=== PATIENT | female | born 1965 | race Caucasian/White ===

== ENCOUNTER 2016-08-19 07:54 | Inpatient (IN) | payer MEDICAID ==
[~2016-08-19 07:54] MED LIST: Bupivacaine 0.5% 50 ML MDV ONE; Lidocaine 1% with EPINEPHrine 1:100,000 50 ML MDV ONE
[2016-08-19] MEDS: Dextrose 5%-Lactated Ringers 1,000 ML IV SCH ×2 (08:29→15:31)
[2016-08-19] MEDS ORDERED: fentaNYL 25 MCG/HR Transdermal Patch TRDERM SCH (08:30)
[2016-08-19] MEDS ORDERED: ceFAZolin 2 GM in Sodium Chloride 0.9% 50 ML IV ONE (09:15)
[2016-08-19] MEDS ORDERED: ceFAZolin 2 GM in Premix Bag 1 BAG IV ONE (09:15)
[2016-08-19] MEDS ORDERED: HYDROmorphone/Normal Saline 15 MG/30 ML PCA IV PRN (09:47)
[2016-08-19] MEDS ORDERED: Naloxone 0.4 MG/ML SDV IVPUSH PRN (09:47)
[2016-08-19] MEDS ORDERED: Midazolam 1 MG/ML 2 ML SDV ONE (11:52)
[2016-08-19] MEDS ORDERED: fentaNYL 250 MCG/5 ML SDV ONE (11:52)
[2016-08-19] MEDS ORDERED: Bupivacaine 0.5%/EPINEPHrine 1:200,000 50 ML MDV ONE (11:55)
[2016-08-19] MEDS ORDERED: Propofol 200 MG/20 ML SDV ONE (12:09)
[2016-08-19] MEDS ORDERED: Ondansetron 4 MG/2 ML SDV ONE (12:09)
[2016-08-19] MEDS ORDERED: Rocuronium 50 MG/5 ML Vial ONE (12:09)
[2016-08-19] MEDS ORDERED: Dexamethasone 4 MG/ML SDV ONE (12:09)
[2016-08-19] MEDS ORDERED: Neostigmine Methylsulfate 1 MG/ML 5 ML Syringe ONE (12:09)
[2016-08-19] MEDS ORDERED: Linezolid 200 MG/100 ML Bag IRR ONE (12:46)
[2016-08-19] MEDS ORDERED: Ketorolac 60 MG/2 ML SDV ONE (12:48)
[2016-08-19] MEDS ORDERED: Pantoprazole 40 MG Vial IVPUSH ONE (13:15)
[2016-08-19] MEDS ORDERED: Ondansetron 4 MG/2 ML SDV IVPUSH ONE (13:30)
[2016-08-19] MEDS ORDERED: Naloxone 0.4 MG/ML SDV IV PRN (14:38)
[2016-08-19] MEDS: VERIFY FENTANYL PATCH TOP SCH ×2 (15:02→21:14)
[2016-08-19] MEDS ORDERED: Acetaminophen 325 MG Tab PO PRN (16:21)
[2016-08-19] MEDS: Nicotine 21 MG/24 Hr Patch TRDERM PRN (16:41)
[2016-08-19] MEDS: ceFAZolin 2 GM in Sodium Chloride 0.9% 50 ML IV SCH (17:37)
[2016-08-19] MEDS ORDERED: diphenhydrAMINE 50 MG/ML SDV IVPUSH PRN (19:18)
[2016-08-19] MEDS: Acetaminophen/oxyCODONE 325-5 MG Tab PO PRN (21:18)
[2016-08-19] MEDS: Ibuprofen 600 MG Tab PO PRN (23:47)
[2016-08-20] MEDS: Acetaminophen/oxyCODONE 325-5 MG Tab PO PRN ×3 (01:30→09:36)
[2016-08-20] MEDS: ceFAZolin 2 GM in Sodium Chloride 0.9% 50 ML IV SCH ×2 (01:31→09:16)
[2016-08-20] MEDS: Nicotine 21 MG/24 Hr Patch TRDERM PRN (07:43)
[2016-08-20] MEDS: Ibuprofen 600 MG Tab PO PRN (07:43)
[2016-08-20 07:55] VITALS: BP 128/61
[2016-08-20] MEDS ORDERED: Pantoprazole 40 MG Vial IV SCH (09:00)
[2016-08-20] MEDS: VERIFY FENTANYL PATCH TOP SCH (09:17)
--- NOTE | 2016-08-21 03:56 | DISCH ---
ADMISSION DIAGNOSIS: Recurrent right inguinal hernia, primary essential hypertension. DISCHARGE DIAGNOSES: Right inguinal exploration with repair of recurrent inguinal hernia, removal of intraperitoneal foreign body (previous mesh division of right inguinal nerve and division of right inguinal hernia nerve) for recurrent right incisional hernia with entrapment of right inguinal nerve and interruption of intraperitoneal mesh on 08/19/2016. HISTORY: Darlene Saavedra is a 51-year-old female with right recurrent incisional hernia with increased pain. After preoperative evaluation and discussion of possible risks and possible complications, she wished to proceed with surgical procedure. HOSPITAL COURSE: Darlene had her surgery on 08/19/2016. She had no operative complications. On postop day #1, she was able to be discharged to home. PHYSICAL EXAMINATION: GENERAL: Darlene is a 51-year-old female. Height is 5 feet 5 inches. Weight is 166 pounds. VITAL SIGNS: TPR is 97.3, 65, 18, blood pressure 128/61. HEENT: Negative. NECK: Supple. HEART: Regular rate and rhythm. LUNGS: Clear. ABDOMEN: Dressings dry and intact. Abdominal binder is on. EXTREMITIES: Without peripheral edema. NEURO: Intact. SKIN: Without rash. DISPOSITION: Discharged to home. CONDITION: Stable and improving. FOLLOWUP APPOINTMENT: 1. With Consuelo Varela PA-C on 08/28/2016 at 9:00 a.m. 2. Follow up with Av Cobian MD on 09/03/2016 at 9 a.m. HOME MEDICATION: 1. Percocet 5/325 mg 1 to 2 every 4 hours p.r.n. pain #50. 2. Ibuprofen 600 mg q.6 hours p.r.n. lesser pain. 3. Fentanyl patch, remove on Thursday08/23/2016. 4. Continue home medications of Chantix one tablet twice daily, acetaminophen 650 mg every 4 hours p.r.n. pain. DIET: Usual diet as tolerated. Drink 8 to 10 glasses of water a day. ACTIVITY: No lifting greater than 10 pounds for 6 weeks[address] Driving, do not drive on pain medication. Shower bathing, may shower. Keep operative site clean and dry. Wear abdominal binder for 4 weeks and then as needed. Notify provider if any fever, increased pain, swelling, redness, drainage, nausea, or vomiting. SPECIAL INSTRUCTION: Use incentive spirometer 10 times every hour while awake for 2 weeks.
--- NOTE | 2016-08-22 14:02 | OR ---
DATE OF PROCEDURE: 08/19/2016 PREOPERATIVE DIAGNOSIS: Severe pain associated with recurrent incarcerated right inguinal hernia. POSTOPERATIVE DIAGNOSIS: Severe pain associated with recurrent incarcerated right inguinal hernia with entrapment of the ilioinguinal nerve and migration of intraperitoneal mesh above on the Addy's ligament. OPERATIVE PROCEDURE: Right inguinal exploration with: 1. Repair of recurrent right inguinal hernia with mesh plug technique (93785). 2. Removal of intraperitoneal of foreign body (previously placed mesh) (66097). 3. Division of right ilioinguinal nerve (88807). 4. Division of right iliohypogastric nerve (45041). ANESTHESIA: General. CAKE WRAPPER: Consuelo Varela PA-C. INDICATIONS FOR PROCEDURE: This is a 51-year-old presenting with marked pain in the right inguinal area. She has had previously 2 repairs of the hernia. One of this involved laparoscopic transperineal approach. That peritoneal mesh has now migrated into the plane above Addy's ligament, and this appeared to be associated with marked pain along with recurrence of the hernia. The plan is to proceed with a right inguinal exploration, removal of those mesh, and re-repair of the inguinal hernia, and division of the probably both the right ilioinguinal and iliohypogastric nerves to limit postoperative pain. Potential risks including bleeding, infection, recurrence of the hernia, chronic pain consisting were all reviewed, and the patient wishes to proceed. DETAILS OF PROCEDURE: The patient was taken to the operating room and placed in a supine position. After general endotracheal anesthesia was induced, the abdomen and groin areas were prepped and draped. Previously the right inguinal incision was then reused and extended slightly laterally, continued down through the skin and subcutaneous tissue. The external oblique aponeurosis was then divided to the length of the incision and some flaps raised superiorly and inferiorly. The 2 previously placed meshes were then excised using electrocautery. The more lateral of these truly had the ilioinguinal nerve entering a massive scar and more or less involving the mesh. This nerve was divided at that point, then also divided further lateral in the incision. The iliohypogastric nerve was then also identified and divided at the far lateral aspect of the incision. The patient had an indirect defect at this point, and dissection of the conjoined tendon superiorly, laterally, and inferiorly was undertaken bluntly. An extra large mesh plug was then placed. This was then affixed to Addy's ligament with titanium tacking screws, which should in all likelihood to keep that in proper position. The mesh was then secured with horizontal mattress sutures and is underlying the edges of the conjoined tendon superiorly, laterally, and medially. The conjoined tendon secured to the inguinal ligament with a running 1-0 Vicryl stitch to avoid problems with the patient feeling pain related to the more superficial mesh. The flat portion of the mesh system was not placed in this case. External oblique aponeurosis was approximated with a running #1 Vicryl stitch as well. The larger stitch was usually used as this was actually quite densely scarred and would likely have some substantial benefit in terms of reinforcing the closure. The subcutaneous tissue was then approximated with some 3-0 Vicryl stitch and the skin with debra. The incision was then anesthetized with 0.5% Marcaine. The patient was taken to the recovery room in satisfactory condition. Physician anesthesia assistant, Consuelo Varela played an essential role in assisting in this case, helping position the patient, suturing and stapling as indicated, and her presence improved the patient safety and decreased operative time. Av Cobian MD /[id number]
== END 2016-08-20 10:00 | disposition home or self-care (01) | DRG 352 ==
LOC: JP.MS 07:54 → JP.SDS 07:54 → EDSTATUS 10:15 → JP.2SS 13:56
PROVIDERS: ADMIT Surgery; ATTEND Surgery
PROC: 0YU54JZ Supplement Right Inguinal Region with Synthetic Substitute, Percutaneous Endoscopic Approach (ICD-10-PCS; principal; 2016-08-19)
PROC: 018 Peripheral Nervous System, Division (ICD-10-PCS; 2016-08-19)
PROC: 0WPG4JZ Removal of Synthetic Substitute from Peritoneal Cavity, Percutaneous Endoscopic Approach (ICD-10-PCS; 2016-08-19)
DX: K40.90 Unilateral inguinal hernia, without obstruction or gangrene, not specified as recurrent (principal); F41.9 Anxiety disorder, unspecified; I10 Essential (primary) hypertension; F17.210 Nicotine dependence, cigarettes, uncomplicated
CPT/HCPCS: 36415; 80053; 85027; 88300; 88305; 94762; A9270-GY; C1781; C9113; J0690; J1100; J1170; J1200; J1885; J2020; J2250; J2405; J2704; J3010; J7042; J7050

== ENCOUNTER 2016-08-23 14:41 | Emergency (ER) | payer MEDICAID ==
[2016-08-23 15:29] VITALS: BP 136/95
--- NOTE | 2016-08-23 16:28 | EDM.PDOC ---
ED HPI GENERAL MEDICAL PROBLEM - General Chief Complaint: General Stated Complaint: PAIN RIGHT LEG SURGERY 08/19/16 Time Seen by Provider: 08/23/16 16:05 Source of Information: Reports: Patient, Family, RN notes reviewed History Limitations: Reports: No limitations - History of Present Illness INITIAL COMMENTS - FREE TEXT/NARRATIVE: 51-year-old female presents to emergency department for a complaint of shortness of breath, she recently had surgery she is postop day 4 she states she has progressively been getting short of breath over the last couple days she 's developed right leg pain over the last 24 hours she denies any nausea or vomiting, she is passing gas does describe heartburn type symptomatology with pain radiating into the back Right Lower Abdominal Pain Score (Numeric/FACES): 5 - Related Data Allergies Allergy/AdvReac Type Severity Reaction Status Date / Time No Known Allergies Allergy Verified 08/18/16 13:45 Home Meds: Home Meds Varenicline [Chantix] 1 tab PO BID 05/11/16 [History] Acetaminophen [Tylenol] 650 mg PO Q4H PRN #0 tablet 08/20/16 [Rx] Acetaminophen/oxyCODONE [Percocet 325-5 MG] 1 - 2 tab PO Q4H PRN #50 tablet 01/29 [Rx] Ibuprofen [IJD: Ibuprofen] 600 mg PO Q6H PRN #100 tablet 08/20/16 [Rx] Past Medical History HEENT History: Reports: Allergic rhinitis, Impaired vision Respiratory History: Reports: Bronchitis, recurrent Gastrointestinal History: Reports: Bowel obstruction, Other (see below) Other Gastrointestinal History: right inguinal hernia Hematoma removed from groin Hernia surgery x6. Genitourinary History: Reports: Other (see below) Other Genitourinary History: Cyst on kidney MD DO [facility] History: Reports: Dysfunctional uterine bleeding, Endometriosis, Fibroids , , Spontaneous Other OB/BYN History: "tumor in uterus" Musculoskeletal History: Reports: Fracture, Osteoarthritis Psychiatric History: Reports: Anxiety, Panic attack - Infectious Disease History Infectious Disease History: Reports: Mumps - Past Surgical History GI Surgical History: Reports: Hernia repair/other Other GI Surgeries/Procedures: Hernia surgery x6. r side. Female Surgical History: Reports: Hysterectomy Musculoskeletal Surgical History: Reports: Other (see below) Other Musculoskeletal Surgeries/Procedures:: ulner nerve surgery Pins in l ankle Social & Family History - Family History Family Medical History: Noncontributory HEENT: Reports: Impaired vision Cardiac: Reports: Heart failure Respiratory: Reports: COPD GI: Reports: None : Reports: None OBGYN: Reports: None Musculoskeletal: Reports: Fibromyalgia Neurological: Reports: None Psychiatric: Reports: Anxiety, Depression, Panic attack Endocrine/Metabolic: Reports: Diabetes, type II Hematologic: Reports: None Immunologic: Reports: None Dermatologic: Reports: None Oncologic: Reports: Ovarian - Tobacco Use Smoking Status *Q: Light Tobacco Smoker Years of Tobacco use: 30 Packs/Tins Daily: 0.5 Used Tobacco, but Quit: Yes Month Tobacco Last Used: Dec Second Hand Smoke Exposure: No - Caffeine Use Caffeine Use: Reports: Coffee Other Caffeine Use: 6 cups a day - Alcohol Use Days Per Week of Alcohol Use: 1 Number of Drinks Per Day: 1 Total Drinks Per Week: 1 - Recreational Drug Use Recreational Drug Use: No ED ROS GENERAL - Review of Systems Review Of Systems: See Below Constitutional: Denies: fever, chills HEENT: Reports: No symptoms Respiratory: Reports: shortness of breath. Denies: cough, sputum Cardiovascular: Reports: Dyspnea on exertion. Denies: Chest pain GI/Abdominal: Reports: No symptoms : Reports: no symptoms Musculoskeletal: Reports: leg pain Skin: Reports: no symptoms Neurological: Reports: no symptoms ED EXAM, GENERAL - Physical Exam Exam: See Below Free Text/Narrative:: General: Female, not in any distress, alert and oriented x3 HEENT: head is atraumatic normocephalic, eyes pupils equal round reactive to light and accommodation sclera clear no conjunctivitis appreciated. Ears tympanic membranes clear and peres landmarks and light reflex are present bilaterally canals are clear. Nose no septal deviation, nares are clear, no blood present. Mouth mucosa is moist and pink no erythema or exudate noted in soft palate, tongue is midline uvula is midline, dentition is intact. Neck: Supple no thyromegaly no tracheal deviation. Nodes: Cervical nodes subclavicular nodes nontender no palpable lymphadenopathy noted. Lungs: clear to auscultation bilaterally with symmetrical respirations, no adventitious noise appreciated. CV: Regular rate and rhythm S1 and S2 appreciated no murmurs rubs or gallops noted. Abdomen: Soft, generalized tenderness to palpation not unexpected postop day 4, no palpable masses or organomegaly appreciated, no distention no guarding bowel sounds are present, surgical wound clean dry and intact debra in place mild ecchymotic bruising around the wound. Neuro: Cranial nerves II through XII grossly intact Skin: Warm and dry, intact Extremities: No lower extremity edema appreciated, pedal pulse is +2. Course - Vital Signs Last Recorded V/S: Last Vital Signs Temp 98.4 F 08/23/16 15:29 Pulse 77 08/23/16 15:29 Resp 16 08/23/16 15:29 BP 136/95 H 08/23/16 15:29 Pulse Ox 99 08/23/16 15:29 - Orders/Labs/Meds Orders: Active Orders 24 hr Category Date Time Status EKG Documentation Completion [RC] ASDIRECTED Care 08/23/16 16:24 Active Chest 2V [CR] Urgent Exams 08/23/16 16:23 Taken EKG 12 Lead [EK] Urgent Ther 08/23/16 16:23 Ordered Labs: Laboratory Tests 08/23/16 08/23/16 08/23/16 Range/Units 16:34 16:34 16:34 WBC 5.3 (4.5-11.0) K/uL RBC 4.58 (3.30-5.50) M/uL Hgb 14.2 (12.0-15.0) g/dL Hct 42.8 (36.0-48.0) % MCV 93 (80-98) fL MCH 31 (27-31) pg MCHC 33 (32-36) % Plt Count 130 L (150-400) K/uL Neut % (Auto) 44 (36-66) % Lymph % (Auto) 41 (24-44) % [place] % (Auto) 8 H (2-6) % Eos % (Auto) 6 H (2-4) % Baso % (Auto) 2 H (0-1) % D-Dimer, Quantitative 430 H (0.0-400.0) ng/mL Sodium 141 (140-148) mmol/L Potassium 4.4 (3.6-5.2) mmol/L Chloride 105 (100-108) mmol/L Carbon Dioxide 30 (21-32) mmol/L Anion Gap 6.0 (5.0-14.0) mmol/L BUN 13 (7-18) mg/dL Creatinine 0.8 (0.6-1.0) mg/dL Est Cr Clr Drug Dosing 74.02 mL/min Estimated GFR (MDRD) > 60 (>60) Glucose 113 H (74-106) mg/dL Calcium 8.9 (8.5-10.1) mg/dL Total Bilirubin 0.3 (0.2-1.0) mg/dL AST 57 H D (15-37) U/L ALT 97 H (12-78) U/L Alkaline Phosphatase 94 (46-116) U/L Troponin I < 0.017 (0.000-0.056) ng/mL Total Protein 6.9 (6.4-8.2) g/dL Albumin 3.4 (3.4-5.0) g/dL Globulin 3.5 (2.3-3.5) g/dL Albumin/Globulin Ratio 1.0 L (1.2-2.2) Urine Color Urine Appearance Urine pH (4.5-8.0) Ur Specific [place] (1.008-1.030) Urine Protein (NEGATIVE) mg/dL Urine Glucose (UA) (NEGATIVE) mg/dL Urine Ketones (NEGATIVE) mg/dL Urine Occult Blood (NEGATIVE) Urine Nitrite (NEGATIVE) Urine Bilirubin (NEGATIVE) Urine Urobilinogen (NORMAL) mg/dL Ur Leukocyte Esterase (NEGATIVE) Urine RBC (0-5) Urine WBC (0-5) Ur Epithelial Cells Amorphous Sediment Urine Bacteria Urine Mucus 08/23/16 Range/Units 16:53 WBC (4.5-11.0) K/uL RBC (3.30-5.50) M/uL Hgb (12.0-15.0) g/dL Hct (36.0-48.0) % MCV (80-98) fL MCH (27-31) pg MCHC (32-36) % Plt Count (150-400) K/uL Neut % (Auto) (36-66) % Lymph % (Auto) (24-44) % [place] % (Auto) (2-6) % Eos % (Auto) (2-4) % Baso % (Auto) (0-1) % D-Dimer, Quantitative (0.0-400.0) ng/mL Sodium (140-148) mmol/L Potassium (3.6-5.2) mmol/L Chloride (100-108) mmol/L Carbon Dioxide (21-32) mmol/L Anion Gap (5.0-14.0) mmol/L BUN (7-18) mg/dL Creatinine (0.6-1.0) mg/dL Est Cr Clr Drug Dosing mL/min Estimated GFR (MDRD) (>60) Glucose (74-106) mg/dL Calcium (8.5-10.1) mg/dL Total Bilirubin (0.2-1.0) mg/dL AST (15-37) U/L ALT (12-78) U/L Alkaline Phosphatase (46-116) U/L Troponin I (0.000-0.056) ng/mL Total Protein (6.4-8.2) g/dL Albumin (3.4-5.0) g/dL Globulin (2.3-3.5) g/dL Albumin/Globulin Ratio (1.2-2.2) Urine Color Yellow Urine Appearance Slightly cloudy Urine pH 7.0 (4.5-8.0) Ur Specific [place] 1.015 (1.008-1.030) Urine Protein Negative (NEGATIVE) mg/dL Urine Glucose (UA) Normal (NEGATIVE) mg/dL Urine Ketones Negative (NEGATIVE) mg/dL Urine Occult Blood Negative (NEGATIVE) Urine Nitrite Negative (NEGATIVE) Urine Bilirubin Negative (NEGATIVE) Urine Urobilinogen Normal (NORMAL) mg/dL Ur Leukocyte Esterase Negative (NEGATIVE) Urine RBC 0-5 (0-5) Urine WBC 0-5 (0-5) Ur Epithelial Cells Few Amorphous Sediment Moderate Urine Bacteria Not seen Urine Mucus Not seen Meds: Medications Discontinued Medications Generic Name Dose Route Start Last Admin Trade Name Freq PRN Reason Stop Dose Admin Al Hydroxide/Mg Hydroxide 15 0 ml 08/23/16 17:29 08/23/16 17:40 ml/ Lidocaine HCl 15 ml PO 08/23/16 17:30 15 ml ONETIME ONE Administration Oxycodone/Acetaminophen 2 tab 08/23/16 17:19 08/23/16 17:21 Percocet 325-5 Mg PO 08/23/16 17:20 2 tab ONETIME ONE Administration Departure - Departure Time of Disposition: 17:56 Disposition: Home, Self-Care 01 Condition: good Clinical Impression: Epigastric pain Forms: ED Department Discharge Additional Instructions: try [id number] products such as Tomy's, Zantac or Nexium, Please followup with your primary care provider in 3-5 days if not better, please call return to the emergency department with worsening of symptoms. - My Orders Last 24 Hours: My Active Orders 08/23/16 16:23 Chest 2V [CR] Urgent EKG 12 Lead [EK] Urgent 08/23/16 16:24 EKG Documentation Completion [RC] ASDIRECTED - Assessment/Plan Last 24 Hours: My Active Orders 08/23/16 16:23 Chest 2V [CR] Urgent EKG 12 Lead [EK] Urgent 08/23/16 16:24 EKG Documentation Completion [RC] ASDIRECTED Plan: Assessment Acuity = acute Site and laterality = reflux type symptomatology Etiology = unclear etiology Manifestations = none Location of injury = home Lab values = CBC unremarkable, d-dimer mildly elevated at 4:30 of indeterminate significance AST elevated 57 ALT elevated at 97 2 elevated liver enzymes troponin was negative urinalysis is negative chest x-ray I did review films myself I cannot appreciate any acute process, the official read from radiology is pending, EKG demonstrates normal sinus rhythm no ST changes or depression Plan she was provided a GI cocktail which did give her significant relief she does have a history of reflux symptomology this possibly could have been exacerbated by her recent surgery she is going try [id number] symptomatic relief followup with surgery next week Patient was in agreement with the plan all questions were answered, they were instructed to return to the emergency department or call for worsening symptoms. This note was dictated using [employer] voice recognition software please call with any questions.
[2016-08-23] MEDS ORDERED: Acetaminophen/oxyCODONE 325-5 MG Tab PO ONE (17:19)
[2016-08-23] MEDS ORDERED: Alum Hydrox/Mag Hydrox/Simeth 15 ML, Lidocaine 2% 15 ML PO ONE ×2 (17:29)
--- NOTE | 2016-08-25 11:04 | CR ---
Heart size within normal limits. Pulmonary vasculature within normal limits. No focal consolidation.
== END 2016-08-23 18:03 | disposition home or self-care (01) ==
LOC: JP.ED 14:41
DX: R10.13 Epigastric pain (principal); F17.210 Nicotine dependence, cigarettes, uncomplicated; Z79.899 Other long term (current) drug therapy; Z90.710 Acquired absence of both cervix and uterus
CPT/HCPCS: 36415; 71020; 80053; 81001; 84484; 85025; 85379; 93005; 99285; A9270; 93010; 99283

== ENCOUNTER 2016-11-11 06:52 | Day surgery (SDC) | payer MEDICAID ==
[~2016-11-11 06:52] MED LIST changes: -Bupivacaine 0.5% 50 ML MDV ONE; +Dextrose 5%-Lactated Ringers 1,000 ML IV SCH; -Lidocaine 1% with EPINEPHrine 1:100,000 50 ML MDV ONE
[2016-11-11] MEDS ORDERED: ceFAZolin 2 GM in Premix Bag 1 BAG IV ONE (07:00)
[2016-11-11] MEDS ORDERED: Lidocaine 1% 50 ML MDV ONE (07:36)
[2016-11-11] MEDS ORDERED: Triamcinolone Acetonide 40 MG/ML 1 ML MDV ONE (07:36)
[2016-11-11] MEDS ORDERED: Bupivacaine 0.5%/EPINEPHrine 1:200,000 50 ML MDV ONE (07:36)
[2016-11-11] MEDS ORDERED: Propofol 200 MG/20 ML SDV ONE (08:35)
[2016-11-11] MEDS ORDERED: fentaNYL 100 MCG/2 ML SDV ONE (08:35)
[2016-11-11] MEDS ORDERED: Midazolam 1 MG/ML 2 ML SDV ONE (08:35)
[2016-11-11 10:20] VITALS: BP 121/84
--- NOTE | 2016-11-27 14:24 | OR ---
DATE OF PROCEDURE: 11/11/2016 PREOPERATIVE DIAGNOSIS: Chronic pain with seroma formation at the site of previous repair of recurrent right inguinal hernia with mesh. POSTOPERATIVE DIAGNOSIS: Chronic pain with seroma formation at the site of previous repair of recurrent right inguinal hernia with mesh. PROCEDURE PERFORMED: 1. Ultrasound-guided aspiration of seroma, right inguinal area (30013). 2. Local anesthetic. Steroid injection at the site of right ilioinguinal nerve and genital branch of genitofemoral nerve (49457, 22111). ANESTHESIA: General. ARCHITECT INTERN: MYCHAL Mendez. INDICATION FOR PROCEDURE: This is a 51-year-old with chronic pain involving the multiply- repaired right inguinal area. Recent ultrasound showed a seroma present. This is in the area somewhat posterior to the mesh, which would correspond to likely connecting with some intraperitoneal fluid. The planned procedure is aspiration of this under ultrasound guidance, as a diagnostic and potentially therapeutic step. We will inject Kenalog with Marcaine at the site of the right ilioinguinal nerve and genital branch of genitofemoral nerve. Potential risks of the procedure including bleeding, infection, possibility of the procedure may not be efficacious in terms of pain relief were all gone over, and the patient wishes to proceed. PROCEDURE IN DETAIL: The patient was taken to the operating room, placed in a supine position. IV sedation was administered, after which the right inguinal region was prepped and draped. Ultrasound then identified the seroma. Using a 16-gauge angiocath; that area was entered under direct visualization with the ultrasound. Only a small amount of fluid was retrieved. This appeared to be in the retropubic plain, ie. retroperitoneal region in terms of the location. The small amount of fluid obtained was clear and serous and was sent for culture. The majority of the seroma cavity remained however, due to likely being semi- solidified at this point. At this point, using standard landmarks, the mixture of Marcaine with epinephrine and Kenalog with 10 mL in each syringe were injected at the right ilioinguinal nerve. This was placed in the muscular layer, two fingerbreadths medial and inferior to the anterior superior iliac spine and at the base of the inguinal floor medially, more or less at the level of the external ring. Additional 10 mL of this solution was injected, which should incorporate the genital branch of genitofemoral nerve. At that point, no further problems noted. The dressing was applied. The patient was taken to the recovery room in satisfactory condition. Av Cobian MD /[id number]
== END 2016-11-11 10:30 | disposition home or self-care (01) ==
LOC: JP.SDS 06:52
PROVIDERS: ATTEND Surgery
PROC: 0W9G30Z Drainage of Peritoneal Cavity with Drainage Device, Percutaneous Approach (ICD-10-PCS; principal; 2016-11-11)
PROC: 3E0T33Z Introduction of Anti-inflammatory into Peripheral Nerves and Plexi, Percutaneous Approach (ICD-10-PCS; 2016-11-11)
PROC: 3E0T3BZ Introduction of Anesthetic Agent into Peripheral Nerves and Plexi, Percutaneous Approach (ICD-10-PCS; 2016-11-11)
DX: K91.872 Postprocedural seroma of a digestive system organ or structure following a digestive system procedure (principal); Y83.8 Other surgical procedures as the cause of abnormal reaction of the patient, or of later complication, without mention of misadventure at the time of the procedure; G89.29 Other chronic pain; R10.31 Right lower quadrant pain
CPT/HCPCS: 49406; 64425; 64450; 76998; 87070; 87075; 87205; J0690; J2250; J2704; J3010; J3301; J7042

== ENCOUNTER 2016-11-28 05:32 | Inpatient (IN) | payer MEDICAID ==
[~2016-11-28 05:32] MED LIST changes: -Dextrose 5%-Lactated Ringers 1,000 ML IV SCH; +ceFAZolin 2 GM in Sodium Chloride 0.9% 100 ML IV ONE; +ceFAZolin 2 GM in Sodium Chloride 0.9% 50 ML IV ONE
[2016-11-28] MEDS ORDERED: Dextrose 5%-Lactated Ringers 1,000 ML IV SCH (05:45)
[2016-11-28] MEDS ORDERED: Rocuronium 50 MG/5 ML Vial ONE (06:55)
[2016-11-28] MEDS ORDERED: fentaNYL 250 MCG/5 ML SDV ONE (06:55)
[2016-11-28] MEDS ORDERED: Dexamethasone 4 MG/ML SDV ONE (06:55)
[2016-11-28] MEDS ORDERED: Succinylcholine/Normal Saline 200 MG/10 ML Syringe ONE (06:55)
[2016-11-28] MEDS ORDERED: Ondansetron 4 MG/2 ML SDV ONE (06:55)
[2016-11-28] MEDS ORDERED: Propofol 200 MG/20 ML SDV ONE (06:55)
[2016-11-28] MEDS ORDERED: Neostigmine Methylsulfate 1 MG/ML 5 ML Syringe ONE (06:55)
[2016-11-28] MEDS ORDERED: Bupivacaine 0.5%/EPINEPHrine 1:200,000 50 ML MDV ONE (07:00)
[2016-11-28] MEDS ORDERED: Meropenem 500 MG SDV ONE (07:00)
[2016-11-28] MEDS ORDERED: Naloxone 0.4 MG/ML SDV IVPUSH PRN (07:19)
[2016-11-28] MEDS ORDERED: HYDROmorphone/Normal Saline 15 MG/30 ML PCA IV PRN (07:19)
[2016-11-28] MEDS ORDERED: Linezolid 200 MG/100 ML Bag IRR ONE (07:35)
[2016-11-28] MEDS ORDERED: Lactated Ringers 1,000 ML ONE (08:18)
[2016-11-28] MEDS ORDERED: Labetalol 20 MG/4 ML Syringe ONE (08:46)
[2016-11-28] MEDS ORDERED: fentaNYL 100 MCG/2 ML SDV ONE (09:20)
[2016-11-28] MEDS ORDERED: Lidocaine 2% 100 MG/5 ML Syringe IVPUSH ONE (09:30)
[2016-11-28] MEDS ORDERED: Ketamine 500 MG/5 ML MDV IV SCH (09:30)
[2016-11-28] MEDS ORDERED: Gabapentin 300 MG Cap PO ONE (10:51)
[2016-11-28] MEDS ORDERED: hydrOXYzine HCl 50 MG/ML SDV IM ONE (10:53)
[2016-11-28] MEDS ORDERED: Lactated Ringers 500 ML IV ONE (11:00)
[2016-11-28] MEDS ORDERED: Ondansetron 4 MG/2 ML SDV IV PRN (12:04)
[2016-11-28] MEDS: Lidocaine 0.4%/D5W 2 GM/500 ML BAG IV SCH (13:26)
[2016-11-28] MEDS: Dextrose 5%-Lactated Ringers 1,000 ML IV SCH ×2 (15:14→22:15)
[2016-11-28] MEDS: Gabapentin 300 MG Cap PO SCH ×2 (16:15→20:50)
[2016-11-28] MEDS: ceFAZolin 2 GM in Sodium Chloride 0.9% 50 ML IV SCH ×2 (16:15→23:57)
[2016-11-28] MEDS: Celecoxib 200 MG Cap PO SCH (16:15)
[2016-11-29] MEDS: Acetaminophen/oxyCODONE 325-5 MG Tab PO PRN ×5 (01:17→21:27)
[2016-11-29] MEDS: Lidocaine 0.4%/D5W 2 GM/500 ML BAG IV SCH (01:58)
[2016-11-29] MEDS: Dextrose 5%-Lactated Ringers 1,000 ML IV SCH ×2 (05:20→14:47)
[2016-11-29] MEDS ORDERED: Ondansetron 4 MG Tab.DIS PO PRN (07:13)
[2016-11-29] MEDS ORDERED: Ibuprofen 600 MG Tab PO PRN (07:13)
[2016-11-29] MEDS ORDERED: Acetaminophen 325 MG Tab PO PRN (07:13)
[2016-11-29] MEDS: ceFAZolin 2 GM in Sodium Chloride 0.9% 50 ML IV SCH (08:05)
[2016-11-29] MEDS: Nicotine 14 MG/24 Hr Patch TRDERM SCH (08:12)
[2016-11-29] MEDS: Gabapentin 300 MG Cap PO SCH ×3 (08:13→21:28)
[2016-11-29] MEDS: Celecoxib 200 MG Cap PO SCH (08:13)
[2016-11-29] MEDS: Polyethylene Glycol 3350 Powder 17 GM Packet PO SCH (08:39)
--- NOTE | 2016-11-29 11:02 | PN ---
DATE OF SERVICE: 11/29/2016 SUBJECTIVE: Darlene is postop day #1, her Davis catheter was discontinued at 0400 hours and she has voided. She did report some blurred vision. Lidocaine was stopped, reporting her MACHINE PACKAGE SEALER was discontinued. During the night she was started on Percocet and she feels her pain is controlled, better on the Percocet than the MACHINE PACKAGE SEALER. She is requesting a nicotine patch. She has been on Chantix, but she has only taken it 2 to 3 days and prefers a nicotine patch. She reports not feeling weak, having a lot of pain, getting up and down from the chair and bed, and not comfortable to be discharged to home. She is requesting a stool softener. She states she gets extremely constipated, whenever she has surgery. REVIEW OF SYSTEMS: Remainder of review of systems negative for any pertinent positives and negatives. OBJECTIVE: GENERAL: Darlene Saavedra is a 51-year-old female, emotional this morning. VITAL SIGNS: TPR is 99.5, 80, 17, blood pressure 129/88. HEENT: Negative. NECK: Supple. HEART: Regular rate and rhythm. LUNGS: Clear. ABDOMEN: Dressings dry and intact. Abdominal binder is on. EXTREMITIES: Revealed trace peripheral edema. ASSESSMENT: Right inguinal exploration removal of mass, ligation of right ilioinguinal nerve, diagnostic laparoscopy with repair of right inguinal hernia with mesh, and repair of umbilical hernia with mesh on 11/28/2016. PLAN: 1. Discontinue telemetry. 2. Dressing off. 3. May shower. 4. Decrease IV rate to 100 mL/hour. 5. Saline lock if oral intake adequate. 6. Nicotine patch 14 mg replace every 24 hours. 7. MiraLAX 17 g p.o. daily. 8. Good pulmonary toilet encouraged. 9. We will evaluate p.r.n. or in a.m. 10.Plan discharge in a.m. Consuelo Varela PA-C /[id number]
[2016-11-29] MEDS ORDERED: Calcium Carbonate 500 MG Tab.Chew PO PRN (21:30)
[2016-11-30] MEDS: Acetaminophen/oxyCODONE 325-5 MG Tab PO PRN ×2 (01:43→05:55)
[2016-11-30 07:55] VITALS: BP 120/59
[2016-11-30] MEDS: Polyethylene Glycol 3350 Powder 17 GM Packet PO SCH (08:21)
[2016-11-30] MEDS: Gabapentin 300 MG Cap PO SCH (08:21)
[2016-11-30] MEDS: Celecoxib 200 MG Cap PO SCH (08:21)
[2016-11-30] MEDS: Nicotine 14 MG/24 Hr Patch TRDERM SCH (08:27)
--- NOTE | 2016-12-01 14:26 | DISCH ---
FINAL DIAGNOSES: 1. Chronic pain secondary to recurrent right inguinal hernia. 2. Incisional hernia at umbilical trocar site. ADDITIONAL DIAGNOSIS: Venous insufficiency. OPERATIVE PROCEDURE: 1. Right inguinal exploration with:. a. Removal of prolapsing mesh located within the hernia sac. b. Probable ligation of right ilioinguinal nerve. 2. Diagnostic laparoscopy with:. a. Repair of recurrent right inguinal hernia with mesh. b. Repair of incisional hernia with mesh. HOSPITAL COURSE: This is a 51-year-old presenting with quite marked pain in her right inguinal hernia. This appears to be related to prolapsing of the mesh within the recurrent hernia on the right side, that I think it is primarily due to the motion of the mesh rather than anything specific to do with the mesh per se. Anyway, this was removed at the time of the exploration as well as attempted to identify what appeared to be the ilioinguinal nerve somewhat lateral to the previous incision to divide that to limit any persistent neuropathic pain. The previous ligation of the nerve, did not on pathology report show any obvious nerve fibers whether that was simply missed in terms of scar or the nerve was not in fact divided and at that time, it was uncertain given this reattempted and identified and divided the nerve one time at this procedure. Following that, the patient had a laparoscopic repair of the right recurrent inguinal hernia. There was some omentum caught in the hernia as well which was reduced and this was repaired with a flat soft polypropylene mesh which was then covered with omentum to try to minimize the amount of adhesion formation as the peritoneal closure of the polypropylene mesh was only about 80% covering the mesh with conclusion of the procedure. Postoperatively, the patient had some expected amount of discomfort. She appeared to be otherwise doing well. She can be discharged home. Continue her usual medications to be given some additional ibuprofen as well as percocet 600 mg q.i.d. p.r.n. for the previous dose of q.12 hours. While she's on the higher dose of ibuprofen, we will have her also on Protonix 40 mg a day for the next 3 days. She will be scheduled for followup with Consuelo Varela in [facility] on 12/08/[address] Cobian in [facility] on 12/17/2016.
--- NOTE | 2016-12-03 09:04 | OR ---
DATE OF PROCEDURE: 11/28/2016 PREOPERATIVE DIAGNOSES: 1. Chronic pain associated with recurrent right inguinal hernia. 2. Incisional hernia at umbilical trocar site. POSTOPERATIVE DIAGNOSES: 1. Chronic pain associated with recurrent right inguinal hernia. 2. Incisional hernia at umbilical trocar site. OPERATIVE PROCEDURE: 1. Right groin exploration with:. a. Removal of prolapsing intraperitoneal mesh (17130). b. Probable division of the right ilioinguinal nerve (16114). 2. Diagnostic laparoscopy with:. a. Lysis of adhesions and repair of recurrent incarcerated right inguinal hernia with mesh (88193). b. Repair of incisional hernia with mesh (43615). ANESTHESIA: General. ORTHOTIC FITTER: Consuelo Varela PA-C. INDICATIONS FOR PROCEDURE: This is a 51-year-old presenting with ongoing chronic groin pain. At this point, it appears that the patient has a recurrence of the hernia in the right inguinal area. This contains some of the mesh, more or less floating within the hernia, likely attached to the part of the hernia sac, which is causing quite a bit of discomfort. I suspect that the pain is primarily related to the motion of the hernia containing the mesh rather than of the mesh itself as she does have some other mesh in the groin area that is not associated with significant tenderness. The plan is to proceed with exploration of the groin, we will remove that mesh attached to hernia sac and we will also attempt to identify the right ilioinguinal nerve, somewhat lateral to the previous extent of the dissection of the previous procedure what appeared to be the ilial nerve was divided. Pathologist failed to see any nerve fibers that was obscured by scar but well try as best as possible to relieve the discomfort in this area. We will attempt to identify the ilioinguinal nerve somewhat more laterally and divide it. We will then proceed with a laparoscopy with repair of the right inguinal hernia from transperitoneal laparoscopic approach, which I think would more than likely be a procedure that would long- term be satisfactory. We will use a light-weight thin polypropylene mesh in that location. She also has a hernia in the periumbilical area. This appears to be an incisional hernia related to previous trocar site used in that area adjacent to the umbilicus, and the plan will be to repair that with a mesh as well. Potential risks of procedure including bleeding, infection, persistent chronic pain, recurrence of the hernia, possible injury to underlying viscera and nerves in the area of the dissection were all gone over and the patient wishes to proceed. DETAILS OF PROCEDURE: The patient was taken to the operating room and placed in a supine position. After general endotracheal anesthesia was induced, a Davis catheter was inserted and the abdomen and groin region were prepped and draped. The previous right inguinal incision was then reused and carried down through the skin and subcutaneous tissue. The area of the hernia sac was then eventually dissected down onto this contained mesh which was prolapsing within it. This had the expected amount of inflammation around it. Given the relative motion and the expected inflammatory reaction around the mesh, this was excised along with some of the portion of the hernia sac and the hernia sac was at that point sutured with a 3-0 Vicryl stitch. The conjoint tendon was then approximated to the shelving portion of the inguinal ligament with a running #1 Vicryl stitch. This later repair would be the initial closure but the definitive repair of this hernia would need to be the transperitoneal mesh placement as the tissues were fairly thinned out. The incision was then extended somewhat laterally and superiorly and dissection underneath the external oblique aponeurosis revealed what appeared to be a nerve root located in the typical location for the ilioinguinal nerve. This was divided and at that point, no further problems were noted in the groin region. The external oblique aponeurosis was approximated with a 4-0 Vicryl stitch as was the Teri's fascia and the skin closed with a 4-0 Vicryl subcuticular stitch. Attention was then taken to the laparoscopic phase of the procedure, 3 fingerbreadths superior and to the left of the umbilicus, a transverse incision was made, and peritoneal cavity entered under direct vision with an Optiview trocar, 15 mmHg pressure with CO2. Actually 2 additional trocars were placed across the upper abdomen and the area examined. The patient was noted to have within the hernia some incarcerated omentum. The hernia had 2 components of a very medial, direct type hernia as well as laxity along the level of the internal ring. The primary hernia has been symptomatic disease of the direct hernia, which was located almost directly over the pubic tubercle and quite medial and then extended downward and somewhat laterally. The omentum from this area was then dissected free with Harmonic scalpel and delivered from the field. The peritoneum parallel to the hernia several centimeters above the area of concern was then incised transversely, and this was then dissected downward across the area of the hernia, and then down to the point where the Addy's ligament was identified for a length of the area of the herniation, and then mid lateral to that as well in a posterior direction. A polypropylene mesh measuring 15 x 15 cm was then selected. The area was mapped out and the mesh cut in appropriate dimension such that it would lie satisfactorily to help orient the mesh. Two stay sutures were placed on the ends of the mesh, and the mesh was placed in intraperitoneal location. Stay sutures were pulled, one was in the far lateral aspect of the area of mesh placed in the far medial aspect mesh placement. The sutures were tied and this generally oriented the mesh. This then allowed initial placement of the titanium tacking screws beginning at the level of the pubic tubercle and down along Addy's ligament. Care was taken to avoid more lateral clip placement in that area, so as to avoid injuring the nerves in that region. Clips were then placed laterally and superiorly to the abdominal wall as well as medially and at that point, the mesh appeared to be well fixed and provided good coverage away from the area of herniation in all areas. The peritoneum was then approximated over this with hernia clips as well. A small portion of the mesh was not able to be covered by the hernia, and given this some of the omentum was then brought down posterior to the area of herniation and fixed there around Addy's ligament which would facilitate the mesh being in contact with the omentum rather than any of the viscera. The small hernia that was located just superior to the umbilicus was then identified. A [address] Hernia Patch was then selected and soaked in antibiotic-containing saline solution. A single stitch in the center of the polypropylene side of the mesh was then placed, with this screened with 2-0 Vicryl stitch and the stab wounds placed over the area of herniation in the mesh and pulled up. This was then fixed circumferentially with some tacking screws as well, and at that point, no further problems noted intra-abdominally. The trocars were removed. Fashions and 12 mm sites were closed with 0 Vicryl stitch and skin with a 4-0 Vicryl skin stitch. Dressing was applied. The patient was taken to the recovery room in satisfactory condition. There were no evident complications. Physician orthopedic assistant, Consuelo Varela, played an essential role in assisting in this case, helping to position the patient, retract structures as needed, as well as suturing and cutting sutures as indicated, her presence improved patient's safety and decreased the operative time. Av Cobian MD /[id number]
== END 2016-11-30 09:18 | disposition home or self-care (01) | DRG 352 ==
LOC: JP.SDSSCHI 05:32 → JP.SDS 05:32 → EDSTATUS 07:30 → JP.2SS 10:40
PROVIDERS: ADMIT Surgery; ATTEND Surgery
PROC: 0WPF0JZ Removal of Synthetic Substitute from Abdominal Wall, Open Approach (ICD-10-PCS; principal; 2016-11-28)
PROC: 0YU54JZ Supplement Right Inguinal Region with Synthetic Substitute, Percutaneous Endoscopic Approach (ICD-10-PCS; principal; 2016-11-28)
PROC: 0WUF4JZ Supplement Abdominal Wall with Synthetic Substitute, Percutaneous Endoscopic Approach (ICD-10-PCS; principal; 2016-11-28)
DX: K40.91 Unilateral inguinal hernia, without obstruction or gangrene, recurrent (principal); K43.2 Incisional hernia without obstruction or gangrene; R10.31 Right lower quadrant pain; G89.29 Other chronic pain
CPT/HCPCS: 36415; 80048; 83735; 84100; 85027; 88300; 88302; 88304; 88342; A9270-GY; C1781; J0690; J1100; J1170; J2001; J2020; J2185; J2405; J2704; J3010; J3410; J7030; J7042; J7050; J7120

== ENCOUNTER 2017-05-07 09:32 | Emergency (ER) | payer MEDICAID ==
[2017-05-07 09:47] VITALS: BP 119/48
--- NOTE | 2017-05-07 10:12 | EDM.PDOC ---
ED HPI GENERAL MEDICAL PROBLEM - General Chief Complaint: Gastrointestinal Problem Stated Complaint: SICK SINCE THURSDAY;FEVER/HEADACHE Time Seen by Provider: 05/07/17 10:06 Source of Information: Reports: Patient History Limitations: Reports: No Limitations - History of Present Illness INITIAL COMMENTS - FREE TEXT/NARRATIVE: 51-year-old female with intermittent fevers, generalized malaise, diarrhea,, sore throat and cough over the past 3-4 days. Her has similar symptoms but not as bad. She is a nonsmoker. She is now developed a headache and just feels awful, has slept most of the last 3 days. She has "never been this sick". She did not get a flu vaccination. She's been taking Tylenol. Onset: Gradual (Over the past 3-4 days) Location: Reports: Generalized Quality: Reports: Ache Severity: Moderate Associated Symptoms: Reports: Cough, Fever/Chills, Headaches, Loss of Appetite, Malaise, Weakness, Other (Scratchy throat and diarrhea). 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: Reports: Acetaminophen Generalized Pain Score (Numeric/FACES): 9 - Related Data Allergies Allergy/AdvReac Type Severity Reaction Status Date / Time No Known Allergies Allergy Verified 05/07/17 09:51 Home Meds: Home Meds Varenicline [Chantix] 1 tab PO BID 05/11/16 [History] Acetaminophen [Tylenol] 650 mg PO Q4H PRN #0 tablet 08/20/16 [Rx] Past Medical History - Past Health History Medical/Surgical History: Denies Medical/Surgical History HEENT History: Reports: Allergic Rhinitis, Impaired Vision Cardiovascular History: Reports: None Respiratory History: Reports: Bronchitis, Recurrent Gastrointestinal History: Reports: Bowel Obstruction, Other (See Below) Other Gastrointestinal History: right inguinal hernia Hematoma removed from groin Hernia surgery x8. 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: Dysfunctional Uterine Bleeding, Endometriosis, Fibroids , , Spontaneous Other OB/BYN History: "tumor in uterus" Musculoskeletal History: Reports: Fracture Neurological History: Reports: None Psychiatric History: Reports: Anxiety, Panic Attack Endocrine/Metabolic History: Reports: None Hematologic History: Reports: None Immunologic History: Reports: None Oncologic (Cancer) History: Reports: None Dermatologic History: Reports: None - Infectious Disease History Infectious Disease History: Reports: Mumps - Past Surgical History HEENT Surgical History: Reports: Tonsillectomy GI Surgical History: Reports: Hernia, Inguinal, Hernia Repair/Other Female Surgical History: Reports: Section, Hysterectomy, Salpingo- Oophorectomy, Tubal Ligation Musculoskeletal Surgical History: Reports: Other (See Below) Other Musculoskeletal Surgeries/Procedures:: ankle fracture with pins placed Social & Family History - Family History Family Medical History: Noncontributory HEENT: Reports: Impaired Vision Cardiac: Reports: Heart Failure Respiratory: Reports: COPD GI: Reports: None : Reports: None OBGYN: Reports: None Musculoskeletal: Reports: Fibromyalgia Neurological: Reports: None Psychiatric: Reports: Anxiety, Depression, Panic Attack Endocrine/Metabolic: Reports: Diabetes, type II Hematologic: Reports: None Immunologic: Reports: None Dermatologic: Reports: None Oncologic: Reports: Ovarian - Tobacco Use Smoking Status *Q: Former Smoker Years of Tobacco use: 30 Packs/Tins Daily: 0.2 Used Tobacco, but Quit: Yes Month Tobacco Last Used: 2 weeks ago Second Hand Smoke Exposure: No - Caffeine Use Caffeine Use: Reports: Coffee Other Caffeine Use: 6 cups a day - Alcohol Use Days Per Week of Alcohol Use: 1 Number of Drinks Per Day: 1 Total Drinks Per Week: 1 - Recreational Drug Use Recreational Drug Use: No ED ROS GENERAL - Review of Systems Review Of Systems: See Below Constitutional: Reports: Fever, Chills, Malaise, Fatigue, Decreased Appetite HEENT: Reports: Throat Pain Respiratory: Reports: Cough. Denies: Shortness of Breath, Sputum Cardiovascular: Denies: Chest Pain GI/Abdominal: Reports: Diarrhea, Nausea. Denies: Abdominal Pain, Vomiting : Reports: No Symptoms Musculoskeletal: Reports: Muscle Pain (Aches all over) Skin: Denies: Rash Neurological: Reports: Headache Psychiatric: Reports: No Symptoms ED EXAM, GENERAL - Physical Exam Exam: See Below Exam Limited By: No Limitations General Appearance: Alert, No Apparent Distress (Looks uncomfortable but not distressed) Eye Exam: Bilateral Eye: Normal Inspection Throat/Mouth: Normal Inspection Head: Atraumatic Respiratory/Chest: No Respiratory Distress, Wheezing (Patient has a few expiratory wheezes, especially on the right side) Cardiovascular: Regular Rate, Rhythm, No Murmur GI/Abdominal: Non-Tender Extremities: No: Pedal Edema Neurological: Alert, Oriented Skin Exam: Warm, Dry Course - Vital Signs Last Recorded V/S: Last Vital Signs Temp 101.3 F H 05/07/17 10:35 Pulse 101 H 05/07/17 09:48 Resp 16 05/07/17 09:48 BP 119/48 L 05/07/17 09:48 Pulse Ox 90 L 05/07/17 09:48 - Orders/Labs/Meds Orders: Active Orders 24 hr Category Date Time Status CULTURE STREP A CONFIRMATION [RM] Routine Lab 05/07/17 10:21 Results STREP SCRN A RAPID W CULT CONF [RM] Routine Lab 05/07/17 10:21 Results Labs: Laboratory Tests 05/07/17 05/07/17 Range/Units 10:13 10:22 WBC 7.3 (4.5-11.0) K/uL RBC 5.30 (3.30-5.50) M/uL Hgb 16.2 H (12.0-15.0) g/dL Hct 48.1 H (36.0-48.0) % MCV 91 (80-98) fL MCH 31 (27-31) pg MCHC 34 (32-36) % Plt Count 90 L (150-400) K/uL Neut % (Auto) 83 H (36-66) % Lymph % (Auto) 10 L (24-44) % Crisp % (Auto) 7 H (2-6) % Eos % (Auto) 0 L (2-4) % Baso % (Auto) 0 (0-1) % Sodium 139 L (140-148) mmol/L Potassium 3.9 (3.6-5.2) mmol/L Chloride 103 (100-108) mmol/L Carbon Dioxide 23 (21-32) mmol/L Anion Gap 16.9 H (5.0-14.0) mmol/L BUN 16 (7-18) mg/dL Creatinine 0.8 (0.6-1.0) mg/dL Est Cr Clr Drug Dosing 74.02 mL/min Estimated GFR (MDRD) > 60 (>60) Glucose 109 H (74-106) mg/dL Calcium 8.8 (8.5-10.1) mg/dL Total Bilirubin 0.3 (0.2-1.0) mg/dL AST 39 H (15-37) U/L ALT 42 (12-78) U/L Alkaline Phosphatase 99 (46-116) U/L Total Protein 7.4 (6.4-8.2) g/dL Albumin 3.6 (3.4-5.0) g/dL Globulin 3.8 H (2.3-3.5) g/dL Albumin/Globulin Ratio 1.0 L (1.2-2.2) Meds: Medications Discontinued Medications Generic Name Dose Route Start Last Admin Trade Name Jeovanny PRN Reason Stop Dose Admin Sodium Chloride 1,000 mls @ 1,000 mls/hr 05/07/17 10:15 05/07/17 10:30 Normal Saline IV 1,000 mls/hr ASDIRECTED SHILO Administration Ketorolac Tromethamine 30 mg 05/07/17 10:13 05/07/17 10:31 Toradol IVPUSH 05/07/17 10:14 30 mg ONETIME ONE Administration - Re-Assessments/Exams Free Text/Narrative Re-Assessment/Exam: 05/07/17 10:17 A rapid strep, influenza antigens, CBC and CMP were obtained. Patient was given 1 L of normal saline along with 30 of Toradol IV. 05/07/17 10:51 Rapid strep was negative, influenza was positive for influenza B. CBC and CMP were relatively normal. After the patient was given 1 L of normal saline and IV Toradol, she was encouraged to continue with fluids and take a regular dose of anti-inflammatories for headache and muscle pain. She can return if not improving satisfactorily. Departure - Departure Time of Disposition: 12:00 Disposition: Home, Self-Care 01 Condition: Good Clinical Impression: Influenza B - Discharge Information Instructions: Influenza, Adult, [id number] Referrals: Tristian Simmons Sr, MD [Primary Care Provider] - Forms: ED Department Discharge Care Plan Goals: Take a regular dose of ibuprofen or naproxen, rest and fluids and you should start improving soon. Consider rechecking in 3-4 days if not improving satisfactorily or return anytime if worsening or you develop other concerns. - My Orders Last 24 Hours: My Active Orders 05/07/17 10:21 CULTURE STREP A CONFIRMATION [] Routine STREP SCRN A RAPID W CULT CONF [RM] Routine - Assessment/Plan Last 24 Hours: My Active Orders 05/07/17 10:21 CULTURE STREP A CONFIRMATION [RM] Routine STREP SCRN A RAPID W CULT CONF [RM] Routine
[2017-05-07] MEDS ORDERED: Ketorolac 30 MG/ML SDV IVPUSH ONE (10:13)
[2017-05-07] MEDS ORDERED: Sodium Chloride 0.9% 1,000 ML IV SCH (10:15)
== END 2017-05-07 10:35 | disposition home or self-care (01) ==
LOC: JP.ED 09:32
DX: J10.1 Influenza due to other identified influenza virus with other respiratory manifestations (principal); Z87.891 Personal history of nicotine dependence
CPT/HCPCS: 36415; 80053; 85025; 87081; 87430; 87804; 96361; 96374; 99283; J1885; J7040

== ENCOUNTER 2017-05-26 09:49 | Inpatient (IN) | payer MEDICAID ==
[~2017-05-26 09:49] MED LIST changes: +Dexamethasone 4 MG/ML SDV ONE; +Glycopyrrolate 0.2 MG/ML 5 ML MDV ONE; +Neostigmine Methylsulfate 1 MG/ML 5 ML Syringe ONE; +Ondansetron 4 MG/2 ML SDV ONE; +Propofol 200 MG/20 ML SDV ONE; +Rocuronium 50 MG/5 ML Vial ONE; -ceFAZolin 2 GM in Sodium Chloride 0.9% 100 ML IV ONE; -ceFAZolin 2 GM in Sodium Chloride 0.9% 50 ML IV ONE; +fentaNYL 250 MCG/5 ML SDV ONE
[2017-05-26] MEDS ORDERED: Celecoxib 200 MG Cap PO ONE (10:15)
[2017-05-26] MEDS ORDERED: Acetaminophen 500 MG Tab PO ONE (10:15)
[2017-05-26] MEDS ORDERED: Dextrose 5%-Lactated Ringers 1,000 ML IV SCH ×2 (10:45→16:30)
[2017-05-26] MEDS ORDERED: Ketamine 500 MG/5 ML MDV IV ONE ×2 (11:30)
[2017-05-26] MEDS ORDERED: ceFAZolin 2 GM in Premix Bag 1 BAG IV ONE ×2 (11:30)
[2017-05-26] MEDS ORDERED: Lidocaine 2% 100 MG/5 ML Syringe IVPUSH ONE (11:30)
[2017-05-26] MEDS ORDERED: Bupivacaine 0.5%/EPINEPHrine 1:200,000 50 ML MDV ONE (12:51)
[2017-05-26] MEDS ORDERED: fentaNYL 250 MCG/5 ML SDV ONE (14:21)
[2017-05-26] MEDS ORDERED: Linezolid 200 MG/100 ML Bag IRR ONE (14:32)
[2017-05-26] MEDS ORDERED: Meropenem 500 MG SDV ONE (14:47)
[2017-05-26] MEDS ORDERED: Sodium Chloride 0.9% 10 ML ONE (14:47)
[2017-05-26] MEDS ORDERED: Meropenem 500 MG SDV IRR ONE (14:56)
[2017-05-26] MEDS ORDERED: Naloxone 0.4 MG/ML SDV IVPUSH PRN (15:08)
[2017-05-26] MEDS ORDERED: HYDROmorphone/Normal Saline 15 MG/30 ML PCA IV PRN (15:08)
[2017-05-26] MEDS ORDERED: Cyclobenzaprine 10 MG Tab PO PRN (16:30)
[2017-05-26] MEDS: Lidocaine 0.4%/D5W 2 GM/500 ML BAG IV SCH (17:19)
[2017-05-26] MEDS ORDERED: Naloxone 0.4 MG/ML SDV IV PRN (19:47)
[2017-05-26] MEDS: Meperidine 300 MG/30 ML PCA Vial IV PRN (20:28)
[2017-05-26] MEDS: ceFAZolin 2 GM in Sodium Chloride 0.9% 50 ML IV SCH (22:42)
[2017-05-26] MEDS: diphenhydrAMINE 50 MG/ML SDV IVPUSH PRN (23:09)
[2017-05-27] MEDS: Lidocaine 0.4%/D5W 2 GM/500 ML BAG IV SCH (03:30)
[2017-05-27] MEDS: ceFAZolin 2 GM in Sodium Chloride 0.9% 50 ML IV SCH ×3 (06:23→22:08)
[2017-05-27] MEDS: Bisacodyl 5 MG Tab PO SCH ×2 (09:32→20:47)
[2017-05-27] MEDS: Celecoxib 200 MG Cap PO SCH (09:32)
[2017-05-27] MEDS: Meperidine 300 MG/30 ML PCA Vial IV PRN (09:33)
[2017-05-27] MEDS: Dextrose 5%-Lactated Ringers 1,000 ML IV SCH ×2 (09:39→20:51)
--- NOTE | 2017-05-27 10:54 | PN ---
DATE OF SERVICE: 05/27/2017 SUBJECTIVE: Darlene is postop day 1. She has a Davis catheter in due to adhesions that were taken down on the bladder. Surrounding the bladder, she has AGENT CONTRACT CLERK, lidocaine was discontinued due to hallucination. Davis catheter is in and she has had 2050 mL out and oral intake was 820. REVIEW OF SYSTEMS: Remainder of review of systems negative for any pertinent positives and negatives. OBJECTIVE: GENERAL: Darlene is a 51-year-old female. She is alert and orientated. States her pain is controlled. VITAL SIGNS: TPR 97.9, 73, and 16. Blood pressure 122/61. HEENT: Negative. NECK: Supple. HEART: Regular rate and rhythm. LUNGS: Clear. ABDOMEN: Dressings dry and intact. Abdominal binder is on. Davis in place. EXTREMITIES: Without peripheral edema. ASSESSMENT: Right lower quadrant exploration with repair of recurrent incarcerated inguinal hernia, partial removal of intraperitoneal mesh for recurrent incarcerated incisional hernia associated with detached intraperitoneal mesh on 05/26/2017. PLAN: 1. Leave Davis catheter in for adhesion takedown on bladder. 2. Decrease IV 200 mL per hour. 3. Dulcolax 2 tabs b.i.d., discontinue when having a bowel movement. 4. Continue AGENT CONTRACT CLERK. 5. Regular diet. 6. Dressing off. May shower. 7. We will re-evaluate p.r.n. or in a.m. Consuelo Varela PA-C /[id number]
[2017-05-27] MEDS: Ondansetron 4 MG/2 ML SDV IV PRN (18:15)
[2017-05-27] MEDS: diphenhydrAMINE 50 MG/ML SDV IVPUSH PRN (22:38)
[2017-05-28] MEDS: Meperidine 300 MG/30 ML PCA Vial IV PRN (01:07)
[2017-05-28] MEDS: ceFAZolin 2 GM in Sodium Chloride 0.9% 50 ML IV SCH (05:31)
[2017-05-28] MEDS: Ondansetron 4 MG/2 ML SDV IV PRN (05:33)
[2017-05-28] MEDS ORDERED: Acetaminophen/oxyCODONE 325-5 MG Tab PO PRN (07:25)
[2017-05-28 07:36] VITALS: BP 132/49
[2017-05-28] MEDS: Celecoxib 200 MG Cap PO SCH (08:30)
--- NOTE | 2017-05-29 04:35 | DISCH ---
ADMISSION DIAGNOSES: 1. Hernia of abdominal wall. 2. Benign hypertension. 3. Recurrent inguinal hernia on the right. 4. Chronic pain. 5. Recent smoking history. 6. Narcotic dependence. DISCHARGE DIAGNOSES: 1. Right lower inguinal and abdominal exploration with repair of recurrent incarcerated inguinal hernia. 2. Partial removal of intraperitoneal mesh. 3. Repair of probable nerve entrapment in the area of adjacent mesh for recurrent incarcerated incisional hernia associated with detached intraperitoneal mesh from Addy's ligament and mediastinal pelvic wall and possible entrapment at site of mesh prolapse. Date of surgery 05/26/2017. HISTORY: Darlene Saavedra is a 51-year-old female with chronic pain in her right inguinal area after preoperative evaluation and discussion of possible risks and possible complications, she wished to proceed with surgical procedure. HOSPITAL COURSE: Darlene had her surgery on 05/26/2017. She had no operative complications. On postoperative day 1, she was started on her oral medications and a regular diet. Her Davis catheter will be left in for the adhesion takedown on the bladder. She was given bowel stimulation. On postoperative day 2, her vital signs were stable. Her activity was good. Her pain was well managed and she was having bowel movements. She was able to be discharged to home with her Davis catheter. OBJECTIVE: GENERAL: Darlene Saavedra is a 51-year-old female. VITAL SIGNS: Height 5 feet 5 inches. Weight is 163 pounds. TPR 96.3, 78, 16. Blood pressure 132/49. HEENT: Negative. NECK: Supple. HEART: Regular rate and rhythm. LUNGS: Clear. ABDOMEN: Incision looks good. Abdominal binder is on. EXTREMITIES: Without peripheral edema. DISPOSITION: Discharged to home. CONDITION: Stable and improving. FOLLOWUP: Follow up with Av Cobian MD on 06/03/2017 at 8 a.m. MEDICATIONS: New Prescriptions: 1. Percocet 5/325 mg one to two oral every 4 hours p.r.n. pain #50. 2. Zofran ODT 4 mg q.6 hours p.r.n. nausea. 3. She is to resume her home medications. DISCHARGE DIET: Diet after discharge, usual diet as tolerated. Drink 8 to 10 glasses of water a day. ACTIVITY: As tolerated. No lifting greater than 10 pounds for 6 weeks[address] Driving, do not drive while on pain medication. Shower/bathing, may shower. Notify provider if any fever, increased pain, nausea, or vomiting. Keep site clean and dry. Wear abdominal binder for 6 weeks and then as tolerated. Special instruction, use incentive spirometer 10 times every hour while awake for 2 weeks.
--- NOTE | 2017-06-01 09:03 | OR ---
DATE OF PROCEDURE: 05/26/2017 PREOPERATIVE DIAGNOSIS: Recurrent incarcerated right inguinal hernia. POSTOPERATIVE DIAGNOSES: 1. Recurrent incarcerated right inguinal hernia associated with detachment of the intraperitoneal mesh from Addy ligament and more lateral pelvic wall. 2. Possible nerve entrapment at the site of mesh prolapse. OPERATIVE PROCEDURES: Right groin and abdominal exploration with; 1. Repair of recurrent incarcerated right inguinal hernia (18811). 2. Partial removal of intraperitoneal mesh (79237). 3. Removal of probable area of nerve entrapment within scar adjacent to mesh ([id number]). ANESTHESIA: General. INDICATION FOR PROCEDURE: The patient presents with a complex recurrent right inguinal hernia after multiple previous repairs. She was initially referred to [facility], but they turned out to be out of network, requiring additional expenses for the patient if the repair was to be done there. The patient wishes to have an attempt at re-repair of this hernia. She is aware that there is a quite high risk of recurrence as well as potential other complications such as bleeding, infection, chronic pain following the procedure, injury to underlying viscera, and she wishes to proceed. DETAILS OF PROCEDURE: The patient was taken to the operating room and placed in a supine position. After general endotracheal anesthesia was induced, a Davis catheter was inserted, and the abdomen including the inguinal area were prepped and draped. The previous right anal incision was then reused and carried down through the skin and subcutaneous tissue. This incision then continued down through an area of thinned out tissue containing some mesh. The mesh was incised. The patient was noted to have some incarcerated omentum as well as some loops of small bowel present within the area of hernia. These were dissected free and no evident problems with the small bowel were noted. Immediately, there was some adherence to the urinary bladder. This was dissected off where the bladder appeared to be fairly thin, but no cystotomy was evident. The bladder wall at that point was reinforced with a [id number] stitch of 0 Vicryl stitch placed in the seromuscular layers of the bladder. During the course of dissection, a seroma located laterally, where the patient was rather exquisitely tender was evacuated. This did not appear to be infected, but cultures were obtained. In that area, there appeared to be some dense scar formation and what appeared to be a small degree of nerve entering into that area was noted, and that area of scar which would include the area of the nerve was then excised and sent as a separate specimen. At this point, it appeared evident that the patient's laparoscopically placed mesh had pulled away from the area of the Addy ligament medially and from the pelvic sidewall laterally. At this point, the mesh was somewhat redundant and a portion of this intraperitoneal mesh was then excised. Reconstruction was then accomplished in 3 layers. The superior edge of the mesh was at that point approximated to Addy ligament beginning through the level of the pubic tubercle with a running 0 Prolene stitch. A transition stitch was then made at more superficial tissues just below the inguinal ligament for the entire length of the defect. A second stitch using 0 Prolene as well was then made between the mesh along the remaining inferior aspect of the incision. This was brought up to what would be the conjoint tendon, again with a running 0 Prolene stitch. Finally, the layer that would be more or less the external oblique aponeurosis was essentially one layer with the conjoint tendon. The previous levator stitches had been placed somewhat posterior and the final layer then was between the area of the external oblique aponeurosis affixed to the underlying conjoint tendon to the corresponding layer inferiorly with this being done with an 0 Vicryl stitch, the latter being used to try to minimize the chances of stitch abscess in the more superficial layer. Throughout the procedure, the area was irrigated with meropenem and Zyvox-containing saline solution. Following this, the subcutaneous tissue was approximated with 2 layers of 3-0 Vicryl stitch, and the skin with debra. A dressing was applied. The patient was taken to the recovery room in a satisfactory condition. There were no evident complications. Av Cobian MD /[id number]
== END 2017-05-28 09:45 | disposition home or self-care (01) | DRG 346 ==
LOC: JP.SDS 09:49 → JP.SDSSCHI 09:49 → EDSTATUS 12:00 → JP.2SS 15:45
PROVIDERS: ADMIT Surgery; ATTEND Surgery
PROC: 0YQ50ZZ Repair Right Inguinal Region, Open Approach (ICD-10-PCS; principal; 2017-05-26)
PROC: 0TQB0ZZ Repair Bladder, Open Approach (ICD-10-PCS; 2017-05-26)
PROC: 0D9W0ZX Drainage of Peritoneum, Open Approach, Diagnostic (ICD-10-PCS; 2017-05-26)
PROC: 0WPF0JZ Removal of Synthetic Substitute from Abdominal Wall, Open Approach (ICD-10-PCS; 2017-05-26)
DX: K40.31 Unilateral inguinal hernia, with obstruction, without gangrene, recurrent (principal); K40.90 Unilateral inguinal hernia, without obstruction or gangrene, not specified as recurrent; K66.0 Peritoneal adhesions (postprocedural) (postinfection); I10 Essential (primary) hypertension; F17.210 Nicotine dependence, cigarettes, uncomplicated; R44.1 Visual hallucinations; T41.3X5A Adverse effect of local anesthetics, initial encounter; Y92.230 Patient room in hospital as the place of occurrence of the external cause; Z90.710 Acquired absence of both cervix and uterus; Z90.722 Acquired absence of ovaries, bilateral; Z90.79 Acquired absence of other genital organ(s); G57.81 Other specified mononeuropathies of right lower limb
CPT/HCPCS: 87070; 87075; 87205; 88302; 94762; A9270-GY; J0131; J0690; J1100; J1170; J1200; J2001; J2020; J2175; J2185; J2405; J2704; J2710; J3010; J7030; J7042; J7050

== ENCOUNTER 2018-03-13 20:20 | Emergency (ER) | payer MEDICAID ==
[2018-03-13] MEDS ORDERED: HYDROmorphone 0.5 MG/0.5 ML Syringe IVPUSH ONE (21:04)
[2018-03-13] MEDS ORDERED: Albuterol/Ipratropium 3.0-0.5 MG/3 ML Neb Soln NEB ONE (21:04)
[2018-03-13] MEDS ORDERED: Sodium Chloride 0.9% 10 ML Syringe FLUSH PRN (21:04)
--- NOTE | 2018-03-13 21:05 | EDM.PDOC ---
ED HPI GENERAL MEDICAL PROBLEM - General Chief Complaint: Respiratory Problem Stated Complaint: COLD Time Seen by Provider: 03/13/18 20:45 Source of Information: Reports: Patient, RN Notes Reviewed History Limitations: Reports: No Limitations - History of Present Illness INITIAL COMMENTS - FREE TEXT/NARRATIVE: Darlene presents today for complaints of cough, SOB, chills, headache for three days. - Related Data Allergies Allergy/AdvReac Type Severity Reaction Status Date / Time latex Allergy Rash Verified 12/01/17 09:44 Home Meds: Home Meds Acetaminophen/oxyCODONE [Percocet 325-5 MG] 1 - 2 tab PO Q4H PRN #40 tablet [Rx] Past Medical History - Past Health History Medical/Surgical History: Denies Medical/Surgical History HEENT History: Reports: Allergic Rhinitis, Impaired Vision Other HEENT History: wears glasses Cardiovascular History: Reports: None Respiratory History: Reports: Bronchitis, Recurrent Gastrointestinal History: Reports: Bowel Obstruction, Cholelithiasis, Other ( See Below) Other Gastrointestinal History: right inguinal hernia Hematoma removed from groin Hernia surgery x8. 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" Musculoskeletal History: Reports: Fibromyalgia Neurological History: Reports: None Psychiatric History: Reports: Anxiety, Panic Attack Endocrine/Metabolic History: Reports: None Hematologic History: Reports: None Immunologic History: Reports: None Oncologic (Cancer) History: Reports: None Dermatologic History: Reports: None - Infectious Disease History Infectious Disease History: Reports: Mumps - Past Surgical History HEENT Surgical History: Reports: Tonsillectomy GI Surgical History: Reports: Cholecystectomy, Hernia, Inguinal, Hernia Repair/ Other Female Surgical History: Reports: Section, D&C, Hysterectomy, Salpingo-Oophorectomy, Tubal Ligation Neurological Surgical History: Reports: None Musculoskeletal Surgical History: Reports: Other (See Below) Other Musculoskeletal Surgeries/Procedures:: ankle fracture with pins placed ulnar nerve left Dermatological Surgical History: Reports: Skin Biopsy Social & Family History - Family History Family Medical History: Noncontributory HEENT: Reports: Impaired Vision Cardiac: Reports: Heart Failure Respiratory: Reports: COPD GI: Reports: None : Reports: None OBGYN: Reports: None Musculoskeletal: Reports: Fibromyalgia Neurological: Reports: None Psychiatric: Reports: Anxiety, Depression, Panic Attack Endocrine/Metabolic: Reports: Diabetes, type II Hematologic: Reports: None Immunologic: Reports: None Dermatologic: Reports: None Oncologic: Reports: Ovarian - Tobacco Use Smoking Status *Q: Never Smoker Second Hand Smoke Exposure: No - Caffeine Use Caffeine Use: Reports: Coffee Other Caffeine Use: 6 cups a day - Recreational Drug Use Recreational Drug Use: No ED ROS GENERAL - Review of Systems Review Of Systems: See Below Constitutional: Reports: Chills, Malaise. Denies: Fever, Weakness HEENT: Reports: Ear Pain, Other (sinus congestion, feeling of fullness to bilateral ears. ) Respiratory: Reports: Shortness of Breath, Wheezing, Cough. Denies: Pleuritic Chest Pain, Sputum, Hemoptysis Cardiovascular: Denies: Chest Pain, Blood Pressure Problem, Dyspnea on Exertion , Edema, Lightheadedness, Palpitations, PND, Syncope Endocrine: Reports: No Symptoms GI/Abdominal: Reports: Abdominal Pain, Other (she complains of abdominal pain to site of hernia) : Reports: No Symptoms Musculoskeletal: Reports: No Symptoms Skin: Reports: No Symptoms Neurological: Reports: No Symptoms Psychiatric: Reports: No Symptoms Hematologic/Lymphatic: Reports: No Symptoms Immunologic: Reports: No Symptoms ED EXAM, GENERAL - Physical Exam Exam: See Below Free Text/Narrative:: Darlene is an alert and oriented 52 year old female presenting with complaints of cough, chills, headache and sinus congestion for 3 days. She reports she initially became ill with dizziness and a cough 5 days ago, it seemed to improve then worsening 3 days ago. She takes percocet for hernia. She denies use of tobacco. Primary provider Dr. Simmons. Exam Limited By: No Limitations General Appearance: Alert, WD/WN, Mild Distress Eye Exam: Bilateral Eye: EOMI, Normal Inspection Ears: Normal External Exam, Normal Canal, Hearing Grossly Normal, Normal TMs Ear Exam: Bilateral Ear: Auricle Normal, Canal Normal, TM normal Nose: Normal Inspection, Normal Mucosa Throat/Mouth: Normal Inspection, Normal Lips, Normal Gums, No Airway Compromise , Other (Hoarse voice, slight erythema to oropharynx) Head: Atraumatic, Normocephalic, Facial Tenderness, Sinus Tenderness Neck: Normal Inspection, Supple, Non-Tender, Full Range of Motion. No: Lymphadenopathy (R), Lymphadenopathy (L) Respiratory/Chest: No Respiratory Distress, No Accessory Muscle Use, Rales, Rhonchi, Wheezing Cardiovascular: Normal Peripheral Pulses, Regular Rate, Rhythm, No Edema, No Murmur Peripheral Pulses: 2+: Radial (L), Radial (R) GI/Abdominal: Normal Bowel Sounds, Soft, No Organomegaly, No Distention, No Mass , Other (Tenderness to right inguinal area at site of multiple hernia repairs. No evidence of incarcerated hernia) Back Exam: Normal Inspection, Full Range of Motion. No: CVA Tenderness (R), CVA Tenderness (L) Extremities: Normal Inspection, Normal Range of Motion, Non-Tender, No Pedal Edema, Normal Capillary Refill Neurological: Alert, Oriented, CN II-XII Intact, Normal Cognition, Normal Gait, No Motor/Sensory Deficits Psychiatric: Normal Affect, Normal Mood Skin Exam: Warm, Dry, Intact, Normal Color, No Rash Lymphatic: No Adenopathy Course - Vital Signs Last Recorded V/S: Last Vital Signs Temp 36.4 C 03/13/18 22:25 Pulse 78 03/13/18 22:25 Resp 20 03/13/18 22:25 BP 163/81 H 03/13/18 22:25 Pulse Ox 96 03/13/18 22:25 - Orders/Labs/Meds Orders: Active Orders 24 hr Category Date Time Status RT Aerosol Therapy [RC] ASDIRECTED Care 03/13/18 21:04 Active Chest 2V [CR] Stat Exams 03/13/18 21:04 Taken Lactated Ringers [Ringers, Lactated] 1,000 ml Med 03/13/18 21:45 Active IV ASDIRECTED Sodium Chloride 0.9% [Saline Flush] Med 03/13/18 21:04 Active 10 ml FLUSH ASDIRECTED PRN Saline Lock Insert [OM.PC] Routine Oth 03/13/18 21:04 Ordered Medication Orders Lactated Ringer's (Ringers, Lactated) 1,000 mls @ 1,000 mls/hr IV ASDIRECTED SHILO Last Admin: 03/13/18 21:45 Dose: 1,000 mls/hr Sodium Chloride (Saline Flush) 10 ml FLUSH ASDIRECTED PRN PRN Reason: Keep Vein Open Last Admin: 03/13/18 21:32 Dose: 10 ml Labs: Laboratory Tests 03/13/18 03/13/18 Range/Units 21:15 21:15 WBC 12.0 H (4.5-11.0) K/uL RBC 5.38 (3.30-5.50) M/uL Hgb 16.5 H (12.0-15.0) g/dL Hct 48.8 H (36.0-48.0) % MCV 91 (80-98) fL MCH 31 (27-31) pg MCHC 34 (32-36) % Plt Count 148 L (150-400) K/uL Neut % (Auto) 61 (36-66) % Lymph % (Auto) 30 (24-44) % Sutter % (Auto) 8 H (2-6) % Eos % (Auto) 1 L (2-4) % Baso % (Auto) 0 (0-1) % Sodium 142 (140-148) mmol/L Potassium 3.9 (3.6-5.2) mmol/L Chloride 105 (100-108) mmol/L Carbon Dioxide 26 (21-32) mmol/L Anion Gap 10.8 (5.0-14.0) mmol/L BUN 10 (7-18) mg/dL Creatinine 0.8 (0.6-1.0) mg/dL Est Cr Clr Drug Dosing 73.18 mL/min Estimated GFR (MDRD) > 60 (>60) Glucose 98 (74-106) mg/dL Calcium 9.0 (8.5-10.1) mg/dL Total Bilirubin 0.2 (0.2-1.0) mg/dL AST 27 (15-37) U/L ALT 31 (12-78) U/L Alkaline Phosphatase 91 (46-116) U/L C-Reactive Protein 0.61 H (0.0-0.3) mg/dL Total Protein 8.1 (6.4-8.2) g/dL Albumin 4.2 (3.4-5.0) g/dL Globulin 3.9 H (2.3-3.5) g/dL Albumin/Globulin Ratio 1.1 L (1.2-2.2) influenza screen negative. Patient lab work reviewed, chest x-ray reviewed with Dr. Gonzalez. Dr. Cobian notified of patient hernia site pain, assessment. Darlene can follow up with him in the clinic in 7 to 14 days. Splint site if pain with coughing. Patient will be discharged to home. Meds: Medications Generic Name Dose Route Start Last Admin Trade Name Freq PRN Reason Stop Dose Admin Lactated Ringer's 1,000 mls @ 1,000 mls/hr 03/13/18 21:45 03/13/18 21:45 Ringers, Lactated IV 1,000 mls/hr ASDIRECTED SHILO Administration Sodium Chloride 10 ml 03/13/18 21:04 03/13/18 21:32 Saline Flush FLUSH 10 ml ASDIRECTED PRN Administration Keep Vein Open Discontinued Medications Generic Name Dose Route Start Last Admin Trade Name Freq PRN Reason Stop Dose Admin Albuterol/Ipratropium 3 ml 03/13/18 21:04 03/13/18 21:14 Duoneb 3.0-0.5 Mg/3 Ml NEB 03/13/18 21:05 3 ml ONETIME ONE Administration Benzonatate 100 mg 03/13/18 22:05 03/13/18 22:15 Tessalon Perles PO 03/13/18 22:06 100 mg ONETIME ONE Administration Guaifenesin/Codeine Phosphate 10 ml 03/13/18 22:05 03/13/18 22:15 Robitussin Ac PO 03/13/18 22:06 10 ml ONETIME ONE Administration Hydromorphone HCl 0.5 mg 03/13/18 21:04 03/13/18 21:29 Dilaudid IVPUSH 03/13/18 21:05 0.5 mg ONETIME ONE Administration Ketorolac Tromethamine 30 mg 03/13/18 22:05 03/13/18 22:15 Toradol IVPUSH 03/13/18 22:06 30 mg ONETIME ONE Administration - Radiology Interpretation Free Text/Narrative:: chest x-ray wet read, no acute findings. - Re-Assessments/Exams Free Text/Narrative Re-Assessment/Exam: 03/13/18 22:00 Dr. Cobian notified of patient hernia site pain, assessment. Darlene can follow up with him in the clinic in 7 to 14 days. Splint site if pain with coughing. 03/13/18 22:34 Darlene reports improvement of headache, states she feels better. She will be discharged after IV fluids completed. She is in agreement with plan. Departure - Departure Time of Disposition: 22:34 Disposition: Home, Self-Care 01 Condition: Good Clinical Impression: Acute bronchitis, Sinusitis, acute, Status post hernia repair - Discharge Information *PRESCRIPTION DRUG MONITORING PROGRAM REVIEWED*: No *COPY OF PRESCRIPTION DRUG MONITORING REPORT IN PATIENT ELIEZER: No Referrals: Tristian Simmons Sr, MD [Primary Care Provider] - Forms: ED Department Discharge Additional Instructions: You have been evaluated and treated for acute bronchitis, cough and right inguinal pain. Use: Prednisone 40mg by mouth daily for 5 days. Albuterol inhaler, 1 to 2 puffs every 4 to 6 hours as needed. Doxycycline 100mg by mouth twice per day for 14 days. Benzonatate 100mg capsule by mouth three times a day as needed for cough. Robitussin-AC 10ml by mouth every 4 tl 6 hours as needed for cough. Take ibuprofen 600 to 800 mg by mouth as needed for pain. Take acetaminophen as needed for pain Take miralax twice per day for constipation. Keep hydrated by drinking plenty of water/gatorade. Use of tea with honey can help to sooth the throat and cough. Follow up with your primary provider in 3 days for a recheck of bronchitis. Follow up with Dr. Cobian in 7 to 14 days for inguinal pain. Return for worsening, issues or concerns. - My Orders Last 24 Hours: My Active Orders 03/13/18 21:04 RT Aerosol Therapy [RC] ASDIRECTED Chest 2V [CR] Stat Sodium Chloride 0.9% [Saline Flush] 10 ml FLUSH ASDIRECTED PRN Saline Lock Insert [OM.PC] Routine 03/13/18 21:45 Lactated Ringers [Ringers, Lactated] 1,000 ml IV ASDIRECTED - Assessment/Plan Last 24 Hours: My Active Orders 03/13/18 21:04 RT Aerosol Therapy [RC] ASDIRECTED Chest 2V [CR] Stat Sodium Chloride 0.9% [Saline Flush] 10 ml FLUSH ASDIRECTED PRN Saline Lock Insert [OM.PC] Routine 03/13/18 21:45 Lactated Ringers [Ringers, Lactated] 1,000 ml IV ASDIRECTED Assessment:: Acute bronchitis, Sinusitis, acute, status post hernia repair Plan: Patient evaluated and treated for acute bronchitis, cough and right inguinal pain. Use: Prednisone 40mg by mouth daily for 5 days. Albuterol inhaler, 1 to 2 puffs every 4 to 6 hours as needed. Doxycycline 100mg by mouth twice per day for 14 days. Benzonatate 100mg capsule by mouth three times a day as needed for cough. Robitussin-AC 10ml by mouth every 4 to 6 hours as needed for cough. Take ibuprofen 600 to 800 mg by mouth as needed for pain. Take acetaminophen as needed for pain Take miralax twice per day for constipation. Keep hydrated by drinking plenty of water/gatorade. Use of tea with honey can help to sooth the throat and cough. Follow up with primary provider in 3 days for a recheck of bronchitis. Follow up with Dr. Cobian in 7 to 14 days for inguinal pain. Return for worsening, issues or concerns.
[2018-03-13] MEDS ORDERED: Lactated Ringers 1,000 ML IV SCH (21:45)
[2018-03-13] MEDS ORDERED: Benzonatate 100 MG Cap PO ONE (22:05)
[2018-03-13] MEDS ORDERED: Ketorolac 30 MG/ML SDV IVPUSH ONE (22:05)
[2018-03-13] MEDS ORDERED: Codeine/guaiFENesin 100mg-10 MG/5 ML Syrup 10 ML Cup PO ONE (22:05)
[2018-03-13 22:53] VITALS: BP 142/78
--- NOTE | 2018-03-15 09:01 | CR ---
CHEST: 2 view CLINICAL HISTORY:Cough, SOB COMPARISON:2017 FINDINGS: The heart size, pulmonary vascular and hilar structures are normal. No infiltrate effusion or pneumothorax is seen. IMPRESSION: No acute cardiopulmonary process.
== END 2018-03-13 22:55 | disposition home or self-care (01) ==
LOC: JP.ED 20:20
DX: J20.9 Acute bronchitis, unspecified (principal); J01.90 Acute sinusitis, unspecified; Z98.890 Other specified postprocedural states; Z91.040 Latex allergy status
CPT/HCPCS: 36415; 71046; 80053; 85025; 86140; 87804; 94640; 96361; 96374; 96375; 99284; A9270; J1170; J1885; J7050; J7120; J7620-GY

== ENCOUNTER 2018-09-24 16:10 | Inpatient (IN) | payer MEDICARE, OTHER ==
[2018-09-24] MEDS ORDERED: hydrOXYzine HCl 100 MG/2 ML SDV IM PRN (16:17)
[2018-09-24] MEDS ORDERED: Naloxone 0.4 MG/ML SDV IV PRN (16:18)
[2018-09-24] MEDS: HYDROmorphone/Normal Saline 15 MG/30 ML PCA IV PRN (17:12)
[2018-09-24] MEDS: Dextrose 5%-Lactated Ringers 1,000 ML IV SCH (17:15)
[2018-09-24] MEDS: Ondansetron 4 MG/2 ML SDV IVPUSH PRN ×2 (17:21→22:00)
[2018-09-24] MEDS ORDERED: Iohexol 300 MG/ML 30 ML Bottle PO ONE (17:51)
[2018-09-24] MEDS ORDERED: Sodium Chloride 0.9% 10 ML Syringe FLUSH PRN (18:03)
[2018-09-24] MEDS ORDERED: Iopamidol 612 MG/ML 100 ML Bottle IV SCH (18:15)
[2018-09-24] MEDS ORDERED: Sodium Chloride 0.9% 80 ML IV SCH (18:15)
--- NOTE | 2018-09-24 20:17 | CRLCT ---
INDICATION: New suprapubic hernia. TECHNIQUE: CT abdomen and pelvis acquired with 100 cc Isovue-300 intravenous contrast. COMPARISON: Abdomen and pelvis CT 07/14/2018 FINDINGS: Lower chest: Basilar discoid atelectasis. Liver: Unremarkable. Normal in size and attenuation. No masses. Gallbladder and bile ducts: Status post cholecystectomy with mild intrahepatic biliary dilatation similar to the prior exam. Common duct is within normal limits for post cholecystectomy patient. Pancreas: Unremarkable. No mass or inflammation. Spleen: Unremarkable. Normal in size. No masses. Adrenal glands: Unremarkable. No nodules. Kidneys: Symmetric renal enhancement without hydronephrosis. Left renal hypodense lesion, probably a subcentimeter cyst, no change. GI tract: The stomach is unremarkable. There are no dilated loops of large or small intestine. Appendix is seen and is unremarkable. Vasculature: Atherosclerosis without abdominal aortic aneurysm. Lymph nodes: No lymphadenopathy. Omentum/Peritoneum/Abdominal Wall: The patient is status post ventral hernia repair with a mesh in the lower abdomen. There is some convexity in the suprapubic region at the region of the mesh although this does not appear significantly changed compared to the prior exam. Small fat containing ventral pelvic hernia left anterolateral to the mesh (3, 25; 2, 116) consistent with a spigelian hernia. Pelvis: Bladder unremarkable. Status post hysterectomy. Bones: Unremarkable for age. IMPRESSION: 1. Status post hernia repair with a ventral mesh at the pelvis. There is prominent convexity of the abdominal wall at this level although without a well-defined hernia around the mesh. Appearance is similar to the prior exam. 2. Small fat containing left spigelian hernia. Please note that all CT scans at this facility use dose modulation, iterative reconstruction, and/or weight-based dosing when appropriate to reduce radiation dose to as low as reasonably achievable. Dictated by Luis Olivera MD @ Sep 24 2018 8:02PM Signed by Dr. Luis Olivera @ Sep 24 2018 8:15PM
[2018-09-24] MEDS ORDERED: Calcium Carbonate 500 MG Tab.Chew PO PRN (20:58)
[2018-09-24] MEDS: Pantoprazole 40 MG Vial IVPUSH SCH (21:42)
[2018-09-24] MEDS: diphenhydrAMINE 50 MG/ML SDV IVPUSH PRN (21:43)
[2018-09-25] MEDS: Dextrose 5%-Lactated Ringers 1,000 ML IV SCH ×3 (01:48→18:39)
[2018-09-25] MEDS: diphenhydrAMINE 50 MG/ML SDV IVPUSH PRN ×3 (02:35→20:57)
[2018-09-25] MEDS ORDERED: Meropenem 500 MG SDV ONE (06:43)
[2018-09-25] MEDS ORDERED: Neostigmine Methylsulfate 1 MG/ML 5 ML Syringe ONE (07:20)
[2018-09-25] MEDS ORDERED: Ondansetron 4 MG/2 ML SDV ONE (07:20)
[2018-09-25] MEDS ORDERED: Propofol 200 MG/20 ML SDV ONE (07:20)
[2018-09-25] MEDS ORDERED: fentaNYL 250 MCG/5 ML SDV ONE (07:20)
[2018-09-25] MEDS ORDERED: Dexamethasone 4 MG/ML SDV ONE (07:20)
[2018-09-25] MEDS ORDERED: Glycopyrrolate 0.2 MG/ML 5 ML MDV ONE (07:20)
[2018-09-25] MEDS ORDERED: Rocuronium 50 MG/5 ML Vial ONE (07:20)
[2018-09-25] MEDS ORDERED: Ketamine 50 MG in Sodium Chloride 0.9% 49.5 ML IV SCH (07:30)
[2018-09-25] MEDS ORDERED: Ropivacaine 36 ML, Dexamethasone 8 MG, EPINEPHrine 0.4 MG, Sodium Chloride 0.9% 41.6 ML NERVRT SCH ×4 (07:30)
[2018-09-25] MEDS ORDERED: Ketamine 500 MG/5 ML MDV IV SCH (07:30)
[2018-09-25] MEDS ORDERED: ceFAZolin 2 GM in Premix Bag 1 BAG IV ONE (07:30)
[2018-09-25] MEDS ORDERED: Lactated Ringers 1,000 ML ONE (07:55)
[2018-09-25] MEDS ORDERED: Lidocaine 1% with EPINEPHrine 1:100,000 50 ML MDV ONE (08:01)
[2018-09-25] MEDS ORDERED: Bupivacaine 0.5%/EPINEPHrine 1:200,000 50 ML MDV ONE (08:02)
[2018-09-25] MEDS ORDERED: Ketorolac 60 MG/2 ML SDV ONE (09:14)
[2018-09-25] MEDS ORDERED: Calcium Carbonate 500 MG Tab.Chew PO PRN (11:24)
[2018-09-25] MEDS: Meropenem 500 MG in Sodium Chloride 0.9% 50 ML IV SCH ×3 (12:48→23:58)
[2018-09-25] MEDS: ceFAZolin 2 GM in Premix Bag 1 BAG IV SCH ×2 (13:41→20:57)
[2018-09-25] MEDS: HYDROmorphone/Normal Saline 15 MG/30 ML PCA IV PRN (15:22)
[2018-09-25] MEDS: Pantoprazole 40 MG Vial IVPUSH SCH (20:57)
[2018-09-26] MEDS: Dextrose 5%-Lactated Ringers 1,000 ML IV SCH ×3 (01:14→19:30)
[2018-09-26] MEDS: Cyclobenzaprine 10 MG Tab PO PRN ×3 (04:41→21:47)
[2018-09-26] MEDS: ceFAZolin 2 GM in Premix Bag 1 BAG IV SCH ×3 (04:44→20:58)
[2018-09-26] MEDS: Meropenem 500 MG in Sodium Chloride 0.9% 50 ML IV SCH ×4 (05:30→23:55)
[2018-09-26] MEDS: HYDROmorphone/Normal Saline 15 MG/30 ML PCA IV PRN (09:39)
[2018-09-26] MEDS: Ondansetron 4 MG/2 ML SDV IVPUSH PRN (11:39)
[2018-09-26] MEDS: Acetaminophen Soln 160 MG/5 ML UD Cup PO SCH (19:30)
[2018-09-26] MEDS: Pantoprazole 40 MG Vial IVPUSH SCH (20:58)
[2018-09-26] MEDS: diphenhydrAMINE 50 MG/ML SDV IVPUSH PRN (21:49)
[2018-09-27] MEDS ORDERED: Acetaminophen Soln 650 MG/20.3 ML UD Cup ONE (02:39)
[2018-09-27] MEDS: Acetaminophen Soln 160 MG/5 ML UD Cup PO SCH (02:52)
[2018-09-27] MEDS: ceFAZolin 2 GM in Premix Bag 1 BAG IV SCH ×3 (04:07→20:34)
[2018-09-27] MEDS: Cyclobenzaprine 10 MG Tab PO PRN (04:07)
[2018-09-27] MEDS: Meropenem 500 MG in Sodium Chloride 0.9% 50 ML IV SCH ×3 (06:20→17:37)
--- NOTE | 2018-09-27 08:08 | PN ---
DATE OF SERVICE: 09/27/2018 SUBJECTIVE: Darlene is postoperative day #1. Pain has been controlled with the STORY TELLER. She is on a full liquid diet. Oral intake 1720. She continues to have the Davis catheter in, which will be in for about 4 weeks due to bladder repair, and she had 2160 out. Did have a bowel movement this morning. REVIEW OF SYSTEMS: Remainder of review of systems negative for any pertinent positives and negatives. OBJECTIVE: GENERAL: Darlene Saavedra is a 53-year-old female. She is sitting up in bed, alert, orientated. VITAL SIGNS: TPR 98.8, 98, 18, blood pressure 106/42. HEENT: Negative. NECK: Supple. HEART: Regular rate and rhythm. LUNGS: Clear. ABDOMEN: Dressings dry and intact. Abdominal binder is on. EXTREMITIES: Without peripheral edema. ASSESSMENT: Exploratory laparotomy with lysis of extensive adhesions: 1. Repair of recurrent incarcerated incisional hernia with mesh. 2. Repair of recurrent right inguinal hernia (no mesh). 3. Repair of urinary bladder. 4. Removal of intraperitoneal mesh adherent to urinary bladder. 5. Placement of Interceed mesh for recurrent incarcerated incisional hernia, recurrent right inguinal hernia with mesh adherent to urinary bladder and extensive intraabdominal adhesions. Date of surgery: 09/25/2018. Surgeon: Av Cobian MD. PLAN: Dulcolax 5 mg tablets, take two b.i.d. Good pulmonary toilet. We will evaluate p.r.n. or in a.m. Consuelo Varela PA-C /[id number]
[2018-09-27] MEDS: HYDROmorphone/Normal Saline 15 MG/30 ML PCA IV PRN (08:26)
[2018-09-27] MEDS: Bisacodyl 5 MG Tab PO SCH ×2 (08:29→20:33)
[2018-09-27] MEDS: Acetaminophen Soln 650 MG/20.3 ML UD Cup PO SCH ×3 (08:29→20:33)
[2018-09-27] MEDS ORDERED: Bisacodyl 5 MG Tab PO SCH (09:00)
[2018-09-27] MEDS: diphenhydrAMINE 50 MG/ML SDV IVPUSH PRN (20:51)
[2018-09-27] MEDS ORDERED: Pantoprazole 40 MG Tab.CR PO SCH (21:00)
[2018-09-27] MEDS: Dextrose 5%-Lactated Ringers 1,000 ML IV SCH (22:44)
[2018-09-28] MEDS: Meropenem 500 MG in Sodium Chloride 0.9% 50 ML IV SCH ×2 (00:24→05:52)
[2018-09-28] MEDS: Acetaminophen Soln 650 MG/20.3 ML UD Cup PO SCH (03:05)
[2018-09-28] MEDS: HYDROmorphone/Normal Saline 15 MG/30 ML PCA IV PRN (04:48)
[2018-09-28] MEDS: ceFAZolin 2 GM in Premix Bag 1 BAG IV SCH (05:10)
[2018-09-28] MEDS ORDERED: Acetaminophen/oxyCODONE 325-5 MG Tab PO PRN (07:32)
[2018-09-28 08:15] VITALS: BP 119/50
[2018-09-28] MEDS ORDERED: Fluconazole 100 MG Tab PO ONE (09:00)
--- NOTE | 2018-09-29 15:44 | DISCH ---
FINAL DIAGNOSES: 1. Recurrent incarcerated incisional hernia. 2. Recurrent right inguinal hernia. 3. Mesh adherent to the urinary bladder. 4. Extensive intraabdominal and pelvic adhesions. 5. History of multiple previous umbilical and lower abdominal wall hernia repairs. OPERATIVE PROCEDURES: This was done on 09/25/2018; exploratory laparotomy with lysis of extensive adhesions and, 1. Repair of recurrent incarcerated incisional hernia with mesh. 2. Repair of recurrent right inguinal hernia (no mesh). 3. Repair of urinary bladder. 4. Removal of intraperitoneal mesh adherent to urinary bladder. 5. Placement of Interceed mesh to limit pelvic and lower abdominal adhesion formation. HOSPITAL COURSE: This is a 53-year-old presenting with somewhat acute onset of her hernia. This represented as a rather large bulge in the suprapubic and overlying the pubic bone anteriorly. Ultimately, this appeared to be related to recurrence of an incisional hernia related to previous Pfannenstiel incision used for caesarian section. At the time of exploration, some of the previously-used mesh on the right inguinal area was densely adherent to the urinary bladder, and this required repair of the bladder along with removal of the portion of that mesh. The patient was also noted to have a small, roughly 1 cm or less, recurrent hernia in the lateral aspect of the right inguinal floor, which was repaired concurrently without mesh. Postoperatively, the patient's ileus has now resolved, and she is eating satisfactorily. She will be discharged home on Percocet 5/325, 1 to 2 tabs q.4 hours p.r.n. pain, #50; along with Colace 100 mg p.o. b.i.d. With the bladder repair, she will be sent home with a bladder catheter and will leave that until the next appointment, which will be on 10/06/2018. The patient will receive a single dose of Diflucan orally this morning, as in the past, she has had problems with thrush after antibiotics, and this will preemptively treat that issue.
--- NOTE | 2018-09-30 08:57 | PN ---
DATE OF SERVICE: 09/26/2018 The patient has been afebrile with stable vital signs. No major problems were noted overnight. She does have a fair bit of incisional pain, as one would expect. She has been up walking already, and urine output has been satisfactory. Overall, the patient has been doing reasonably well. We will give her a full liquid diet today but encouraged her to go quite slow with oral intake at this point, back down the IV rate, continue to maximize activity, and work with pulmonary toilet. Davis catheter will need to be left in for at least around 7 days. Av Cobian MD /[id number]
--- NOTE | 2018-09-30 09:09 | OR ---
DATE OF PROCEDURE: 09/25/2018 PREOPERATIVE DIAGNOSIS: Recurrent incisional hernia. POSTOPERATIVE DIAGNOSES: 1. Recurrent incarcerated incisional hernia. 2. Recurrent right inguinal hernia. 3. Mesh adherent to portion of the urinary bladder. 4. Extensive intraabdominal and pelvic adhesions. OPERATIVE PROCEDURES: Exploratory laparotomy with lysis of extensive adhesions and: 1. Repair of recurrent incarcerated incisional hernia with mesh (34682, 06171). 2. Repair of recurrent right inguinal hernia (no mesh) (86672). 3. Repair of urinary bladder at the point where intraperitoneal mesh was adherent to bladder wall (32792). 4. Removal of intraperitoneal mesh adherent to urinary bladder (02440). 5. Placement of Interceed mesh to limit recurrent pelvic and abdominal wall adhesion formation (17772). ANESTHESIA: General. INDICATION FOR PROCEDURE: This 53-year-old was admitted yesterday with quite marked pain related to semi-acute onset of a recurrent hernia. This is a hernia that is in the suprapubic area and extends downward anterior to the pubic bone and is fairly uncomfortable. A CT scan was obtained last evening, which did not show any specific additional pathology. Plan is to proceed with an open laparotomy and repair of the hernia. She has apparently some discomfort associated with mesh in the past, but at other times has done well with mesh, and this is a hernia that, without mesh repair, would almost 100% of the time recur, so mesh will be planned to be used. Potential risks of the procedure including bleeding, infection, injury to underlying viscera, problems with mesh becoming infected or hernia recurring, and chronic pain associated with the repair were all reviewed with the patient, and she wishes to proceed. DETAILS OF PROCEDURE: The patient was taken to the operating room and placed in a supine position. After general endotracheal anesthesia was induced, a Davis catheter was inserted, and the abdomen was prepped and draped. A midline incision from the pubic bone up to roughly 2 or 3 fingerbreadths below the umbilicus was made and carried down through the full- thickness abdominal wall. Some previously placed intraperitoneal mesh was divided along the lower aspect of this. As one dissected downward, the patient had some incarcerated component of the hernia. This only appeared to be recurrence of the hernia through a Pfannenstiel incision, as it was coming directly from the midline rather than from one of the sides, as far as the tract of the hernia. This contained some incarcerated omentum and small bowel, which was dissected free. As one began to dissect the peritoneum down away from the pubic bone and in the hernia site, further dissection showed some previously-used mesh for the right-sided inguinal floor hernia repair was densely adherent to the urinary bladder. This was excised. There was near full-thickness opening of the urinary bladder along its lateral aspect. This was well above the point where the ureters would typically be coming in. This otherwise somewhat complicated repair was then accomplished with two layers of 2-0 Vicryl stitch, the first being a full-thickness layer and the next being more of a seromuscular-type layer. This appeared to satisfactory close the bladder. The remainder of the mesh on the area covering the right inguinal floor was left in place. The patient was noted to have a pinpoint roughly pencil-sized, in terms of diameter, opening in the lateral aspect of the inguinal hernia repair. The peritoneum from this was excised and that was then closed with a running #1 Vicryl stitch. Mesh was elected not to be used in this site. Remainder of the inguinal floor, where the patient had both incisional and inguinal hernia repairs multiple times in the past, was generally intact, although somewhat irregular, giving the patient a clinical appearance of some lumpiness when she stands up, as noted preoperatively, but the floor itself was generally intact. At this point, Ventrio ST mesh with an oval configuration with a long axis of 17.8 cm and a transverse axis of 13.8 cm was selected. This was soaked in antibiotic-containing saline solution. At roughly 5 cm intervals around its circumference, 2-0 Vicryl sutures were placed in the polypropylene-side of the mesh, which was then soaked in antibiotic-containing solution. The suprapubic space was then developed bluntly, dissecting the bladder back away from the pubic bone to allow a significant overlap of the mesh behind and superior to the pubic bone. The mesh was initially placed in that location and then, using titanium tacking screws placed through the shelf of the mesh, i.e. not exposed to any viscera per se, the mesh was affixed with multiple layers of tacks to help affix that mesh in place. This would be, if the hernia were to recur, the likely point of failure, so we were careful to use quite a bit in the way of tacks to keep this in position. Once this was in place, the mesh was fixed in the intraperitoneal location. Initially, the lower portion of the sutures were pulled up through stab wounds and tied. To limit recurrent adhesion formation between the mesh, as well as the urinary bladder and the underlying viscera, Interceed mesh was placed behind the mesh, well down into the pelvis, and along the pelvic sidewalls. The remaining sutures were then pulled up, thus affixing the mesh in position. The mesh was then further affixed circumferentially with titanium tacking screws, again placed in the underlying shelf of the mesh so as not to expose the viscera per se. Following this, then the midline fascia was then approximated with a #2 Vicryl stitch, and the subcutaneous tissue with two layers of 3- 0 and 4-0 Vicryl stitch deep and debra for the skin. The patient was taken to the recovery room in a satisfactory condition. There were no evident complications. Av Cobian MD /[id number]
== END 2018-09-28 09:21 | disposition home or self-care (01) | DRG 346 ==
LOC: JP.MS 16:10
PROVIDERS: ADMIT Surgery; ATTEND Surgery
PROC: 0WUF0JZ Supplement Abdominal Wall with Synthetic Substitute, Open Approach (ICD-10-PCS; principal; 2018-09-25)
PROC: 0YQ50ZZ Repair Right Inguinal Region, Open Approach (ICD-10-PCS; 2018-09-25)
PROC: 0WPF0JZ Removal of Synthetic Substitute from Abdominal Wall, Open Approach (ICD-10-PCS; 2018-09-25)
PROC: 3E0M05Z Introduction of Adhesion Barrier into Peritoneal Cavity, Open Approach (ICD-10-PCS; 2018-09-25)
PROC: 0TQB0ZZ Repair Bladder, Open Approach (ICD-10-PCS; 2018-09-25)
DX: K43.0 Incisional hernia with obstruction, without gangrene (principal); K40.91 Unilateral inguinal hernia, without obstruction or gangrene, recurrent; K66.0 Peritoneal adhesions (postprocedural) (postinfection); N32.89 Other specified disorders of bladder
CPT/HCPCS: 36415; 74177; 80053; 83735; 84100; 85025; 87220; 88300; 88302; 94762; A9270-GY; C1781; C9113; J0171; J0690; J1100; J1170; J1200; J1885; J2020; J2185; J2405; J2704; J2710; J2795; J3010; J3490; J7030; J7042; J7050; J7120; Q9965; Q9967

== ENCOUNTER 2019-01-09 18:05 | Emergency (ER) | payer MEDICARE, OTHER ==
[2019-01-09] MEDS ORDERED: HYDROmorphone 1 MG/ML Syringe IVPUSH ONE (18:43)
[2019-01-09] MEDS ORDERED: Metoclopramide 10 MG/2 ML SDV IVPUSH ONE (18:43)
[2019-01-09] MEDS ORDERED: Lactated Ringers 1,000 ML IV SCH (18:45)
--- NOTE | 2019-01-09 18:49 | EDM.PDOC ---
ED HPI GENERAL MEDICAL PROBLEM - General Chief Complaint: Abdominal Pain Stated Complaint: LOWER RIGHT SIDE ABD PAIN Time Seen by Provider: 01/09/19 18:35 Source of Information: Reports: Patient, Old Records History Limitations: Reports: No Limitations - History of Present Illness INITIAL COMMENTS - FREE TEXT/NARRATIVE: 53 yo female presents with RLQ pain that began abruptly while eating about 4 pm today. Has mild nausea. Feels like she has to urinate often, but there is no dysuria. No fever. Still has her appendix, but has had multiple surgeries or a R inguinal hernia and is pretty sure this is back. Has hx of constipation, but has been going lately with the help of Mag citrate. Has an appt with Dr. Cobian later this week. Moving makes her pain worse. Onset: Today Onset Date: 01/09/19 Onset Time: 16:00 Duration: Hour(s):, Getting Worse Location: Reports: Abdomen (RLQ) Quality: Reports: Pressure Severity: Moderate Improves with: Reports: Rest Worsens with: Reports: Movement Context: Reports: Other (See HPI) Associated Symptoms: Reports: Nausea/Vomiting (no vomiting). 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: Reports: Other (see below) (none) Right Lower Abdomen Pain Score (Numeric/FACES): 8 - Related Data Allergies Allergy/AdvReac Type Severity Reaction Status Date / Time latex Allergy Rash Verified 01/09/19 19:05 Home Meds: Home Meds NK [No Known Home Meds] 01/09/19 [History] Past Medical History - Past Health History Medical/Surgical History: Denies Medical/Surgical History HEENT History: Reports: Allergic Rhinitis, Impaired Vision Other HEENT History: wears glasses Cardiovascular History: Reports: None Respiratory History: Reports: Bronchitis, Recurrent Gastrointestinal History: Reports: Bowel Obstruction, Cholelithiasis, Other ( See Below) Other Gastrointestinal History: right inguinal hernia Hematoma removed from groin Hernia surgery x8. 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" Musculoskeletal History: Reports: Fibromyalgia Neurological History: Reports: None Psychiatric History: Reports: Anxiety, Panic Attack Endocrine/Metabolic History: Reports: None Hematologic History: Reports: None Immunologic History: Reports: None Oncologic (Cancer) History: Reports: None Dermatologic History: Reports: None - Infectious Disease History Infectious Disease History: Reports: Chicken Pox - Past Surgical History HEENT Surgical History: Reports: Tonsillectomy GI Surgical History: Reports: Cholecystectomy, Hernia, Inguinal, Hernia Repair/ Other Female Surgical History: Reports: Section, D&C, Hysterectomy, Salpingo-Oophorectomy, Tubal Ligation Neurological Surgical History: Reports: None Musculoskeletal Surgical History: Reports: Other (See Below) Other Musculoskeletal Surgeries/Procedures:: ankle fracture with pins placed ulnar nerve left Dermatological Surgical History: Reports: Skin Biopsy Social & Family History - Family History Family Medical History: Noncontributory HEENT: Reports: Impaired Vision Cardiac: Reports: Heart Failure Respiratory: Reports: COPD GI: Reports: None : Reports: None OBGYN: Reports: None Musculoskeletal: Reports: Fibromyalgia Neurological: Reports: None Psychiatric: Reports: Anxiety, Depression, Panic Attack Endocrine/Metabolic: Reports: Diabetes, type II Hematologic: Reports: None Immunologic: Reports: None Dermatologic: Reports: None Oncologic: Reports: Ovarian - Caffeine Use Caffeine Use: Reports: Coffee Other Caffeine Use: 6 cups a day ED ROS GENERAL - Review of Systems Review Of Systems: See Below Constitutional: Reports: No Symptoms HEENT: Reports: No Symptoms Respiratory: Reports: No Symptoms Cardiovascular: Reports: No Symptoms GI/Abdominal: Reports: Abdominal Pain, Nausea. Denies: Black Stool, Bloody Stool, Constipation, Diarrhea, Decreased Appetite, Distension, Flatus, Hematochezia, Melena, Vomiting : Reports: Frequency. Denies: Dysuria, Flank Pain Musculoskeletal: Reports: No Symptoms Skin: Reports: No Symptoms Neurological: Reports: No Symptoms ED EXAM, GI/ABD - Physical Exam Exam: See Below Exam Limited By: No Limitations General Appearance: Alert, WD/WN, Mild Distress Eyes: Bilateral: Normal Appearance Ears: Normal External Exam, Normal Canal, Hearing Grossly Normal, Normal TMs Nose: Normal Inspection, No Blood Throat/Mouth: Normal Inspection, Normal Lips, Normal Oropharynx, Normal Voice, No Airway Compromise Head: Atraumatic, Normocephalic Neck: Normal Inspection Respiratory/Chest: No Respiratory Distress, Lungs Clear, Normal Breath Sounds, No Accessory Muscle Use Cardiovascular: Regular Rate, Rhythm, No Edema GI/Abdominal Exam: Soft, No Distention, Guarding, Rebound, Tender (RLQ), Abnormal Bowel Sounds (decreased). No: Non-Tender, Distended, Rigid Back Exam: Normal Inspection. No: CVA Tenderness (R), CVA Tenderness (L) Extremities: Normal Inspection, Normal Range of Motion, Non-Tender, No Pedal Edema Neurological: Alert, Oriented, CN II-XII Intact, Normal Cognition, No Motor/ Sensory Deficits Psychiatric: Normal Affect, Normal Mood Skin Exam: Warm, Dry, Intact, Normal Color, No Rash Course - Vital Signs Text/Narrative:: Dr. Cobian notified @ Last Recorded V/S: Last Vital Signs Temp 36.5 C 01/09/19 19:09 Pulse 88 01/09/19 19:09 Resp 14 01/09/19 19:09 BP 158/74 H 01/09/19 19:09 Pulse Ox 98 01/09/19 19:09 - Orders/Labs/Meds Orders: Active Orders 24 hr Category Date Time Status Sodium Chloride 0.9% [Normal Saline] 1,000 ml Med 01/09/19 19:30 Active IV ASDIRECTED Medication Orders Sodium Chloride (Normal Saline) 1,000 mls @ 250 mls/hr IV ASDIRECTED SHILO Last Admin: 01/09/19 19:19 Dose: 250 mls/hr Labs: Laboratory Tests 01/09/19 01/09/19 01/09/19 Range/Units 18:57 18:57 19:00 WBC 7.9 (4.5-11.0) K/uL RBC 5.06 (3.30-5.50) M/uL Hgb 14.9 (12.0-15.0) g/dL Hct 46.3 (36.0-48.0) % MCV 92 (80-98) fL MCH 29 (27-31) pg MCHC 32 (32-36) % Plt Count 128 L (150-400) K/uL Sodium 143 (140-148) mmol/L Potassium 3.7 (3.6-5.2) mmol/L Chloride 105 (100-108) mmol/L Carbon Dioxide 26 (21-32) mmol/L Anion Gap 11.7 (5.0-14.0) mmol/L BUN 21 H (7-18) mg/dL Creatinine 0.7 (0.6-1.0) mg/dL Est Cr Clr Drug Dosing 82.67 mL/min Estimated GFR (MDRD) > 60 (>60) Glucose 100 (74-106) mg/dL Calcium 8.9 (8.5-10.1) mg/dL Urine Color Yellow Urine Appearance Slightly cloudy Urine pH 5.0 (4.5-8.0) Ur Specific [place] 1.020 (1.008-1.030) Urine Protein Negative (NEGATIVE) mg/dL Urine Glucose (UA) Normal (NEGATIVE) mg/dL Urine Ketones Negative (NEGATIVE) mg/dL Urine Occult Blood Moderate (NEGATIVE) Urine Nitrite Negative (NEGATIVE) Urine Bilirubin Negative (NEGATIVE) Urine Urobilinogen Normal (NORMAL) mg/dL Ur Leukocyte Esterase Small (NEGATIVE) Urine RBC 0-5 (0-5) Urine WBC 5-10 H (0-5) Ur Epithelial Cells Rare Amorphous Sediment Not seen Urine Bacteria Few Urine Mucus Not seen Meds: Medications Generic Name Dose Route Start Last Admin Trade Name Jeovanny PRN Reason Stop Dose Admin Sodium Chloride 1,000 mls @ 250 mls/hr 01/09/19 19:30 01/09/19 19:19 Normal Saline IV 250 mls/hr ASDIRECTED SHILO Administration Discontinued Medications Generic Name Dose Route Start Last Admin Trade Name Jeovanny PRN Reason Stop Dose Admin Hydromorphone HCl 1 mg 01/09/19 18:43 01/09/19 19:24 Dilaudid IVPUSH 01/09/19 18:44 1 mg ONETIME ONE Administration Hydromorphone HCl 0.5 mg 01/09/19 20:20 Dilaudid IVPUSH 01/09/19 20:21 ONETIME ONE Lactated Ringer's 1,000 mls @ 250 mls/hr 01/09/19 18:45 Ringers, Lactated IV ASDIRECTED SHILO Sodium Chloride 70 mls @ 3 mls/sec 01/09/19 19:45 01/09/19 19:44 Normal Saline IV 01/09/19 19:46 3 mls/sec ONETIME ONE Administration Iopamidol 100 ml 01/09/19 19:45 01/09/19 19:44 Isovue-300 (61%) IV 01/09/19 19:46 100 ml ONETIME ONE Administration Metoclopramide HCl 10 mg 01/09/19 18:43 01/09/19 19:21 Reglan IVPUSH 01/09/19 18:44 10 mg ONETIME ONE Administration Sodium Chloride 10 ml 01/09/19 19:31 01/09/19 19:44 Saline Flush FLUSH 01/09/19 19:32 10 ml ONETIME ONE Administration - Radiology Interpretation Free Text/Narrative:: CT abd/pelvis with IV contrast-Spigelian hernia R CT Results Date: 01/09/19 Departure - Departure Time of Disposition: 21:00 Disposition: Home, Self-Care 01 Condition: Fair Clinical Impression: Spigelian hernia - Discharge Information *PRESCRIPTION DRUG MONITORING PROGRAM REVIEWED*: No *COPY OF PRESCRIPTION DRUG MONITORING REPORT IN PATIENT ELIEZER: No Instructions: Hernia, Adult, [id number] Referrals: Tristian Simmons Sr, MD [Primary Care Provider] - Forms: ED Department Discharge Additional Instructions: Diet as tolerated. Rest with no lifting or exertion. Keep your appt with Dr. Cobian for later in the week, call his office tomorrow as needed for any changes in your condition. Use Zofran as needed for nausea control and Percocet for pain relief. - My Orders Last 24 Hours: My Active Orders 01/09/19 19:30 Sodium Chloride 0.9% [Normal Saline] 1,000 ml IV ASDIRECTED - Assessment/Plan Last 24 Hours: My Active Orders 01/09/19 19:30 Sodium Chloride 0.9% [Normal Saline] 1,000 ml IV ASDIRECTED
[2019-01-09] MEDS ORDERED: Sodium Chloride 0.9% 1,000 ML IV SCH (19:30)
[2019-01-09] MEDS ORDERED: Sodium Chloride 0.9% 10 ML Syringe FLUSH ONE (19:31)
[2019-01-09] MEDS ORDERED: Iopamidol 612 MG/ML 100 ML Bottle IV ONE (19:45)
[2019-01-09] MEDS ORDERED: HYDROmorphone 0.5 MG/0.5 ML Syringe IVPUSH ONE (20:20)
--- NOTE | 2019-01-09 20:34 | CRLCT ---
INDICATION: Right lower quadrant pain. History of recurrent inguinal hernia. COMPARISON: 09/24/2018 TECHNIQUE: CT examination of the abdomen and pelvis was performed with the uneventful intravenous administration of 100 cc of Isovue-300 while 3 mm thick axial sections were obtained from the lung bases through the pubic symphysis. Oral contrast was not administered. Please note that all CT scans at this facility use dose modulation, iterative reconstruction, and/or weight-based dosing when appropriate to reduce radiation dose to as low as reasonably achievable. FINDINGS: In the abdomen, the liver is again seen to have mild intrahepatic biliary ductal dilatation consistent with post cholecystectomy status. Surgical clips are again seen in the gallbladder fossa. The common bile duct remains moderately dilated at 11 millimeters. B spleen, pancreas, and adrenals are normal in appearance. Again seen is a small left renal cyst. The kidneys are otherwise normal in appearance. The abdominal aorta is normal in caliber with no sign of dilatation. There is no sign of retroperitoneal mass or adenopathy. The stomach, loops of small bowel, and colon in the abdomen are normal in appearance. There has been revision of the previously seen hernia repair of the inferior anterior pelvic wall. The previously seen convexity is no longer present, with multiple markers from new mesh repair. There is new protrusion of the lateral wall of the cecum through a defect at the right lateral edge of the hernia repair, best seen on axial images 128 through 136. There is no sign of obstruction or incarceration of this portion of the cecal wall. This is consistent with a small right lateral spigelian hernia, increased in size compared to the previous study. Again seen is the small left lateral spigelian hernia containing only fat. In the pelvis, the appendix is normal in appearance with no sign of inflammatory process. The loops of small bowel and the rest of the colon in the pelvis are normal in appearance. The uterus is absent and the adnexal regions are normal in appearance. The urinary bladder is normal in appearance. There is no sign of pelvic or inguinal mass or adenopathy. The lung bases are clear. The osseous structures are normal in appearance for the patient`s age. IMPRESSION: CT of the abdomen show stable appearance status post cholecystectomy with mild intrahepatic and moderate extrahepatic biliary ductal dilatation. CT of the pelvis shows revision of the previously seen anterior lower pelvic wall hernia repair, with no sign of residual laxity of the anterior pelvic wall. New mild right lateral protrusion of the lateral wall of the cecum through a right spigelian hernia at the lateral margin of the hernia repair. No signs of incarceration or obstruction of the colon. No change in small left lateral fat containing spigelian hernia. Status post hysterectomy. Please note that all CT scans at this facility use dose modulation, iterative reconstruction, and/or weight-based dosing when appropriate to reduce radiation dose to as low as reasonably achievable. Dictated by Lawrence Mari MD @ Jan 09 2019 8:24PM Signed by Dr. Lawrence Mari @ Jan 09 2019 8:33PM
[2019-01-09 20:46] VITALS: BP 143/65; PULSE 73
== END 2019-01-09 21:09 | disposition home or self-care (01) ==
LOC: JP.ED 18:05
DX: K43.9 Ventral hernia without obstruction or gangrene (principal); Z91.040 Latex allergy status
CPT/HCPCS: 36415; 74177; 80048; 81001; 85027; 96361; 96374; 96375; 96376; 99284; J1170; J2765; J7030; Q9967

== ENCOUNTER 2019-01-13 08:25 | Inpatient (IN) | payer MEDICARE, OTHER ==
[~2019-01-13 08:25] MED LIST changes: +Bupivacaine 0.5%/EPINEPHrine 1:200,000 50 ML MDV ONE; -Dexamethasone 4 MG/ML SDV ONE; -Glycopyrrolate 0.2 MG/ML 5 ML MDV ONE; +Meropenem 500 MG SDV ONE; -Neostigmine Methylsulfate 1 MG/ML 5 ML Syringe ONE; -Ondansetron 4 MG/2 ML SDV ONE; -Propofol 200 MG/20 ML SDV ONE; -Rocuronium 50 MG/5 ML Vial ONE; -fentaNYL 250 MCG/5 ML SDV ONE
[2019-01-13] MEDS ORDERED: Acetaminophen 500 MG Tab PO ONE (08:30)
[2019-01-13] MEDS ORDERED: Dextrose 5%-Lactated Ringers 1,000 ML IV SCH (08:45)
[2019-01-13] MEDS ORDERED: ceFAZolin 2 GM in Sodium Chloride 0.9% 50 ML IV ONE (09:30)
[2019-01-13] MEDS ORDERED: Ondansetron 4 MG/2 ML SDV ONE (09:56)
[2019-01-13] MEDS ORDERED: Propofol 200 MG/20 ML SDV ONE (09:56)
[2019-01-13] MEDS ORDERED: Rocuronium 50 MG/5 ML Vial ONE (09:56)
[2019-01-13] MEDS ORDERED: Dexamethasone 4 MG/ML SDV ONE (09:56)
[2019-01-13] MEDS ORDERED: Neostigmine Methylsulfate 1 MG/ML 5 ML Syringe ONE (09:56)
[2019-01-13] MEDS ORDERED: Glycopyrrolate 0.2 MG/ML 5 ML MDV ONE (09:56)
[2019-01-13] MEDS ORDERED: fentaNYL 250 MCG/5 ML SDV ONE ×3 (09:56→12:55)
[2019-01-13] MEDS ORDERED: Ropivacaine 36 ML, dexAMETHasone 8 MG, EPINEPHrine 0.4 MG, Sodium Chloride 0.9% 41.6 ML NERVRT SCH ×4 (10:15)
[2019-01-13] MEDS ORDERED: Ketamine 500 MG/5 ML MDV IV SCH (10:15)
[2019-01-13] MEDS ORDERED: Ketamine 50 MG in Sodium Chloride 0.9% 49.5 ML IV SCH (10:15)
[2019-01-13] MEDS ORDERED: Labetalol 20 MG/4 ML Syringe ONE (12:26)
[2019-01-13] MEDS ORDERED: Lactated Ringers 1,000 ML ONE (13:17)
[2019-01-13] MEDS ORDERED: Albuterol/Ipratropium 3.0-0.5 MG/3 ML Neb Soln NEB ONE (14:08)
[2019-01-13] MEDS ORDERED: hydrOXYzine HCl 100 MG/2 ML SDV IM ONE (14:15)
[2019-01-13] MEDS ORDERED: fentaNYL 100 MCG/2 ML SDV IVPUSH ONE (14:22)
[2019-01-13] MEDS: HYDROmorphone/Normal Saline 15 MG/30 ML PCA IV PRN (14:41)
[2019-01-13] MEDS ORDERED: Albuterol/Ipratropium 3.0-0.5 MG/3 ML Neb Soln INH PRN (16:02)
[2019-01-13] MEDS ORDERED: hydrOXYzine HCl 100 MG/2 ML SDV IM PRN (16:03)
[2019-01-13] MEDS ORDERED: Cyclobenzaprine 10 MG Tab PO PRN (16:03)
[2019-01-13] MEDS ORDERED: Ondansetron 4 MG/2 ML SDV IVPUSH PRN (16:04)
[2019-01-13] MEDS ORDERED: Pantoprazole 40 MG Vial IV SCH (16:30)
[2019-01-13] MEDS: Albuterol/Ipratropium 3.0-0.5 MG/3 ML Neb Soln INH SCH ×2 (16:33→20:54)
[2019-01-13] MEDS: cefOXitin 2 GM in Sodium Chloride 0.9% 50 ML IV SCH ×2 (16:36→21:00)
[2019-01-13] MEDS: Dextrose 5%-Lactated Ringers 1,000 ML IV SCH (20:59)
[2019-01-13] MEDS: diphenhydrAMINE 25 MG Cap PO PRN ×2 (20:59→23:27)
[2019-01-14] MEDS: cefOXitin 2 GM in Sodium Chloride 0.9% 50 ML IV SCH (03:04)
[2019-01-14] MEDS: diphenhydrAMINE 25 MG Cap PO PRN (03:08)
[2019-01-14] MEDS: Dextrose 5%-Lactated Ringers 1,000 ML IV SCH (04:56)
[2019-01-14] MEDS: HYDROmorphone/Normal Saline 15 MG/30 ML PCA IV PRN (06:23)
[2019-01-14] MEDS: Albuterol/Ipratropium 3.0-0.5 MG/3 ML Neb Soln INH SCH (07:06)
[2019-01-14] MEDS ORDERED: Acetaminophen/oxyCODONE 325-5 MG Tab PO PRN (07:30)
[2019-01-14] MEDS ORDERED: Ibuprofen 600 MG Tab PO PRN (07:31)
[2019-01-14 07:46] VITALS: BP 106/53; PULSE 96
[2019-01-14] MEDS ORDERED: Fluconazole 100 MG Tab PO SCH (09:00)
--- NOTE | 2019-01-14 09:16 | DISCH ---
ADMISSION DIAGNOSIS: Spigelian hernia. DISCHARGE DIAGNOSES: Diagnostic laparoscopy with lysis of adhesions: A. Resection of portion of the cecum after takedown of the hernia. B. Repair of incarcerated recurrent incisional hernia. C. Repair of incarcerated spigelian hernia for recurrent incarcerated incisional hernia with adherent cecum in the hernia. D. Incarcerated spigelian hernia. Date of surgery 01/13/2019. Surgeon, Av Cobian MD. HISTORY: Darlene Saavedra is a 53-year-old female with spigelian hernia and recurrent incisional hernias. After preoperative evaluation, discussion of the possible risks and possible complications, she wished to proceed with surgical procedure. HOSPITAL COURSE: Darlene had her surgery on 01/13/2019 and on 01/14/2019, she was ready to be discharged. Pain was well managed, activity was good. Vital signs were stable. PHYSICAL EXAMINATION: GENERAL: Darlene is a 53-year-old female. VITAL SIGNS: Height is 5 feet 4.96 inches. Weight is 158 pounds. TPR is 99.2, 96, 12 and blood pressure 106/53. HEENT: Negative. NECK: Supple. HEART: Regular rate and rhythm. LUNGS: Clear. ABDOMEN: Dressings were taken down and sutures intact. There is a pressure dressing on her right lower inguinal area. This is to remain on with the abdominal binder over the top. EXTREMITIES: Without peripheral edema. DISPOSITION: Discharged to home. CONDITION: Stable and improving. FOLLOWUP: Followup appointment with Av Cobian MD, on 01/19/2019 at 10 a.m. HOME MEDICATIONS: 1. Percocet 5/325 mg 1 to 2 every 4 hours p.r.n. pain #40. 2. Flexeril 10 mg q.6 hours p.r.n. muscle spasms #30. 3. Motrin 600 mg oral q.6 hours #40. 4. Discontinue taking the tramadol while taking the Percocet. Resume home medications of: 1. Colace 100 mg b.i.d. 2. Zofran 4 mg oral q.8 hours p.r.n. nausea. DISCHARGE INSTRUCTIONS: Diet after discharge: Regular diet. Drink 8 to 10 glasses of water a day. Other activity: No lifting greater than 10 pounds for 6 weeks. Driving: Do not drive for 1 week and while on narcotic pain medication. Shower/bathing: May shower. Notify provider if any fever, increased pain, nausea, or vomiting. Keep site clean and dry. Wear abdominal binder with pressure dressing over the right lower quadrant suture area for 2 weeks. Use incentive spirometer 10 times every hour while awake.
--- NOTE | 2019-01-18 15:19 | OR ---
DATE OF PROCEDURE: 01/13/2019 SURGEON: Av Cobian MD PREOPERATIVE DIAGNOSIS: Incarcerated right spigelian hernia. POSTOPERATIVE DIAGNOSES: 1. Incarcerated right spigelian hernia. 2. Recurrent incarcerated incisional hernia with adherent cecum within hernia. OPERATIVE PROCEDURES: 1. Diagnostic laparoscopy with lysis of adhesions: a. Resection of portion of the cecum that was deserosalized, status post takedown of incarcerated recurrent incisional hernia (59140). b. Repair of incarcerated recurrent incisional hernia with mesh ([id number]). c. Repair of incarcerated spigelian hernia with mesh ([id number]). d. Placement of Interceed mesh to separate pelvic and abdominal wall from underlying viscera to limit recurrent adhesion formation ([id number]). ANESTHESIA: General. CLINICAL RESEARCH NURSE COORDINATOR: Consuelo Varela PA-C. INDICATIONS FOR PROCEDURE: This is a 53-year-old presenting to the emergency room over the weekend with increasing pain in the right lower abdomen. On CT scan, she was felt to have an incarcerated spigelian hernia. Plan is to proceed with diagnostic laparoscopy, laparotomy if necessary, and repair of the hernia or hernias with mesh. Potential risks including bleeding, infection, injury to underlying viscera, possible need for open laparotomy, problems with mesh becoming infected or hernia recurring, as well as persistent chronic pain following the procedure, were all gone over, and the patient wishes to proceed. DETAILS OF PROCEDURE: The patient was taken to the operating room and placed in a supine position. After general endotracheal anesthesia was induced, a Davis catheter was inserted and the abdomen was prepped and draped. In the right upper quadrant, a transverse incision was made and peritoneal cavity entered under direct vision with an Optiview trocar and inflated to 15 mmHg pressure with CO2. Laparoscope was then reinserted. No underlying trocar insertion site injuries were seen. Following this, eventually, 4 additional trocars were placed across the upper and mid abdomen. The patient initially was noted to have quite a bit in way of adhesions between the periumbilical mesh and omentum. These were then taken down with Harmonic scalpel. As one further dissected, it became evident the spigelian hernia as seen had some incarcerated omentum within it. This was reduced with external pressure and Harmonic scalpel dissection. This defect was fairly small, measuring roughly the size of a pencil tip. The patient was noted to have larger more complex hernia in the suprapubic area extending somewhat to the right of the midline. This had 2 separate components with some intact mesh in between the 2 points, 1 more or less directly suprapubic and then as we went toward the right, had an area of intact mesh and fascia and then an additional hernia toward the right of that bridge of tissue. The latter contained some fairly densely incarcerated cecum. This was dissected free using a combination of cautery and blunt dissection. The cecum did eventually come free from that area without , but there was obviously quite a bit in the way of deserosalization and a potential for this to leak. This was away from the ileocecal valve, such that this area of deserosalization was easily resected by means of SYLVIA purple loads. At the conclusion of the procedure, this area was reinforced with some fibrin sealant and also covered with some omentum. At this point, with the hernias having been dissected out, a Ventralight ST mesh with 5.2 cm umatilla tribe was selected. This was measured and secured to provide good coverage to both areas of herniation. This was soaked with a meropenem and Zyvox containing saline solution. With this procedure thus far being quite clean and the polypropylene mesh being deployed, it was felt to be relatively safe to place this mesh with the colon resection having been done previously in a very clean manner, as to not do so would almost certainly result in recurrence of the hernia. The pressure in the abdomen was at this point then reduced and the incisional hernia was closed with some interrupted #1 Vicryl sutures. This allowed general approximation of the hernia defects over the center of the incisional hernia, and this did also provided overlap of the overlying spigelian hernia. The Ventralight ST mesh was centered as the balloon catheter of the system was pulled up through the stab wound in the anterior abdominal wall. This balloon was then inflated and this confirmed to provide adequate coverage to both areas of herniation, and this was fixed circumferentially with titanium tacking screws. Interceed mesh was then placed underneath the newly placed mesh down to the pelvis and up against the abdominal wall. Prior to this being placed, the omentum was then also brought down into that area, and the abdomen irrigated with additional meropenem and Zyvox containing saline solution. At that point, the peritoneal cavity was deflated. The incisions were closed with 0 Vicryl stitch at the fascia level and the skin with 4-0 Vicryl skin stitch. Bilateral transversus abdominis plane blocks had also been placed and the wounds anesthetized with 0.5% Marcaine as well, and the patient taken to the recovery room in satisfactory condition. Physician assistant import manager, Consuelo Varela, played an essential role in assisting in this case, helping to position the patient, retract structures as needed, as well as suturing and cutting sutures when indicated. Her presence improved the patient's safety and decreased the operative time. Av Cobian MD /[id number]
== END 2019-01-14 09:00 | disposition home or self-care (01) | DRG 330 ==
LOC: JP.SDS 08:25 → JP.SDSSCHI 08:25 → EDSTATUS 11:45 → JP.2SS 14:20
PROVIDERS: ADMIT Surgery; ATTEND Surgery
PROC: 0WUF4JZ Supplement Abdominal Wall with Synthetic Substitute, Percutaneous Endoscopic Approach (ICD-10-PCS; principal; 2019-01-13)
PROC: 0DU Gastrointestinal System, Supplement (ICD-10-PCS; principal; 2019-01-13)
PROC: 0DNW4ZZ Release Peritoneum, Percutaneous Endoscopic Approach (ICD-10-PCS; principal; 2019-01-13)
PROC: 0DBH4ZZ Excision of Cecum, Percutaneous Endoscopic Approach (ICD-10-PCS; principal; 2019-01-13)
DX: K43.6 Other and unspecified ventral hernia with obstruction, without gangrene (principal); K91.71 Accidental puncture and laceration of a digestive system organ or structure during a digestive system procedure; K43.0 Incisional hernia with obstruction, without gangrene; K66.0 Peritoneal adhesions (postprocedural) (postinfection); H54.7 Unspecified visual loss; M79.7 Fibromyalgia; F41.9 Anxiety disorder, unspecified; Z90.49 Acquired absence of other specified parts of digestive tract; Z90.710 Acquired absence of both cervix and uterus; Z91.040 Latex allergy status; Y83.8 Other surgical procedures as the cause of abnormal reaction of the patient, or of later complication, without mention of misadventure at the time of the procedure
CPT/HCPCS: 88307; 88341; 88342; 94640; 94762; A9270-GY; C1713; C1781; C9113; J0171; J0690; J0694; J1100; J1170; J2020; J2185; J2405; J2704; J2710; J2795; J3010; J3410; J3490; J7042; J7050; J7120; J7620-GY

== ENCOUNTER 2020-03-03 09:58 | Emergency (ER) | payer MEDICARE, OTHER ==
[2020-03-03] MEDS ORDERED: Sodium Chloride 0.9% 10 ML Syringe FLUSH PRN (11:23)
[2020-03-03] MEDS ORDERED: HYDROmorphone 0.5 MG/0.5 ML Syringe IVPUSH ONE (11:25)
[2020-03-03] MEDS ORDERED: Ondansetron 4 MG/2 ML SDV IVPUSH ONE (11:25)
[2020-03-03] MEDS ORDERED: Sodium Chloride 0.9% 1,000 ML IV SCH ×2 (11:30→14:15)
--- NOTE | 2020-03-03 11:33 | EDM.PDOC ---
ED HPI GENERAL MEDICAL PROBLEM - General Chief Complaint: Abdominal Pain Stated Complaint: PAIN ON RIGHT SIDE AND DOWN THE LEG Time Seen by Provider: 03/03/20 11:10 Source of Information: Reports: Patient History Limitations: Reports: No Limitations - History of Present Illness INITIAL COMMENTS - FREE TEXT/NARRATIVE: Darlene is an alert 54 year old female with extensive abdominal surgical history and known internal hernia with recurrent surgery for SBO and hernia repair with mesh. Darlene presents to [facility] ER for 2 week onset of progressive worsen right mid and lower abdominal pain which radiates into her groin and mid/lower back. Darlene has known irregular stools mostly constipation and took laxative with being on chronic Erythromycin for SB bacterial over growth. Darlene [id number] pain and intermittent, cramping and severe with nausea, decreased appetite with out vomiting this am. Darlene attempted to eat but it did not go well this am. Darlene took her MVIs and Erythromycin this am and tried her medical marijuana which did not improver her symptoms. Darlene reports has chronic abdominal pain which never resolves but more severe today. Darlene has significant pressure and pain right mid abdomen which she has been told the location of a partial hernia in November/December. Right Lower Abdomen Pain Score (Numeric/FACES): 8 - Related Data Allergies Allergy/AdvReac Type Severity Reaction Status Date / Time latex Allergy Rash Verified 01/13/19 09:05 Home Meds: Home Meds Docusate Sodium 100 mg PO BID PRN 01/13/19 [History] Cyclobenzaprine [Flexeril] 10 mg PO Q6H PRN #30 tablet 01/14/19 [Rx] Ibuprofen [Motrin] 600 mg PO Q6H PRN #40 tablet 01/14/19 [Rx] Azithromycin 250 mg PO DAILY 03/03/20 [History] Past Medical History - Past Health History Medical/Surgical History: Denies Medical/Surgical History HEENT History: Reports: Allergic Rhinitis, Impaired Vision Other HEENT History: wears glasses Cardiovascular History: Reports: None Respiratory History: Reports: Bronchitis, Recurrent Gastrointestinal History: Reports: Bowel Obstruction, Cholelithiasis, Other (See Below) Other Gastrointestinal History: right inguinal hernia Hematoma removed from groin Hernia surgery x8. 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: Reports: Dysfunctional Uterine Bleeding, Endometriosis, Fi broids, , Spontaneous Other UNIFORM ROOM ATTENDANT History: "tumor in uterus" Musculoskeletal History: Reports: Fibromyalgia Neurological History: Reports: None Psychiatric History: Reports: Anxiety, Panic Attack Endocrine/Metabolic History: Reports: None Hematologic History: Reports: None Immunologic History: Reports: None Oncologic (Cancer) History: Reports: None Dermatologic History: Reports: None - Infectious Disease History Infectious Disease History: Reports: Chicken Pox - Past Surgical History HEENT Surgical History: Reports: Tonsillectomy Respiratory Surgical History: Reports: None GI Surgical History: Reports: Cholecystectomy, Hernia, Inguinal, Hernia Repair/Other Female Surgical History: Reports: Section, D&C, Hysterectomy, Salpingo-Oophorectomy, Tubal Ligation Neurological Surgical History: Reports: None Musculoskeletal Surgical History: Reports: Other (See Below) Other Musculoskeletal Surgeries/Procedures:: ankle fracture with pins placed ulnar nerve left Dermatological Surgical History: Reports: Skin Biopsy Social & Family History - Family History Family Medical History: Noncontributory HEENT: Reports: Impaired Vision Cardiac: Reports: Heart Failure Respiratory: Reports: COPD GI: Reports: None : Reports: None OBGYN: Reports: None Musculoskeletal: Reports: Fibromyalgia Neurological: Reports: None Psychiatric: Reports: Anxiety, Depression, Panic Attack Endocrine/Metabolic: Reports: Diabetes, type II Hematologic: Reports: None Immunologic: Reports: None Dermatologic: Reports: None Oncologic: Reports: Ovarian - Tobacco Use Smoking Status *Q: Current Every Day Smoker Years of Tobacco use: 20 Packs/Tins Daily: 0.5 - Caffeine Use Caffeine Use: Reports: Coffee Other Caffeine Use: 6 cups a day - Recreational Drug Use Recreational Drug Use: Yes Drug Use in Last 12 Months: Yes Recreational Drug Type: Reports: Other (see below) Other Recreational Drug Type: medical canabis ED ROS GENERAL - Review of Systems Review Of Systems: Comprehensive ROS is negative, except as noted in HPI. ED EXAM, GI/ABD - Physical Exam Exam: See Below Exam Limited By: No Limitations General Appearance: Moderate Distress Eyes: Bilateral: Normal Appearance, EOMI Throat/Mouth: Normal Inspection, Normal Lips, Normal Teeth, Normal Gums, Normal Oropharynx, Normal Voice, No Airway Compromise Respiratory/Chest: No Respiratory Distress, Lungs Clear, Normal Breath Sounds, No Accessory Muscle Use, Chest Non-Tender Cardiovascular: Normal Peripheral Pulses, Regular Rate, Rhythm, No Edema, No Gallop, No Murmur GI/Abdominal Exam: Soft, Tender (diffuse no focal discomfort), Abnormal Bowel Sounds (hypoactive) (Female) Exam: Deferred Rectal (Female) Exam: Deferred Extremities: Normal Inspection, Normal Range of Motion Neurological: Alert, Oriented, CN II-XII Intact, Normal Cognition, No Motor/Sensory Deficits Psychiatric: Normal Affect, Normal Mood Skin Exam: Warm, Dry, Intact, Normal Color, No Rash Course - Vital Signs Last Recorded V/S: Last Vital Signs Temp 36.3 C 03/03/20 11:17 Pulse 80 03/03/20 11:17 Resp 17 03/03/20 11:17 BP 144/81 H 03/03/20 11:17 Pulse Ox 96 03/03/20 11:17 - Orders/Labs/Meds Orders: Active Orders 24 hr Category Date Time Status Peripheral IV Care [RC] . DIRECTED Care 03/03/20 11:24 Active Sodium Chloride 0.9% [Normal Saline] 1,000 ml Med 03/03/20 11:30 Active IV ASDIRECTED Sodium Chloride 0.9% [Saline Flush] Med 03/03/20 11:23 Active 10 ml FLUSH ASDIRECTED PRN Peripheral IV Insertion Adult [OM.PC] Urgent Oth 03/03/20 11:24 Ordered Medication Orders Sodium Chloride (Normal Saline) 1,000 mls @ 500 mls/hr IV ASDIRECTED [facility] Last Admin: 03/03/20 11:41 Dose: 500 mls/hr Documented by: SANNA Sodium Chloride (Saline Flush) 10 ml FLUSH ASDIRECTED PRN PRN Reason: Keep Vein Open Labs: Laboratory Tests 03/03/20 03/03/20 03/03/20 Range/Units 11:38 11:38 11:38 WBC 6.8 (4.5-11.0) K/uL RBC 5.51 H (3.30-5.50) M/uL Hgb 16.5 H (12.0-15.0) g/dL Hct 50.9 H (36.0-48.0) % MCV 92 (80-98) fL MCH 30 (27-31) pg MCHC 32 (32-36) % Plt Count 150 (150-400) K/uL Neut % (Auto) 48 (36-66) % Lymph % (Auto) 40 (24-44) % [facility] % (Auto) 9 H (2-6) % Eos % (Auto) 1 L (2-4) % Baso % (Auto) 1 (0-1) % Sodium 143 (140-148) mmol/L Potassium 5.0 (3.6-5.2) mmol/L Chloride 107 (100-108) mmol/L Carbon Dioxide 24 (21-32) mmol/L Anion Gap 12.4 (5.0-14.0) mmol/L BUN 10 D (7-18) mg/dL Creatinine 0.7 (0.6-1.0) mg/dL Est Cr Clr Drug Dosing 81.71 mL/min Estimated GFR (MDRD) > 60 (>60) Glucose 84 (74-106) mg/dL Lactic Acid (0.4-2.0) mmol/L Calcium 9.6 (8.5-10.1) mg/dL Total Bilirubin 0.3 (0.2-1.0) mg/dL Direct Bilirubin 0.11 (0.0-0.2) mg/dL Indirect Bilirubin 0.19 AST 37 (15-37) U/L ALT 32 (12-78) U/L Alkaline Phosphatase 104 (46-116) U/L C-Reactive Protein 0.31 H (0.0-0.3) mg/dL Total Protein 8.4 H (6.4-8.2) g/dL Albumin 4.2 (3.4-5.0) g/dL Globulin 4.2 H (2.3-3.5) g/dL Albumin/Globulin Ratio 1.0 L (1.2-2.2) Lipase 140 (73-393) U/L Urine Color (YELLOW) Urine Appearance (CLEAR) Urine pH (5.0-8.0) Ur Specific Brooks (1.008-1.030) Urine Protein (NEGATIVE) mg/dL Urine Glucose (UA) (NEGATIVE) mg/dL Urine Ketones (NEGATIVE) mg/dL Urine Occult Blood (NEGATIVE) Urine Nitrite (NEGATIVE) Urine Bilirubin (NEGATIVE) Urine Urobilinogen (0.2-1.0) EU/dL Ur Leukocyte Esterase (NEGATIVE) Urine RBC (0-5) Urine WBC (0-5) Ur Epithelial Cells Amorphous Sediment Urine Bacteria Urine Mucus 09/19/20 09/19/20 Range/Units 11:38 11:45 WBC (4.5-11.0) K/uL RBC (3.30-5.50) M/uL Hgb (12.0-15.0) g/dL Hct (36.0-48.0) % MCV (80-98) fL MCH (27-31) pg MCHC (32-36) % Plt Count (150-400) K/uL Neut % (Auto) (36-66) % Lymph % (Auto) (24-44) % [facility] % (Auto) (2-6) % Eos % (Auto) (2-4) % Baso % (Auto) (0-1) % Sodium (140-148) mmol/L Potassium (3.6-5.2) mmol/L Chloride (100-108) mmol/L Carbon Dioxide (21-32) mmol/L Anion Gap (5.0-14.0) mmol/L BUN (7-18) mg/dL Creatinine (0.6-1.0) mg/dL Est Cr Clr Drug Dosing mL/min Estimated GFR (MDRD) (>60) Glucose (74-106) mg/dL Lactic Acid 2.9 H (0.4-2.0) mmol/L Calcium (8.5-10.1) mg/dL Total Bilirubin (0.2-1.0) mg/dL Direct Bilirubin (0.0-0.2) mg/dL Indirect Bilirubin AST (15-37) U/L ALT (12-78) U/L Alkaline Phosphatase (46-116) U/L C-Reactive Protein (0.0-0.3) mg/dL Total Protein (6.4-8.2) g/dL Albumin (3.4-5.0) g/dL Globulin (2.3-3.5) g/dL Albumin/Globulin Ratio (1.2-2.2) Lipase (73-393) U/L Urine Color Yellow (YELLOW) Urine Appearance Clear (CLEAR) Urine pH 5.5 (5.0-8.0) Ur Specific Brooks >= 1.030 (1.008-1.030) Urine Protein Negative (NEGATIVE) mg/dL Urine Glucose (UA) Negative (NEGATIVE) mg/dL Urine Ketones Negative (NEGATIVE) mg/dL Urine Occult Blood Negative (NEGATIVE) Urine Nitrite Negative (NEGATIVE) Urine Bilirubin Negative (NEGATIVE) Urine Urobilinogen 0.2 (0.2-1.0) EU/dL Ur Leukocyte Esterase Negative (NEGATIVE) Urine RBC 0-5 (0-5) Urine WBC 0-5 (0-5) Ur Epithelial Cells Moderate Amorphous Sediment Not seen Urine Bacteria Not seen Urine Mucus Moderate Meds: Medications Generic Name Dose Route Start Last Admin Trade Name Freq PRN Reason Stop Dose Admin Sodium Chloride 1,000 mls @ 500 mls/hr 03/03/20 11:30 03/03/20 11:41 Normal Saline IV 500 mls/hr ASDIRECTED SHILO Administration Sodium Chloride 10 ml 03/03/20 11:23 Saline Flush FLUSH ASDIRECTED PRN Keep Vein Open Discontinued Medications Generic Name Dose Route Start Last Admin Trade Name Freq PRN Reason Stop Dose Admin Droperidol 1.25 mg 03/03/20 13:17 03/03/20 13:48 Inapsine IVPUSH 03/03/20 13:18 1.25 mg ONETIME ONE Administration Fentanyl 50 mcg 03/03/20 13:13 03/03/20 13:49 Sublimaze IVPUSH 03/03/20 13:14 50 mcg ONETIME ONE Administration Hydromorphone HCl 0.5 mg 03/03/20 11:25 03/03/20 11:42 Dilaudid IVPUSH 03/03/20 11:26 0.5 mg ONETIME ONE Administration Ondansetron HCl 4 mg 03/03/20 11:25 03/03/20 11:41 Zofran IVPUSH 03/03/20 11:26 4 mg ONETIME ONE Administration - Radiology Interpretation Free Text/Narrative:: Discuss CT scan vs plain films to further evaluation acute exacerbation of chronic recurrent abdominal pain. Darlene report more than 30 CT scans and would prefer to proceed with Abd x rays at this time. - Re-Assessments/Exams Free Text/Narrative Re-Assessment/Exam: Spoke to Dr Cobian regarding severity of patient symptoms dilated small loop of bowel right mid abdomen with elevated Lactic acid. Dr Cobian requested hospitalist admission with Gen Surg consultation. NG if vomiting occurs. Consider CT abd/pelvis at 5 am for evaluation of progression of obstruction or worsening lactic acid which may necessitate surgical intervention. 03/03/20 12:58 Spoke to Hospitalist whom deferred admission to primary care provider whom offers inpatietn care. Dr Tristian Simmons was contacted regarding admission request per Dr Cobian, Gen Surgeon. NPO, IVF pain mangement for further imaging if no symptoms resolution, CT at 5 am requested. 03/03/20 13:45 Departure - Departure Time of Disposition: 13:57 Disposition: Admitted As Inpatient 65 Clinical Impression: Abdominal pain, Small bowel obstruction - Discharge Information Referrals: Tristian Simmons Sr, MD [Primary Care Provider] - Forms: ED Department Discharge Sepsis Event Note (ED) - Evaluation Sepsis Screening Result: No Definite Risk - Focused Exam Vital Signs: Vital Signs Temp Pulse Resp BP Pulse Ox 03/03/20 11:17 36.3 C 80 17 144/81 H 96 03/03/20 10:16 36.3 C 80 17 144/81 H 96 - My Orders Last 24 Hours: My Active Orders 03/03/20 11:23 Sodium Chloride 0.9% [Saline Flush] 10 ml FLUSH ASDIRECTED PRN 03/03/20 11:24 Peripheral IV Care [RC] . DIRECTED Peripheral IV Insertion Adult [OM.PC] Urgent 03/03/20 11:30 Sodium Chloride 0.9% [Normal Saline] 1,000 ml IV ASDIRECTED - Assessment/Plan Last 24 Hours: My Active Orders 03/03/20 11:23 Sodium Chloride 0.9% [Saline Flush] 10 ml FLUSH ASDIRECTED PRN 03/03/20 11:24 Peripheral IV Care [RC] . DIRECTED Peripheral IV Insertion Adult [OM.PC] Urgent 03/03/20 11:30 Sodium Chloride 0.9% [Normal Saline] 1,000 ml IV ASDIRECTED
--- NOTE | 2020-03-03 12:58 | CRLCR ---
INDICATION: Abdominal pain, evaluate for obstruction. TECHNIQUE: Single view of the chest and four supine radiographs of the abdomen COMPARISON: None FINDINGS: Chest: The heart size and central vascular pattern are within the normal range. The lungs are clear. No pleural effusions are identified. Abdomen: There is a nonspecific bowel gas pattern with no evidence for bowel obstruction or free intraperitoneal air. Surgical clips in the right upper abdomen suggest prior cholecystectomy. Numerous surgical anchors are present overlying the pelvis and likely are within the abdominal wall. IMPRESSION: No acute abnormality is evident with other findings as discussed above. Dictated by Fish Kowalski MD @ Mar 03 2020 12:49PM Signed by Dr. Fish Kowalski @ Mar 03 2020 12:56PM
[2020-03-03] MEDS ORDERED: fentaNYL 100 MCG/2 ML SDV IVPUSH ONE (13:13)
[2020-03-03 14:43] VITALS: BP 130/52; PULSE 75
--- NOTE | 2020-03-03 15:09 | PCM.HP.2 ---
H&P History of Present Illness - General Date of Service: 03/03/20 Source of Information: Patient History Limitations: Reports: No Limitations - History of Present Illness Initial Comments - Free Text/Narative: Started to have increase abd. pain and pressure 8 days ago without change in BM. Urine passage no problem. N without vomiting. [place] no fever. Feels very tired. Duration of Symptoms: Reports: Recurring Location: Reports: Abdomen Severity: Moderate Improves with: Reports: None Worsens with: Reports: None Right Lower Abdomen Pain Score (Numeric/FACES): 8 - Related Data Allergies/Adverse Reactions: Allergies Allergy/AdvReac Type Severity Reaction Status Date / Time latex Allergy Rash Verified 01/13/19 09:05 Home Medications: Home Meds Docusate Sodium 100 mg PO BID PRN 01/13/19 [History] Cyclobenzaprine [Flexeril] 10 mg PO Q6H PRN #30 tablet 01/14/19 [Rx] Ibuprofen [Motrin] 600 mg PO Q6H PRN #40 tablet 01/14/19 [Rx] Azithromycin 250 mg PO DAILY 03/03/20 [History] Past Medical History - Past Health History Medical/Surgical History: Denies Medical/Surgical History HEENT History: Reports: Allergic Rhinitis, Impaired Vision Other HEENT History: wears glasses Cardiovascular History: Reports: None Respiratory History: Reports: Bronchitis, Recurrent Gastrointestinal History: Reports: Bowel Obstruction, Cholelithiasis, Other (See Below) Other Gastrointestinal History: right inguinal hernia Hematoma removed from groin Hernia surgery x8. 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, Endometriosis, Fibroids, , Spontaneous Other OB/BYN History: "tumor in uterus" Musculoskeletal History: Reports: Fibromyalgia Neurological History: Reports: None Psychiatric History: Reports: Anxiety, Panic Attack Endocrine/Metabolic History: Reports: None Hematologic History: Reports: None Immunologic History: Reports: None Oncologic (Cancer) History: Reports: None Dermatologic History: Reports: None - Infectious Disease History Infectious Disease History: Reports: Chicken Pox - Past Surgical History HEENT Surgical History: Reports: Tonsillectomy Respiratory Surgical History: Reports: None GI Surgical History: Reports: Cholecystectomy, Hernia, Inguinal, Hernia Repair/Other Female Surgical History: Reports: Section, D&C, Hysterectomy, Salp ingo-Oophorectomy, Tubal Ligation Neurological Surgical History: Reports: None Musculoskeletal Surgical History: Reports: Other (See Below) Other Musculoskeletal Surgeries/Procedures:: ankle fracture with pins placed ulnar nerve left Dermatological Surgical History: Reports: Skin Biopsy Social & Family History - Family History Family Medical History: Noncontributory HEENT: Reports: Impaired Vision Cardiac: Reports: Heart Failure Respiratory: Reports: COPD GI: Reports: None : Reports: None OBGYN: Reports: None Musculoskeletal: Reports: Fibromyalgia Neurological: Reports: None Psychiatric: Reports: Anxiety, Depression, Panic Attack Endocrine/Metabolic: Reports: Diabetes, type II Hematologic: Reports: None Immunologic: Reports: None Dermatologic: Reports: None Oncologic: Reports: Ovarian - Tobacco Use Smoking Status *Q: Current Every Day Smoker Years of Tobacco use: 20 Packs/Tins Daily: 0.5 - Caffeine Use Caffeine Use: Reports: Coffee Other Caffeine Use: 6 cups a day - Recreational Drug Use Recreational Drug Use: Yes Drug Use in Last 12 Months: Yes Recreational Drug Type: Reports: Other (see below) Other Recreational Drug Type: medical canabis H&P Review of Systems - Review of Systems: Review Of Systems: See Below General: Reports: Chills, Fatigue, Decreased Appetite HEENT: Reports: No Symptoms Pulmonary: Reports: No Symptoms Cardiovascular: Reports: No Symptoms Gastrointestinal: Reports: Abdominal Pain, Distension, Nausea Genitourinary: Reports: No Symptoms Musculoskeletal: Reports: No Symptoms Skin: Reports: No Symptoms Psychiatric: Reports: No Symptoms Neurological: Reports: Headache Exam - Exam Exam: See Below - Vital Signs Vital Signs: Last Vital Signs Temp 97.4 F 03/03/20 11:17 Pulse 75 03/03/20 14:38 Resp 17 03/03/20 11:17 BP 130/52 L 03/03/20 14:38 Pulse Ox 98 03/03/20 14:38 Weight: 168 lb 3.403 oz - Exam General: Alert, Oriented, 4 Neck: Supple, Trachea Midline, 2 Lungs: Clear to Auscultation, Normal Respiratory Effort Cardiovascular: Regular Rate, Regular Rhythm GI/Abdominal Exam: Soft, No Distention, Tender Back Exam: Normal Inspection, Full Range of Motion, NT Extremities: Normal Inspection, Normal Range of Motion, Non-Tender Peripheral Pulses: 1+: Radial (L), Radial (R) Skin: Warm, Dry, Intact Neurological: Cranial Nerves Intact, Reflexes Equal Bilateral Neuro Extensive - Mental Status: Alert, Oriented x3, Normal Mood/Affect, Normal Cognition Neuro Extensive - Motor, Sensory, Reflexes: CN II-XII Intact, Normal Gait, Normal Reflexes DTR: 1+: Bicep (L), Bicep (R) Psychiatric: Alert, Normal Affect, Normal Mood - Patient Data Lab Results Last 24 hrs: Laboratory Results - last 24 hr 03/03/20 03/03/20 03/03/20 Range/Units 11:38 11:38 11:38 WBC 6.8 (4.5-11.0) K/uL RBC 5.51 H (3.30-5.50) M/uL Hgb 16.5 H (12.0-15.0) g/dL Hct 50.9 H (36.0-48.0) % MCV 92 (80-98) fL MCH 30 (27-31) pg MCHC 32 (32-36) % Plt Count 150 (150-400) K/uL Neut % (Auto) 48 (36-66) % Lymph % (Auto) 40 (24-44) % [place] % (Auto) 9 H (2-6) % Eos % (Auto) 1 L (2-4) % Baso % (Auto) 1 (0-1) % Sodium 143 (140-148) mmol/L Potassium 5.0 (3.6-5.2) mmol/L Chloride 107 (100-108) mmol/L Carbon Dioxide 24 (21-32) mmol/L Anion Gap 12.4 (5.0-14.0) mmol/L BUN 10 D (7-18) mg/dL Creatinine 0.7 (0.6-1.0) mg/dL Est Cr Clr Drug Dosing 81.71 mL/min Estimated GFR (MDRD) > 60 (>60) Glucose 84 (74-106) mg/dL Lactic Acid (0.4-2.0) mmol/L Calcium 9.6 (8.5-10.1) mg/dL Total Bilirubin 0.3 (0.2-1.0) mg/dL Direct Bilirubin 0.11 (0.0-0.2) mg/dL Indirect Bilirubin 0.19 AST 37 (15-37) U/L ALT 32 (12-78) U/L Alkaline Phosphatase 104 (46-116) U/L C-Reactive Protein 0.31 H (0.0-0.3) mg/dL Total Protein 8.4 H (6.4-8.2) g/dL Albumin 4.2 (3.4-5.0) g/dL Globulin 4.2 H (2.3-3.5) g/dL Albumin/Globulin Ratio 1.0 L (1.2-2.2) Lipase 140 (73-393) U/L Urine Color (YELLOW) Urine Appearance (CLEAR) Urine pH (5.0-8.0) Ur Specific [place] (1.008-1.030) Urine Protein (NEGATIVE) mg/dL Urine Glucose (UA) (NEGATIVE) mg/dL Urine Ketones (NEGATIVE) mg/dL Urine Occult Blood (NEGATIVE) Urine Nitrite (NEGATIVE) Urine Bilirubin (NEGATIVE) Urine Urobilinogen (0.2-1.0) EU/dL Ur Leukocyte Esterase (NEGATIVE) Urine RBC (0-5) Urine WBC (0-5) Ur Epithelial Cells Amorphous Sediment Urine Bacteria Urine Mucus 03/03/20 03/03/20 Range/Units 11:38 11:45 WBC (4.5-11.0) K/uL RBC (3.30-5.50) M/uL Hgb (12.0-15.0) g/dL Hct (36.0-48.0) % MCV (80-98) fL MCH (27-31) pg MCHC (32-36) % Plt Count (150-400) K/uL Neut % (Auto) (36-66) % Lymph % (Auto) (24-44) % [place] % (Auto) (2-6) % Eos % (Auto) (2-4) % Baso % (Auto) (0-1) % Sodium (140-148) mmol/L Potassium (3.6-5.2) mmol/L Chloride (100-108) mmol/L Carbon Dioxide (21-32) mmol/L Anion Gap (5.0-14.0) mmol/L BUN (7-18) mg/dL Creatinine (0.6-1.0) mg/dL Est Cr Clr Drug Dosing mL/min Estimated GFR (MDRD) (>60) Glucose (74-106) mg/dL Lactic Acid 2.9 H (0.4-2.0) mmol/L Calcium (8.5-10.1) mg/dL Total Bilirubin (0.2-1.0) mg/dL Direct Bilirubin (0.0-0.2) mg/dL Indirect Bilirubin AST (15-37) U/L ALT (12-78) U/L Alkaline Phosphatase (46-116) U/L C-Reactive Protein (0.0-0.3) mg/dL Total Protein (6.4-8.2) g/dL Albumin (3.4-5.0) g/dL Globulin (2.3-3.5) g/dL Albumin/Globulin Ratio (1.2-2.2) Lipase (73-393) U/L Urine Color Yellow (YELLOW) Urine Appearance Clear (CLEAR) Urine pH 5.5 (5.0-8.0) Ur Specific [place]us >= 1.030 (1.008-1.030) Urine Protein Negative (NEGATIVE) mg/dL Urine Glucose (UA) Negative (NEGATIVE) mg/dL Urine Ketones Negative (NEGATIVE) mg/dL Urine Occult Blood Negative (NEGATIVE) Urine Nitrite Negative (NEGATIVE) Urine Bilirubin Negative (NEGATIVE) Urine Urobilinogen 0.2 (0.2-1.0) EU/dL Ur Leukocyte Esterase Negative (NEGATIVE) Urine RBC 0-5 (0-5) Urine WBC 0-5 (0-5) Ur Epithelial Cells Moderate Amorphous Sediment Not seen Urine Bacteria Not seen Urine Mucus Moderate Result Diagrams: 03/03/20 11:38 03/03/20 11:38 Sepsis Event Note - Evaluation Sepsis Screening Result: No Definite Risk - Focused Exam Vital Signs: Vital Signs Temp Pulse Resp BP Pulse Ox 03/03/20 14:38 75 130/52 L 98 03/03/20 14:20 140/85 03/03/20 11:17 97.4 F 80 17 144/81 H 96 03/03/20 10:16 97.4 F 80 17 144/81 H 96 Problem List Initiated/Reviewed/Updated: Yes Orders Last 24hrs: Active Orders 24 hr Category Date Time Status Peripheral IV Care [RC] . DIRECTED Care 03/03/20 11:24 Active Sodium Chloride 0.9% [Normal Saline] 1,000 ml Med 03/03/20 11:30 Active IV ASDIRECTED Sodium Chloride 0.9% [Normal Saline] 1,000 ml Med 03/03/20 14:15 Active IV ASDIRECTED Sodium Chloride 0.9% [Saline Flush] Med 03/03/20 11:23 Active 10 ml FLUSH ASDIRECTED PRN Peripheral IV Insertion Adult [OM.PC] Urgent Oth 03/03/20 11:24 Ordered Medication Orders Sodium Chloride (Normal Saline) 1,000 mls @ 500 mls/hr IV ASDIRECTED SHILO Last Admin: 03/03/20 11:41 Dose: 500 mls/hr Documented by: GABINODEMilady Sodium Chloride (Normal Saline) 1,000 mls @ 250 mls/hr IV ASDIRECTED SHILO Last Admin: 03/03/20 14:20 Dose: 250 mls/hr Documented by: GABINODEMilady Sodium Chloride (Saline Flush) 10 ml FLUSH ASDIRECTED PRN PRN Reason: Keep Vein Open Assessment/Plan Comment:: Assessment/Plan: #1. Recurrent Abd pain due to adhesions caused by multiple surgeries. X-ray shows no major abstruction with gas throughout the colon. WBC and HB acceptable. I see no readson for admission at the present time. Will discharge home. - Mortality Measure Prognosis:: Good
--- NOTE | 2020-03-06 12:45 | CONS ---
DATE OF SERVICE: 03/06/2020 REFERRING PHYSICIAN: CONSULTING PHYSICIAN: Erick Beal MD REASON FOR CONSULTATION: Abdominal pain. HISTORY OF PRESENT ILLNESS: A 54-year-old female who has had an extensive abdominal surgical history including at least 15 abdominal surgeries. The patient has had multiple surgeries in multiple locations including larger surgical facilities. At present, her pain as she describes is constant for the last 1 year or so. However, this is slightly more acute at this time. She has been admitted under Dr. Simmons's medical service and consultation is to evaluate if any surgical intervention is needed at this time. Pain is 7 to 8/10. PAST MEDICAL HISTORY: Multiple hernia repairs, bronchitis, multiple bowel obstructions, cholelithiasis, right inguinal hernia repair surgeries x8, dysfunctional uterine bleeding, fibroids, fibromyalgia, chronic pain, anxiety, panic attacks, gallbladder removal, hernias as described above, and orthopedic surgeries related to her ankle. REVIEW OF SYSTEMS: GENERAL: The patient is appropriate for condition. She does relate chronic pain which has not changed significantly in this hospitalization. CARDIOVASCULAR: No history of myocardial infarction. RESPIRATORY: History of bronchitis. GASTROINTESTINAL: Had 2 bowel movements in the last 24 hours. GENITOURINARY: No dysuria. She has not had any problems with urination in the last 24 hours per her report. NEUROLOGIC: Oriented. PSYCHIATRIC: History of anxiety. Appears to be stable at this moment. The remainder of review of systems was reviewed and is negative. PHYSICAL EXAMINATION: VITAL SIGNS: Temperature 97.1, blood pressure 109/49, respirations 18, 98% on room air. GENERAL: The patient is resting. HEENT: Pupils are equal. NECK: Supple. LUNGS: Clear. CARDIOVASCULAR: Regular rhythm and rate. ABDOMEN: Flat. Minimal pain with palpation right abdomen. No rebound. No guarding. NEUROLOGICAL: Alert and oriented x3. PSYCHIATRIC: No gross depression. LABORATORY RESULTS: Show a normal white blood cell count. Basically a normal basic metabolic panel. IMAGING DATA: I did review the abdominal x-ray from this morning, which shows a nonacute gas pattern without an evidence of bowel obstruction. ASSESSMENT: Abdominal pain, chronic. PLAN: We will continue to advance her diet. She has followup appointments already prearranged with Surgical Services here and at either [place] or [facility]. She is having bowel movements. Her pain as she describes is controlled, but again this is a chronic issue. No immediate plans for surgical intervention at this time. Erick Beal MD /[id number]
== END 2020-03-03 15:41 | disposition home or self-care (01) ==
LOC: JP.ED 09:58
DX: K56.609 Unspecified intestinal obstruction, unspecified as to partial versus complete obstruction (principal); F17.210 Nicotine dependence, cigarettes, uncomplicated; Z90.49 Acquired absence of other specified parts of digestive tract; Z90.710 Acquired absence of both cervix and uterus; Z98.890 Other specified postprocedural states; Z91.040 Latex allergy status
CPT/HCPCS: 36415; 74022; 80048; 80076; 81001; 83605; 83690; 85025; 86140; 96361; 96374; 96375; 99285; J1170; J1790; J2405; J3010; J7030

== ENCOUNTER 2020-03-05 09:59 | Inpatient (IN) | payer MEDICARE, OTHER ==
--- NOTE | 2020-03-05 10:55 | CR ---
Abdomen 2V AP Flat Upright CLINICAL HISTORY: Abdominal pain FINDINGS: Small intestinal configuration is nonacute. No free air is identified. There is some gas and feces throughout the colon. Patient has had previous the lower ventral hernia repair. IMPRESSION: Nonacute intestinal gas pattern Previous ventral hernia repair
--- NOTE | 2020-03-05 13:05 | CR ---
PELVIS AP Clinical History: Abdominal pain Findings: No acute fracture or dislocation is noted. No destructive changes are present.Patient has had lower abdominal surgery for apparent ventral hernia repair. There is a large bolus of stool in the rectum. Impression: Previous ventral hernia repair
[2020-03-05] MEDS ORDERED: Lactated Ringers 1,000 ML IV ONE (17:09)
[2020-03-05] MEDS: HYDROmorphone 1 MG/ML Syringe IVPUSH PRN ×2 (18:24→22:29)
[2020-03-05] MEDS: Ondansetron 4 MG Tab.DIS PO PRN (19:44)
[2020-03-05] MEDS ORDERED: Bisacodyl 10 MG Supp RECTAL PRN (19:45)
[2020-03-05] MEDS: Calcium Carbonate 500 MG Tab.Chew PO PRN ×2 (20:16→22:40)
[2020-03-05] MEDS: Acetaminophen 500 MG Tab PO PRN (20:17)
[2020-03-05] MEDS: Docusate Sodium 100 MG Cap PO PRN (20:18)
[2020-03-05] MEDS: Magnesium Hydroxide 400 MG/5 ML Susp 30 ML Cup PO PRN (20:19)
--- NOTE | 2020-03-05 20:42 | PCM.HP.2 ---
H&P History of Present Illness - General Date of Service: 03/05/20 Admit Problem/Dx: Admission Diagnosis/Problem Admission Diagnosis/Problem Abdominal pain Source of Information: Patient History Limitations: Reports: No Limitations - History of Present Illness Initial Comments - Free Text/Narative: Darlene is a 54-year-old female comes in for abdominal pain was seen in the office after having a flat and upright of the abdomen. She was seen in the emergency room 2 days ago and was sent home as she felt she was doing okay. The x-rays today showed no significant change but the pain was worse now than it was 2 days ago and she was vomiting today. She is unable to hold down any food or liquid. She is not passing any gas or stools. She's had multiple surgeries in the past due to abdominal obstructions and hernias. Onset of Symptoms: Reports: Gradual Duration of Symptoms: Reports: Day(s): Location: Reports: Abdomen Severity: Moderate Worsens with: Reports: Eating Associated Symptoms: Reports: Nausea/Vomiting, Weakness - Related Data Allergies/Adverse Reactions: Allergies Allergy/AdvReac Type Severity Reaction Status Date / Time latex Allergy Rash Verified 01/13/19 09:05 Home Medications: Home Meds Docusate Sodium 100 mg PO BID PRN 01/13/19 [History] Cyclobenzaprine [Flexeril] 10 mg PO Q6H PRN #30 tablet 01/14/19 [Rx] Ibuprofen [Motrin] 600 mg PO Q6H PRN #40 tablet 01/14/19 [Rx] Azithromycin 250 mg PO DAILY 03/03/20 [History] Past Medical History - Past Health History Medical/Surgical History: Denies Medical/Surgical History HEENT History: Reports: Allergic Rhinitis, Impaired Vision Other HEENT History: wears glasses Cardiovascular History: Reports: None Respiratory History: Reports: Bronchitis, Recurrent Gastrointestinal History: Reports: Bowel Obstruction, Cholelithiasis, Other (See Below) Other Gastrointestinal History: right inguinal hernia Hematoma removed from groin Hernia surgery x8. 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, Fibroids, , Spontaneous Other OB/BYN History: "tumor in uterus" Musculoskeletal History: Reports: Fibromyalgia Neurological History: Reports: None Psychiatric History: Reports: Anxiety, Panic Attack Endocrine/Metabolic History: Reports: None Hematologic History: Reports: None Immunologic History: Reports: None Oncologic (Cancer) History: Reports: None Dermatologic History: Reports: None - Infectious Disease History Infectious Disease History: Reports: Chicken Pox - Past Surgical History HEENT Surgical History: Reports: Tonsillectomy Respiratory Surgical History: Reports: None GI Surgical History: Reports: Cholecystectomy, Hernia, Inguinal, Hernia Repair/Other Female Surgical History: Reports: Section, D&C, Hysterectomy, Salpingo-Oophorectomy, Tubal Ligation Neurological Surgical History: Reports: None Musculoskeletal Surgical History: Reports: Other (See Below) Other Musculoskeletal Surgeries/Procedures:: ankle fracture with pins placed ulnar nerve left Dermatological Surgical History: Reports: Skin Biopsy Social & Family History - Family History Family Medical History: Noncontributory HEENT: Reports: Impaired Vision Cardiac: Reports: Heart Failure Respiratory: Reports: COPD GI: Reports: None : Reports: None OBGYN: Reports: None Musculoskeletal: Reports: Fibromyalgia Neurological: Reports: None Psychiatric: Reports: Anxiety, Depression, Panic Attack Endocrine/Metabolic: Reports: Diabetes, type II Hematologic: Reports: None Immunologic: Reports: None Dermatologic: Reports: None Oncologic: Reports: Ovarian - Tobacco Use Smoking Status *Q: Current Every Day Smoker Years of Tobacco use: 30 Packs/Tins Daily: 0.5 Used Tobacco, but Quit: No Second Hand Smoke Exposure: No - Caffeine Use Caffeine Use: Reports: Coffee Other Caffeine Use: 6 cups a day H&P Review of Systems - Review of Systems: Review Of Systems: See Below General: Reports: Weakness HEENT: Reports: No Symptoms Pulmonary: Reports: No Symptoms Cardiovascular: Reports: No Symptoms Gastrointestinal: Reports: Abdominal Pain, Difficulty Swallowing, Nausea, Vomiting Genitourinary: Reports: No Symptoms Musculoskeletal: Reports: No Symptoms Skin: Reports: No Symptoms Psychiatric: Reports: No Symptoms Neurological: Reports: Weakness Hematologic/Lymphatic: Reports: No Symptoms Immunologic: Reports: No Symptoms Exam - Exam Exam: See Below - Vital Signs Vital Signs: Last Vital Signs Temp 97.0 F 03/05/20 20:27 Pulse 73 03/05/20 20:27 Resp 18 03/05/20 20:27 BP 119/57 L 03/05/20 20:27 Pulse Ox 95 03/05/20 20:27 Weight: 163 lb - Exam General: Alert, Oriented, 4 HEENT: PERRLA Neck: Supple, Trachea Midline, 2 Lungs: Clear to Auscultation, Normal Respiratory Effort Cardiovascular: Regular Rate, Regular Rhythm GI/Abdominal Exam: Distended, Guarding, Tender Back Exam: Normal Inspection, Full Range of Motion, NT Extremities: Normal Inspection, Normal Range of Motion, Non-Tender, No Pedal Edema, Normal Capillary Refill Peripheral Pulses: 1+: Radial (L), Radial (R) Skin: Warm, Dry, Intact Neurological: Cranial Nerves Intact, Reflexes Equal Bilateral Neuro Extensive - Mental Status: Alert, Oriented x3, Normal Mood/Affect, Normal Cognition Neuro Extensive - Motor, Sensory, Reflexes: CN II-XII Intact, Normal Gait, Normal Reflexes DTR: 1+: Bicep (L), Bicep (R) Psychiatric: Alert, Normal Affect, Anxious - Patient Data Lab Results Last 24 hrs: Laboratory Results - last 24 hr 03/05/20 03/05/20 Range/Units 16:38 16:38 WBC 6.5 (4.5-11.0) K/uL RBC 5.01 (3.30-5.50) M/uL Hgb 15.0 (12.0-15.0) g/dL Hct 45.8 (36.0-48.0) % MCV 91 (80-98) fL MCH 30 (27-31) pg MCHC 33 (32-36) % Plt Count 128 L (150-400) K/uL Neut % (Auto) 49 (36-66) % Lymph % (Auto) 42 (24-44) % [place] % (Auto) 8 H (2-6) % Eos % (Auto) 1 L (2-4) % Baso % (Auto) 1 (0-1) % Sodium 141 (140-148) mmol/L Potassium 3.9 (3.6-5.2) mmol/L Chloride 105 (100-108) mmol/L Carbon Dioxide 25 (21-32) mmol/L Anion Gap 11.0 (5.0-14.0) mmol/L BUN 11 (7-18) mg/dL Creatinine 0.8 (0.6-1.0) mg/dL Est Cr Clr Drug Dosing 71.50 mL/min Estimated GFR (MDRD) > 60 (>60) Glucose 89 (74-106) mg/dL Calcium 9.0 (8.5-10.1) mg/dL Total Bilirubin 0.4 (0.2-1.0) mg/dL AST 27 (15-37) U/L ALT 34 (12-78) U/L Alkaline Phosphatase 86 (46-116) U/L Total Protein 7.0 (6.4-8.2) g/dL Albumin 3.6 (3.4-5.0) g/dL Globulin 3.4 (2.3-3.5) g/dL Albumin/Globulin Ratio 1.1 L (1.2-2.2) Result Diagrams: 03/05/20 16:38 03/05/20 16:38 Sepsis Event Note - Focused Exam Vital Signs: Vital Signs Temp Pulse Resp BP Pulse Ox 03/05/20 20:27 97.0 F 73 18 119/57 L 95 03/05/20 15:11 99.3 F 87 16 136/47 L 96 Problem List Initiated/Reviewed/Updated: Yes Orders Last 24hrs: Active Orders 24 hr Category Date Time Status Patient Status [ADT] Routine ADT 03/05/20 16:10 Active Ambulate [RC] QID Care 03/05/20 16:10 Active Height and Weight [RC] UPON Care 03/05/20 16:10 Active Intake and Output [RC] QSHIFT Care 03/05/20 16:12 Active Notify Provider Consults [RC] ASDIRECTED Care 03/05/20 17:11 Active Oxygen Therapy [RC] PRN Care 03/05/20 16:10 Active Up to Chair [RC] QID Care 03/05/20 16:10 Active VTE/DVT Education [RC] Per Unit Routine Care 03/05/20 16:10 Active Vital Signs [RC] Q4H Care 03/05/20 16:10 Active Consult to Physician [CONS] Routine Cons 03/05/20 17:10 Ordered Nothing Per Oral Diet [DIET] Diet 03/06/20 Breakfast Active Acetaminophen [Tylenol Extra Strength] Med 03/05/20 19:45 Active 500 - 1,000 mg PO Q6H PRN Calcium Carbonate [Tums] Med 03/05/20 19:45 Active 500 mg PO Q2H PRN Dextrose 5%-0.9% NaCl [Dextrose 5%-Normal Saline] 1,000 Med 03/05/20 18:15 Active ml IV ASDIRECTED Docusate Sodium [Colace] Med 03/05/20 19:45 Active 100 mg PO BID PRN HYDROmorphone [Dilaudid] Med 03/05/20 18:10 Active 1 mg IVPUSH Q4H PRN Magnesium Hydroxide [Milk of Magnesia] Med 03/05/20 19:45 Active 30 ml PO BID PRN Ondansetron [Zofran ODT] Med 03/05/20 16:10 Active 4 mg PO Q6H PRN bisacodyL [Dulcolax] Med 03/05/20 19:45 Active 10 mg RECTAL BID PRN bisacodyL [Dulcolax] Med 03/05/20 16:10 Active 5 mg PO DAILY PRN SCD [Sequential Compression Device] [OM.PC] Routine Oth 03/05/20 17:09 Ordered Resuscitation Status Routine Resus Stat 03/05/20 16:10 Ordered Medication Orders Acetaminophen (Tylenol Extra Strength) 500 - 1,000 mg PO Q6H PRN PRN Reason: Headache Last Admin: 03/05/20 20:17 Dose: 1,000 mg Documented by: TMAERA Bisacodyl (Dulcolax) 5 mg PO DAILY PRN PRN Reason: Constipation Bisacodyl (Dulcolax) 10 mg RECTAL BID PRN PRN Reason: Constipation Last Admin: 03/05/20 20:19 Dose: 10 mg Documented by: TAMERA Calcium Carbonate/Glycine (Tums) 500 mg PO Q2H PRN PRN Reason: Heartburn Last Admin: 03/05/20 20:16 Dose: 500 mg Documented by: TAMERA Docusate Sodium (Colace) 100 mg PO BID PRN PRN Reason: Constipation Last Admin: 03/05/20 20:18 Dose: 100 mg Documented by: TAMERA Hydromorphone HCl (Dilaudid) 1 mg IVPUSH Q4H PRN PRN Reason: Abdominal Pain Last Admin: 03/05/20 18:24 Dose: 1 mg Documented by: DAT Dextrose/Sodium Chloride (Dextrose 5%-Normal Saline) 1,000 mls @ 125 mls/hr IV ASDIRECTED SHILO Magnesium Hydroxide (Milk Of Magnesia) 30 ml PO BID PRN PRN Reason: Constipation Last Admin: 03/05/20 20:19 Dose: 30 ml Documented by: TAMERA Ondansetron HCl (Zofran Odt) 4 mg PO Q6H PRN PRN Reason: Nausea able to take PO Last Admin: 03/05/20 19:44 Dose: 4 mg Documented by: TAMERA Assessment/Plan Comment:: Assessment/Plan: #1. Abdominal pain. X-rays done before admission showed no significant pathology but the pain is significant and unable to tolerate the pain. She is also nauseated and attempting to vomit. I did give her Dulcolax this morning with no improvement and no bowel movement nor passing air. Blood work is pending and I'll consult surgery. I will start IV fluids and control her pain. - Mortality Measure Prognosis:: Good
[2020-03-05] MEDS: Bisacodyl 5 MG Tab PO PRN (22:41)
[2020-03-06] MEDS: Acetaminophen 500 MG Tab PO PRN ×2 (02:39→09:16)
[2020-03-06] MEDS: HYDROmorphone 1 MG/ML Syringe IVPUSH PRN ×5 (02:45→20:03)
[2020-03-06] MEDS: Calcium Carbonate 500 MG Tab.Chew PO PRN ×3 (02:45→15:38)
[2020-03-06] MEDS: Ondansetron 4 MG Tab.DIS PO PRN ×3 (05:00→18:59)
--- NOTE | 2020-03-06 09:05 | CR ---
Abdomen 2V AP Flat Upright CLINICAL HISTORY: Abdominal pain FINDINGS: There are scattered air-filled loops of small bowel. Gas pattern is nonacute. There is some gas and feces throughout the colon. Patient has had previous ventral hernia repair in the right lower abdomen and pelvis. Impression: Nonacute intestinal gas pattern Previous ventral hernia repair
[2020-03-06] MEDS: Docusate Sodium 100 MG Cap PO PRN (11:28)
[2020-03-06] MEDS: Magnesium Hydroxide 400 MG/5 ML Susp 30 ML Cup PO PRN (11:28)
[2020-03-06] MEDS: Bisacodyl 5 MG Tab PO PRN (11:28)
[2020-03-06] MEDS: Dextrose 5%-0.9% NaCl 1,000 ML IV SCH ×2 (12:41→20:52)
[2020-03-06] MEDS ORDERED: Polyethylene Glycol 3350 Powder 17 GM Packet PO PRN (13:05)
[2020-03-06] MEDS ORDERED: Bisacodyl 5 MG Tab PO ONE (13:06)
--- NOTE | 2020-03-06 15:32 | CT ---
Abdomen Pelvis wo Cont CLINICAL HISTORY: Abdominal pain COMPARISON: September 02, 2019. TECHNIQUE: Axial tomographic images are obtained from the dome of the diaphragm to the pubic symphysis without IV contrast enhancement. No oral contrast was used. Auto dosage reduction and iterative reconstruction techniques employed. FINDINGS: The lung bases show scarring on the right. The liver shows no mass or biliary dilatation. The gallbladder has been removed. The stomach is fluid-filled. The spleen has a normal size and shape. The pancreas shows no mass or inflammatory change. The adrenal glands appear normal bilaterally. The kidneys shows no mass, stones or hydronephrosis. The aorta has a normal contour. There is no suspicious retroperitoneal adenopathy. Patient has had previous ventral hernia repair in the right lower quadrant. There are some scattered mildly dilated fluid-filled loops of small bowel. Intestinal pattern is nonspecific. IMPRESSION: Previous right lower abdominal pelvic ventral hernia repair. Fluid-filled stomach small intestine and right colon. This pattern is nonspecific. It is similar to the September 02, 2019 exam. There is no evidence to suggest incarceration. Previous cholecystectomy
--- NOTE | 2020-03-06 22:39 | PCM.PN ---
- General Info Date of Service: 03/06/20 Functional Status: Reports: Other (pain partially controlled) - Review of Systems General: Reports: Weakness HEENT: Reports: No Symptoms Pulmonary: Reports: No Symptoms Cardiovascular: Reports: No Symptoms Gastrointestinal: Reports: Abdominal Pain, Nausea, Vomiting Genitourinary: Reports: No Symptoms Musculoskeletal: Reports: No Symptoms Skin: Reports: No Symptoms Neurological: Reports: No Symptoms Psychiatric: Reports: No Symptoms - Patient Data Vitals - Most Recent: Last Vital Signs Temp 97.1 F 03/06/20 19:00 Pulse 72 03/06/20 19:00 Resp 16 03/06/20 19:00 BP 155/72 H 03/06/20 19:00 Pulse Ox 97 03/06/20 19:00 Weight - Most Recent: 163 lb I&O - Last 24 Hours: Intake & Output 03/06/20 03/06/20 03/06/20 06:59 14:59 22:59 Intake Total 2450 600 Balance 2450 600 Med Orders - Current: Current Medications Acetaminophen (Tylenol Extra Strength) 500 - 1,000 mg PO Q6H PRN PRN Reason: Headache Last Admin: 03/06/20 09:16 Dose: 1,000 mg Documented by: Bisacodyl (Dulcolax) 5 mg PO DAILY PRN PRN Reason: Constipation Last Admin: 03/06/20 11:28 Dose: 5 mg Documented by: Bisacodyl (Dulcolax) 10 mg RECTAL BID PRN PRN Reason: Constipation Last Admin: 03/05/20 20:19 Dose: 10 mg Documented by: Calcium Carbonate/Glycine (Tums) 500 mg PO Q2H PRN PRN Reason: Heartburn Last Admin: 03/06/20 15:38 Dose: 500 mg Documented by: Docusate Sodium (Colace) 100 mg PO BID PRN PRN Reason: Constipation Last Admin: 03/06/20 11:28 Dose: 100 mg Documented by: Hydromorphone HCl (Dilaudid) 1 mg IVPUSH Q4H PRN PRN Reason: Abdominal Pain Last Admin: 03/06/20 20:03 Dose: 1 mg Documented by: Dextrose/Sodium Chloride (Dextrose 5%-Normal Saline) 1,000 mls @ 125 mls/hr IV ASDIRECTED SHILO Last Admin: 09/22/20 20:52 Dose: 125 mls/hr Documented by: Magnesium Hydroxide (Milk Of Magnesia) 30 ml PO BID PRN PRN Reason: Constipation Last Admin: 03/06/20 11:28 Dose: 30 ml Documented by: Ondansetron HCl (Zofran Odt) 4 mg PO Q6H PRN PRN Reason: Nausea able to take PO Last Admin: 03/06/20 18:59 Dose: 4 mg Documented by: Polyethylene Glycol (Miralax) 17 gm PO BID PRN PRN Reason: Constipation Last Admin: 03/06/20 13:35 Dose: 17 gm Documented by: Discontinued Medications Bisacodyl (Dulcolax) 10 mg PO ONETIME ONE Stop: 03/06/20 13:07 Last Admin: 03/06/20 13:34 Dose: 10 mg Documented by: Lactated Ringer's (Ringers, Lactated) 1,000 mls @ 999 mls/hr IV BOLUS ONE Stop: 03/05/20 18:09 Last Admin: 03/05/20 18:14 Dose: 999 mls/hr Documented by: - Exam General: Alert, Oriented HEENT: Pupils Equal, Pupils Reactive, EOMI, Mucous Membr. Moist/[place] Neck: Supple Lungs: Clear to Auscultation, Normal Respiratory Effort Cardiovascular: Regular Rate, Regular Rhythm GI/Abdominal Exam: Guarding, Tender, Abnormal Bowel Sounds Extremities: Normal Inspection, Normal Range of Motion, Non-Tender, No Pedal Edema, Normal Capillary Refill Peripheral Pulses: 1+: Radial (L), Radial (R) Skin: Warm, Dry, Intact Psy/Mental Status: Alert, Normal Affect, Normal Mood Sepsis Event Note - Evaluation Sepsis Screening Result: No Definite Risk - Focused Exam Vital Signs: Vital Signs Temp Pulse Resp BP Pulse Ox 03/06/20 19:00 97.1 F 72 16 155/72 H 97 03/06/20 15:00 97.4 F 92 16 153/65 H 96 03/06/20 11:00 96.6 F L 66 16 129/43 L 95 - Problem List Review Problem List Initiated/Reviewed/Updated: Yes - My Orders Last 24 Hours: My Active Orders 03/06/20 13:05 polyethylene glycoL 3350 [MiraLAX] 17 gm PO BID PRN - Plan Plan:: Assessment/Plan: #1. Abdominal pain. X-rays done today showed no significant change from yesterday and her pain was worse. I then did a CT of the abdomen without contrast which showed no acute pathology. I had given her cathartic medication through the day and after the CAT scan she did have her a large bowel movement finally. hopefully this will continue and will continue to give Dulcolax and other medication as needed and hopefully not have to go to a surgical procedure. We'll get blood work in the morning.
[2020-03-07] MEDS: HYDROmorphone 1 MG/ML Syringe IVPUSH PRN ×3 (01:03→09:11)
[2020-03-07] MEDS: Docusate Sodium 100 MG Cap PO PRN (01:03)
[2020-03-07] MEDS: Dextrose 5%-0.9% NaCl 1,000 ML IV SCH (04:52)
[2020-03-07] MEDS: Calcium Carbonate 500 MG Tab.Chew PO PRN (04:52)
--- NOTE | 2020-03-07 07:05 | PCM.PN ---
- General Info Date of Service: 03/07/20 - Review of Systems General: Reports: No Symptoms HEENT: Reports: No Symptoms Pulmonary: Reports: No Symptoms Cardiovascular: Reports: No Symptoms Gastrointestinal: Reports: Abdominal Pain Genitourinary: Reports: No Symptoms Musculoskeletal: Reports: No Symptoms Skin: Reports: No Symptoms Neurological: Reports: No Symptoms Psychiatric: Reports: No Symptoms - Patient Data Vitals - Most Recent: Last Vital Signs Temp 97.9 F 03/07/20 04:00 Pulse 74 03/07/20 04:00 Resp 18 03/07/20 04:00 BP 141/71 H 03/07/20 04:00 Pulse Ox 96 03/07/20 04:00 Weight - Most Recent: 163 lb I&O - Last 24 Hours: Intake & Output 03/06/20 03/06/20 03/07/20 14:59 22:59 06:59 Intake Total 501 287 8544 Balance 395 240 2331 Lab Results Last 24 Hours: Laboratory Results - last 24 hr 03/07/20 03/07/20 Range/Units 04:10 04:10 WBC 3.3 L (4.5-11.0) K/uL RBC 4.49 (3.30-5.50) M/uL Hgb 13.5 (12.0-15.0) g/dL Hct 41.7 (36.0-48.0) % MCV 93 (80-98) fL MCH 30 (27-31) pg MCHC 32 (32-36) % Plt Count 101 L (150-400) K/uL Neut % (Auto) 42 (36-66) % Lymph % (Auto) 48 H (24-44) % [place] % (Auto) 8 H (2-6) % Eos % (Auto) 2 (2-4) % Baso % (Auto) 0 (0-1) % Sodium 142 (140-148) mmol/L Potassium 4.1 (3.6-5.2) mmol/L Chloride 108 (100-108) mmol/L Carbon Dioxide 26 (21-32) mmol/L Anion Gap 8.4 (5.0-14.0) mmol/L BUN 6 L (7-18) mg/dL Creatinine 0.7 (0.6-1.0) mg/dL Est Cr Clr Drug Dosing 81.71 mL/min Estimated GFR (MDRD) > 60 (>60) Glucose 107 H (74-106) mg/dL Calcium 8.4 L (8.5-10.1) mg/dL Total Bilirubin 0.5 (0.2-1.0) mg/dL AST 255 H D (15-37) U/L ALT 356 H (12-78) U/L Alkaline Phosphatase 131 H (46-116) U/L Total Protein 6.3 L (6.4-8.2) g/dL Albumin 3.2 L (3.4-5.0) g/dL Globulin 3.1 (2.3-3.5) g/dL Albumin/Globulin Ratio 1.0 L (1.2-2.2) Med Orders - Current: Current Medications Acetaminophen (Tylenol Extra Strength) 500 - 1,000 mg PO Q6H PRN PRN Reason: Headache Last Admin: 03/06/20 09:16 Dose: 1,000 mg Documented by: Bisacodyl (Dulcolax) 5 mg PO DAILY PRN PRN Reason: Constipation Last Admin: 03/06/20 11:28 Dose: 5 mg Documented by: Bisacodyl (Dulcolax) 10 mg RECTAL BID PRN PRN Reason: Constipation Last Admin: 03/05/20 20:19 Dose: 10 mg Documented by: Calcium Carbonate/Glycine (Tums) 500 mg PO Q2H PRN PRN Reason: Heartburn Last Admin: 03/07/20 04:52 Dose: 500 mg Documented by: Docusate Sodium (Colace) 100 mg PO BID PRN PRN Reason: Constipation Last Admin: 03/07/20 01:03 Dose: 100 mg Documented by: Hydromorphone HCl (Dilaudid) 1 mg IVPUSH Q4H PRN PRN Reason: Abdominal Pain Last Admin: 03/07/20 05:03 Dose: 1 mg Documented by: Dextrose/Sodium Chloride (Dextrose 5%-Normal Saline) 1,000 mls @ 125 mls/hr IV ASDIRECTED SHILO Last Admin: 03/07/20 04:52 Dose: 125 mls/hr Documented by: Magnesium Hydroxide (Milk Of Magnesia) 30 ml PO BID PRN PRN Reason: Constipation Last Admin: 03/06/20 11:28 Dose: 30 ml Documented by: Ondansetron HCl (Zofran Odt) 4 mg PO Q6H PRN PRN Reason: Nausea able to take PO Last Admin: 03/06/20 18:59 Dose: 4 mg Documented by: Polyethylene Glycol (Miralax) 17 gm PO BID PRN PRN Reason: Constipation Last Admin: 03/06/20 13:35 Dose: 17 gm Documented by: Discontinued Medications Bisacodyl (Dulcolax) 10 mg PO ONETIME ONE Stop: 03/06/20 13:07 Last Admin: 03/06/20 13:34 Dose: 10 mg Documented by: Lactated Ringer's (Ringers, Lactated) 1,000 mls @ 999 mls/hr IV BOLUS ONE Stop: 03/05/20 18:09 Last Admin: 03/05/20 18:14 Dose: 999 mls/hr Documented by: - Exam General: Alert, Oriented HEENT: Pupils Equal, Pupils Reactive, EOMI, Mucous Membr. Moist/[place] Neck: Supple Lungs: Clear to Auscultation, Normal Respiratory Effort Cardiovascular: Regular Rate, Regular Rhythm GI/Abdominal Exam: Normal Bowel Sounds, Soft, Tender Back Exam: Normal Inspection, Full Range of Motion Extremities: Normal Inspection, Normal Range of Motion, Non-Tender, No Pedal Edema, Normal Capillary Refill Peripheral Pulses: 1+: Radial (L), Radial (R) Skin: Warm, Dry, Intact Psy/Mental Status: Alert, Normal Affect, Normal Mood Sepsis Event Note - Evaluation Sepsis Screening Result: No Definite Risk - Focused Exam Vital Signs: Vital Signs Temp Pulse Resp BP Pulse Ox 03/07/20 04:00 97.9 F 74 18 141/71 H 96 03/06/20 23:00 96.7 F L 83 18 155/75 H 90 L 03/06/20 19:00 97.1 F 72 16 155/72 H 97 - Problem List Review Problem List Initiated/Reviewed/Updated: Yes - My Orders Last 24 Hours: My Active Orders 03/06/20 13:05 polyethylene glycoL 3350 [MiraLAX] 17 gm PO BID PRN 03/06/20 22:46 Convert IV to Saline Lock [OM.PC] Routine - Plan Plan:: Assessment/Plan: #1. Abdominal pain. X-rays and CT done yesterday showed no significant change from admission and her pain is minimal at the present time. I had given her cathartic medication through the day yesterday and after the CAT scan she did have her a large bowel movement finally. hopefully this will continue and will continue to give Dulcolax and other medication as needed and hopefully not have to go to a surgical procedure. She will be discharged h ome today and to take medicine to stimulate her bowel. #2. Liver dysfunction AST/ALT 255/356. Will check this in the office next week
--- NOTE | 2020-03-07 07:10 | PCM.DCSUM1 ---
Discharge Summary - Hospital Course HPI Initial Comments: Admitted with a bowel obstruction with N and V with abdominal pain. Diagnosis: Stroke: No - Discharge Data Discharge Date: 03/07/20 Discharge Disposition: Home, Self-Care 01 Condition: Good - Referral to Home Health Primary Care Physician: Tristian Simmons Sr, MD - Patient Summary/Data Consults: Consultations 03/05/20 17:10 Consult to Physician [CONS] Routine Consulting Provider: Erick Beal Call Completed to Consulting Physician: Yes Reason for Consult: abd pain Person Notified: aisha Date Notified: 03/05/20 Special Instructions: per [facility] Hospital Course: Admitted with abd pain and gave meds to stimulate the bowel and fluids and finally past stools. CT and X-rays showed no obstruction. - Patient Instructions Activity: As Tolerated - Discharge Plan Home Medications: Home Meds Docusate Sodium 100 mg PO BID PRN 01/13/19 [History] Cyclobenzaprine [Flexeril] 10 mg PO Q6H PRN #30 tablet 01/14/19 [Rx] Ibuprofen [Motrin] 600 mg PO Q6H PRN #40 tablet 01/14/19 [Rx] Azithromycin 250 mg PO DAILY 03/03/20 [History] - Discharge Summary/Plan Comment DC Time >30 min.: Yes Discharge Summary/Plan Comment: Assessment/Plan: #1. Abdominal pain. X-rays and CT done yesterday showed no significant change from admission and her pain is minimal at the present time. I had given her cathartic medication through the day yesterday and after the CAT scan she did have her a large bowel movement finally. hopefully this will continue and will continue to give Dulcolax and other medication as needed and hopefully not have to go to a surgical procedure. She will be discharged h ome today and to take medicine to stimulate her bowel. #2. Liver dysfunction AST/ALT 255/356. Will check this in the office next week - General Info Date of Service: 03/07/20 Subjective Update: Feeling better after passing stools last night. - Review of Systems General: Reports: No Symptoms HEENT: Reports: No Symptoms Pulmonary: Reports: No Symptoms Cardiovascular: Reports: No Symptoms Gastrointestinal: Reports: Abdominal Pain Genitourinary: Reports: No Symptoms Musculoskeletal: Reports: No Symptoms Skin: Reports: No Symptoms Neurological: Reports: No Symptoms Psychiatric: Reports: No Symptoms - Patient Data Vitals - Most Recent: Last Vital Signs Temp 97.9 F 03/07/20 04:00 Pulse 74 03/07/20 04:00 Resp 18 03/07/20 04:00 BP 141/71 H 03/07/20 04:00 Pulse Ox 96 03/07/20 04:00 Weight - Most Recent: 163 lb I&O - Last 24 hours: Intake & Output 03/06/20 03/07/20 03/07/20 22:59 06:59 14:59 Intake Total 120 2573 Balance 120 2573 Lab Results - Last 24 hrs: Laboratory Results - last 24 hr 03/07/20 03/07/20 Range/Units 04:10 04:10 WBC 3.3 L (4.5-11.0) K/uL RBC 4.49 (3.30-5.50) M/uL Hgb 13.5 (12.0-15.0) g/dL Hct 41.7 (36.0-48.0) % MCV 93 (80-98) fL MCH 30 (27-31) pg MCHC 32 (32-36) % Plt Count 101 L (150-400) K/uL Neut % (Auto) 42 (36-66) % Lymph % (Auto) 48 H (24-44) % [place] % (Auto) 8 H (2-6) % Eos % (Auto) 2 (2-4) % Baso % (Auto) 0 (0-1) % Sodium 142 (140-148) mmol/L Potassium 4.1 (3.6-5.2) mmol/L Chloride 108 (100-108) mmol/L Carbon Dioxide 26 (21-32) mmol/L Anion Gap 8.4 (5.0-14.0) mmol/L BUN 6 L (7-18) mg/dL Creatinine 0.7 (0.6-1.0) mg/dL Est Cr Clr Drug Dosing 81.71 mL/min Estimated GFR (MDRD) > 60 (>60) Glucose 107 H (74-106) mg/dL Calcium 8.4 L (8.5-10.1) mg/dL Total Bilirubin 0.5 (0.2-1.0) mg/dL AST 255 H D (15-37) U/L ALT 356 H (12-78) U/L Alkaline Phosphatase 131 H (46-116) U/L Total Protein 6.3 L (6.4-8.2) g/dL Albumin 3.2 L (3.4-5.0) g/dL Globulin 3.1 (2.3-3.5) g/dL Albumin/Globulin Ratio 1.0 L (1.2-2.2) Med Orders - Current: Current Medications Acetaminophen (Tylenol Extra Strength) 500 - 1,000 mg PO Q6H PRN PRN Reason: Headache Last Admin: 03/06/20 09:16 Dose: 1,000 mg Documented by: Bisacodyl (Dulcolax) 5 mg PO DAILY PRN PRN Reason: Constipation Last Admin: 03/06/20 11:28 Dose: 5 mg Documented by: Bisacodyl (Dulcolax) 10 mg RECTAL BID PRN PRN Reason: Constipation Last Admin: 03/05/20 20:19 Dose: 10 mg Documented by: Calcium Carbonate/Glycine (Tums) 500 mg PO Q2H PRN PRN Reason: Heartburn Last Admin: 03/07/20 04:52 Dose: 500 mg Documented by: Docusate Sodium (Colace) 100 mg PO BID PRN PRN Reason: Constipation Last Admin: 03/07/20 01:03 Dose: 100 mg Documented by: Hydromorphone HCl (Dilaudid) 1 mg IVPUSH Q4H PRN PRN Reason: Abdominal Pain Last Admin: 03/07/20 05:03 Dose: 1 mg Documented by: Dextrose/Sodium Chloride (Dextrose 5%-Normal Saline) 1,000 mls @ 125 mls/hr IV ASDIRECTED [facility] Last Admin: 03/07/20 04:52 Dose: 125 mls/hr Documented by: Magnesium Hydroxide (Milk Of Magnesia) 30 ml PO BID PRN PRN Reason: Constipation Last Admin: 03/06/20 11:28 Dose: 30 ml Documented by: Ondansetron HCl (Zofran Odt) 4 mg PO Q6H PRN PRN Reason: Nausea able to take PO Last Admin: 03/06/20 18:59 Dose: 4 mg Documented by: Polyethylene Glycol (Miralax) 17 gm PO BID PRN PRN Reason: Constipation Last Admin: 03/06/20 13:35 Dose: 17 gm Documented by: Discontinued Medications Bisacodyl (Dulcolax) 10 mg PO ONETIME ONE Stop: 03/06/20 13:07 Last Admin: 03/06/20 13:34 Dose: 10 mg Documented by: Lactated Ringer's (Ringers, Lactated) 1,000 mls @ 999 mls/hr IV BOLUS ONE Stop: 03/05/20 18:09 Last Admin: 03/05/20 18:14 Dose: 999 mls/hr Documented by: - Exam General: Reports: Alert, Oriented HEENT: Reports: Pupils Equal, Pupils Reactive, EOMI, Mucous Membr. Moist/[place] Neck: Reports: Supple Lungs: Reports: Clear to Auscultation, Normal Respiratory Effort Cardiovascular: Reports: Regular Rate, Regular Rhythm GI/Abdominal Exam: Normal Bowel Sounds Back Exam: Reports: Normal Inspection, Full Range of Motion Extremities: Normal Inspection, Normal Range of Motion, Non-Tender, No Pedal Edema, Normal Capillary Refill Skin: Reports: Warm, Dry, Intact Neurological: Reports: No New Focal Deficit Psy/Mental Status: Reports: Alert, Normal Affect, Normal Mood
[2020-03-07] MEDS: Acetaminophen 500 MG Tab PO PRN (08:04)
[2020-03-07] MEDS: Ondansetron 4 MG Tab.DIS PO PRN (08:04)
[2020-03-07 08:30] VITALS: BP 147/62; PULSE 72
== END 2020-03-07 09:55 | disposition home or self-care (01) | DRG 443 ==
LOC: JP.DI 09:59 → UNDOADMIN 14:44 → JP.MS 14:44 → UNDODISIN 03-07 09:55
PROVIDERS: ADMIT Internal Medicine; ATTEND Internal Medicine
DX: K76.89 Other specified diseases of liver (principal); H54.7 Unspecified visual loss; F17.200 Nicotine dependence, unspecified, uncomplicated; J30.9 Allergic rhinitis, unspecified; F41.0 Panic disorder [episodic paroxysmal anxiety]; Z91.040 Latex allergy status; Z90.49 Acquired absence of other specified parts of digestive tract; Z90.710 Acquired absence of both cervix and uterus; R11.2 Nausea with vomiting, unspecified
CPT/HCPCS: 36415; 72170; 72170-26; 74019; 74019-26; 74176; 74176-26; 80053; 85025; A9270-GY; J1170; J7120

== ENCOUNTER 2020-06-14 06:37 | Inpatient (IN) | payer MEDICARE, OTHER ==
[~2020-06-14 06:37] MED LIST changes: -Bupivacaine 0.5%/EPINEPHrine 1:200,000 50 ML MDV ONE
[2020-06-14] MEDS ORDERED: Dextrose 5%-Lactated Ringers 1,000 ML IV SCH ×2 (07:30→10:45)
[2020-06-14] MEDS ORDERED: Dexamethasone 4 MG/ML SDV ONE (07:30)
[2020-06-14] MEDS ORDERED: Glycopyrrolate 0.2 MG/ML 5 ML MDV ONE (07:30)
[2020-06-14] MEDS ORDERED: Ondansetron 4 MG/2 ML SDV ONE (07:30)
[2020-06-14] MEDS ORDERED: Neostigmine Methylsulfate 1 MG/ML 5 ML Syringe ONE (07:30)
[2020-06-14] MEDS ORDERED: Rocuronium 50 MG/5 ML Vial ONE (07:30)
[2020-06-14] MEDS ORDERED: Succinylcholine 200 MG/10 ML MDV ONE (07:30)
[2020-06-14] MEDS ORDERED: Propofol 200 MG/20 ML SDV ONE (07:30)
[2020-06-14] MEDS ORDERED: fentaNYL 250 MCG/5 ML SDV ONE ×2 (07:32→08:31)
[2020-06-14] MEDS ORDERED: Lidocaine 1% with EPINEPHrine 1:100,000 50 ML MDV ONE (09:01)
[2020-06-14] MEDS ORDERED: Bupivacaine 0.5% 50 ML MDV ONE (09:01)
[2020-06-14] MEDS ORDERED: Ketorolac 60 MG/2 ML SDV ONE (09:24)
[2020-06-14] MEDS: Acetaminophen 325 MG Tab PO SCH ×4 (11:00→21:30)
[2020-06-14] MEDS ORDERED: hydrOXYzine HCL 100 MG/2 ML SDV IM PRN (11:00)
[2020-06-14] MEDS ORDERED: HYDROmorphone 0.5 MG/0.5 ML Syringe IVPUSH PRN (11:00)
[2020-06-14] MEDS ORDERED: Ondansetron 4 MG/2 ML SDV IVPUSH PRN (11:00)
[2020-06-14] MEDS: Cyclobenzaprine 10 MG Tab PO PRN ×2 (11:00→19:25)
[2020-06-14] MEDS: oxyCODONE 5 MG Tab PO PRN ×4 (11:00→23:25)
[2020-06-14] MEDS ORDERED: HYDROmorphone 1 MG/ML Syringe IV PRN (11:00)
[2020-06-14] MEDS: Docusate Sodium 100 MG Cap PO SCH ×2 (19:24→21:30)
[2020-06-14] MEDS: Celecoxib 200 MG Cap PO SCH ×2 (19:24→21:30)
[2020-06-14] MEDS: Bisacodyl 5 MG Tab PO SCH ×2 (19:25→21:30)
[2020-06-15] MEDS: oxyCODONE 5 MG Tab PO PRN ×2 (03:28→07:41)
[2020-06-15] MEDS: Cyclobenzaprine 10 MG Tab PO PRN (03:28)
[2020-06-15] MEDS: Acetaminophen 325 MG Tab PO SCH ×2 (03:29→09:07)
[2020-06-15 07:38] VITALS: BP 133/62; PULSE 80
[2020-06-15] MEDS ORDERED: Azithromycin 250 MG Tab PO SCH (09:00)
[2020-06-15] MEDS ORDERED: Loratadine 10 MG Tab PO SCH (09:00)
[2020-06-15] MEDS ORDERED: Ascorbic Acid 500 MG Tab PO SCH (09:00)
[2020-06-15] MEDS: Docusate Sodium 100 MG Cap PO SCH (09:07)
[2020-06-15] MEDS: Bisacodyl 5 MG Tab PO SCH (09:07)
[2020-06-15] MEDS: Celecoxib 200 MG Cap PO SCH (09:07)
[2020-06-15] MEDS ORDERED: FLU VACC QS2020-21(6MOS UP)/PF 60 MCG/0.5 ML SYRINGE IM ONE (10:00)
--- NOTE | 2020-06-19 09:38 | DISCH ---
FINAL DIAGNOSIS: Recurrent incarcerated incisional hernia. SECONDARY DIAGNOSES: 1. 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 2. History of hypertension. 3. History of panic attacks. OPERATIVE PROCEDURES: Done on 06/14; open repair of recurrent incarcerated incisional hernia with mesh and excision of portion of right ilioinguinal nerve. SUMMARY: This is a 54-year-old female with relatively well-defined focal hernia in the chronic right lower quadrant. On the date of admission, this was repaired with the mesh plug technique. Postoperatively, she did have some discomfort, but at this point is tolerating well and the patient wishes to be discharged to home. She will be no more than 15 pounds abdominal wall instability. Otherwise, she will be sent home with her usual medications plus Tylenol 1 g p.o. q.i.d. p.r.n., oxycodone 5 mg q.4 hours p.r.n. pain #40, Flexeril 10 mg p.o. q.8 hours p.r.n. muscle spasm #30 with refill x1, and Diflucan 200 mg p.o. q.4 hours as she typically develops some oral thrush after receiving the antibiotic. Follow up will be with Dr. Cobian at [facility] on June 27. /[id number]
--- NOTE | 2020-07-01 10:13 | OR ---
DATE OF PROCEDURE: 06/14/2020 SURGEON: Av Cobian MD PREOPERATIVE DIAGNOSIS: Recurrent incisional hernia. POSTOPERATIVE DIAGNOSES: 1. Recurrent incarcerated incisional hernia. 2. 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 OPERATIVE PROCEDURE: 1. Open repair of recurrent incarcerated incisional hernia repair with mesh (06702, [id number]). 2. Excision of portion of right iliohypogastric nerve (60730). ANESTHESIA: General. ENVIRONMENTAL EMERGENCIES PLANNER: Consuelo Varela PA-C. INDICATIONS FOR PROCEDURE: This is a 54-year-old female presenting with a new onset of a recurrent hernia located in the right lower quadrant. The plan is to proceed with open repair of this with a mesh technique. Potential risks including bleeding, infection, significant likelihood of recurrence of the problem given the instability of her abdominal wall in this area, possible injury to underlying viscera, and possible problems with mesh becoming infected were reviewed, and the patient wishes to proceed. DETAILS OF PROCEDURE: The patient was taken to the operating room and placed in a supine position. After general endotracheal anesthesia was induced, the abdomen was prepped and draped. Davis catheter was inserted. Over the hernia location in the right lower quadrant, a previous incision was then reused and carried down through the skin and subcutaneous tissue. Hernia sac was then encountered and dissected down to the level of the fascia. The fascial defect was reasonably small at this point being around 1.5 cm. The sac was then incised and some incarcerated component consisting of some omentum attached to the sac was either dissected away or a portion of it excised along with the sac and sent for histologic evaluation. Some adhesions underlying the adjacent fascia were then freed up using blunt cautery dissection. Extra large mesh plug was then placed into the defect and affixed with several circumferential 2-0 Vicryl sutures placed in horizontal mattress position. The fascia itself was then closed with a #1 Vicryl stitch in a transverse orientation. What appeared to be the right iliohypogastric nerve was coursing into the area of the fascial repair and was felt to be at risk for scar entrapment and chronic pain. A portion of this was then excised. A flat portion of the mesh plug system was then placed across the field of dissection and fixed there with some 3-0 Vicryl sutures as well and the subcutaneous tissue was then approximated with some 4-0 Vicryl stitch and the skin with a 4-0 Vicryl subcuticular stitch along with surgical glue. Prior to closure using palpation, transversus abdominis plane blocks were placed x2 on the right side and the patient taken to the recovery room in satisfactory condition. Physician oncology physician assistant, Consuelo Varela, played an essential role in assisting in this case, helping to position the patient, retract structures as needed as well as suturing and cutting sutures when indicated. Her presence improved patient safety and decreased the operative time. Av Cobian MD /[id number]
== END 2020-06-15 10:00 | disposition home or self-care (01) | DRG 355 ==
LOC: JP.MS 06:37 → JP.SDS 06:38 → JP.MS 09:35 → EDSTATUS 11:15
PROVIDERS: ADMIT Surgery; ATTEND Surgery
PROC: 0WUF0JZ Supplement Abdominal Wall with Synthetic Substitute, Open Approach (ICD-10-PCS; 2020-06-14)
PROC: 01B Peripheral Nervous System, Excision (ICD-10-PCS; 2020-06-14)
PROC: 3E02340 Introduction of Influenza Vaccine into Muscle, Percutaneous Approach (ICD-10-PCS; principal; 2020-06-15)
DX: K43.2 Incisional hernia without obstruction or gangrene (principal); I10 Essential (primary) hypertension; F41.9 Anxiety disorder, unspecified; G47.00 Insomnia, unspecified; Z90.49 Acquired absence of other specified parts of digestive tract; Z90.89 Acquired absence of other organs; Z98.51 Tubal ligation status; Z90.710 Acquired absence of both cervix and uterus; Z98.890 Other specified postprocedural states; Z87.891 Personal history of nicotine dependence; Z23 Encounter for immunization
CPT/HCPCS: 36415; 80053; 85027; 88302; 88342; 90686; A9270-GY; C1781; G0008; J0171; J0330; J0690; J1100; J1885; J2020; J2185; J2405; J2704; J2710; J2795; J3010; J3490; J7060; J7121; U0002

== ENCOUNTER 2020-09-21 15:19 | Emergency (ER) | payer MEDICARE, OTHER | END 2020-09-21 17:12 | disposition left against medical advice (07) | LOC: JP.ED 15:19 | DX: Z53.21 Procedure and treatment not carried out due to patient leaving prior to being seen by health care provider (principal) ==

== ENCOUNTER 2021-10-09 08:25 | Emergency (ER) | payer MEDICARE, OTHER ==
[2021-10-09 08:43] VITALS: BP 184/85
[2021-10-09] MEDS ORDERED: HYDROmorphone 1 MG/ML Syringe IM ONE (09:14)
[2021-10-09 09:48] LABS: TROPONIN I HIGH SENSITIVITY 4.8 pg/mL (<=60.3)
[2021-10-09 10:30] VITALS: PULSE 72
== END 2021-10-09 10:30 | disposition home or self-care (01) ==
LOC: JP.ED 08:25
DX: R07.89 Other chest pain (principal); K21.9 Gastro-esophageal reflux disease without esophagitis; Z72.0 Tobacco use; Z91.040 Latex allergy status
CPT/HCPCS: 36415; 80048; 84484; 85027; 93005; 93010; 96372; 99283; 99285-25; J1170

== ENCOUNTER 2024-09-29 00:39 | Emergency (ER) | payer MEDICARE, OTHER ==
[2024-09-29 00:48] VITALS: BP 134/56; PULSE 82
[2024-09-29 01:15] LABS: BASOPHILS ABSOLUTE AUTO 0.03 K/uL (0.00-0.10); BASOPHILS PERCENT AUTO 0.5 % (0.1-1.3); EOSINOPHILS ABSOLUTE AUTO 0.08 K/uL (0.00-0.40); EOSINOPHILS PERCENT AUTO 1.3 % (0.0-5.4); HEMATOCRIT 48.1 % (34.3-46.0); HEMOGLOBIN 16.1 g/dL (11.2-15.5); IMMATURE GRAN ABSOLUTE AUTO 0.02 K/uL (0.00-0.23); IMMATURE GRAN PERCENT AUTO 0.3 % (0.0-0.7); LYMPHOCYTES ABSOLUTE AUTO 2.75 K/uL (0.8-3.3); LYMPHOCYTES PERCENT AUTO 45.2 % (11.4-47.7); MEAN CORPUSCULAR HEMOGLOBIN 31.6 pg (31.6-35.5); MEAN CORPUSCULAR HGB CONC 33.5 g/dL (31.6-35.5); MEAN CORPUSCULAR VOLUME 94.5 fL (81.4-99.0); MONOCYTES ABSOLUTE AUTO 0.43 K/uL (0.20-0.90); MONOCYTES PERCENT AUTO 7.1 % (3.3-12.6); NEUTROPHILS ABSOLUTE AUTO 2.78 K/uL (1.0-7.6); NEUTROPHILS PERCENT AUTO 45.6 % (40.0-78.1); PLATELET COUNT,PLT 150 K/uL (130-375); RED BLOOD CELL COUNT 5.09 M/uL (3.77-5.24); WHITE BLOOD CELL COUNT,WBC 6.1 K/uL (3.2-11.0)
[2024-09-29 01:18] LABS: APPEARANCE,URINE CLEAR (CLEAR); BILIRUBIN,URINE SMALL (NEGATIVE); COLOR,URINE YELLOW (YELLOW); GLUCOSE,URINE NEGATIVE (NEGATIVE); KETONES,URINE TRACE mg/dL (NEGATIVE); LEUKOCYTE ESTERASE,URINE NEGATIVE (NEGATIVE); NITRITE,URINE NEGATIVE (NEGATIVE); OCCULT BLOOD,URINE NEGATIVE (NEGATIVE); PH,URINE 5.5 (5.0-8.0); PROTEIN,URINE 30 mg/dL (NEGATIVE); UROBILINOGEN,URINE 0.2 EU/dL (0.2-1.0)
[2024-09-29 01:35] LABS: AMPHETAMINES SCREEN, URINE NEGATIVE (NEGATIVE); BARBITURATE SCREEN,URINE NEGATIVE (NEGATIVE); BENZODIAZEPINES SCREEN,URINE NEGATIVE (NEGATIVE); METHADONE SCREEN, URINE NEGATIVE (NEGATIVE); METHAMPHETAMINES SCREEN, URINE NEGATIVE (NEGATIVE); OXYCODONE SCREEN,URINE NEGATIVE (NEGATIVE); PROPOXYPHENE SCREEN,URINE NEGATIVE (NEGATIVE); THC SCREEN,URINE 50 NG/ML PRESUMPTIVE POSITIVE (NEGATIVE)
[2024-09-29 01:35] LABS: AMORPHOUS SEDIMENT,URINE NOT SEEN; BACTERIA,URINE FEW; EPITHELIAL CELLS,URINE FEW; MUCUS,URINE FEW; RBC,URINE 0-5 (0-5); WBC,URINE 0-5 (0-5)
[2024-09-29 01:39] LABS: A/G RATIO 1.1 (1.2-2.2); ALANINE AMINOTRANSFERASE,ALT 29 U/L (12-78); ALBUMIN 3.8 g/dL (3.4-5.0); ALKALINE PHOSPHATASE 73 U/L (46-116); ANION GAP 12.4 mmol/L (5.0-14.0); ASPARTATE AMNIOTRANSFERASE,AST 22 U/L (15-37); BILIRUBIN TOTAL 0.4 mg/dL (0.2-1.0); BLOOD UREA NITROGEN,BUN 20 mg/dL (7-18); CALCIUM 9.2 mg/dL (8.5-10.1); CARBON DIOXIDE,CO2 25 mmol/L (21-32); CHLORIDE,CL 106 mmol/L (100-108); CREATININE 0.7 mg/dL (0.6-1.0); ESTIMATED GFR 99 mL/min (>60); GLUCOSE RANDOM 111 mg/dL (74-106); POTASSIUM,K 3.8 mmol/L (3.6-5.2); PROTEIN TOTAL,TP 7.3 g/dL (6.4-8.2); SODIUM,NA 143 mmol/L (140-148); TROPONIN I HIGH SENSITIVITY < 4.0 pg/mL (<=60.3)
[2024-09-29] MEDS: droPERidol 5 MG/2 ML SDV IVPUSH ONE (01:42)
[2024-09-29] MEDS: Sodium Chloride 0.9% 1,000 ML IV STA (01:43)
[2024-09-29] MEDS: Sodium Chloride 0.9% 10 ML Syringe FLUSH PRN (01:45)
[2024-09-29] MEDS: Iopamidol 612 MG/ML 100 ML Bottle IV SCH (02:12)
[2024-09-29] MEDS: Sodium Chloride 0.9% 100 ML IV SCH (02:12)
== END 2024-09-29 03:29 | disposition home or self-care (01) ==
LOC: JP.ED 00:39
DX: R11.2 Nausea with vomiting, unspecified (principal); F12.10 Cannabis abuse, uncomplicated; F17.210 Nicotine dependence, cigarettes, uncomplicated; Z79.899 Other long term (current) drug therapy; Z91.040 Latex allergy status; Z90.49 Acquired absence of other specified parts of digestive tract
CPT/HCPCS: 36415; 74177; 80053; 80305; 81001; 83605; 83690; 84484; 85025; 96361; 96374; 99284; J1790; J7030; Q9967; 99283